=== PATIENT | male | born 1960 | race Two or more races ===

== ENCOUNTER 2020-08-10 17:47 | Outpatient (REF) | payer MEDICARE, MEDICAID, SELFPAY ==
--- NOTE | 2020-08-10 | US_ITS ---
EXAMINATION: US VENOUS ULTRASOUND WITH DOPPLER LOWER EXTREMITY, RIGHT CLINICAL INFORMATION: Right leg edema. COMPARISON: None. TECHNIQUE: Ultrasound of the deep veins is performed from the hip to the calf with compression sonography and color and pulse Doppler assessment. Spectral analysis with color-flow imaging is performed. FINDINGS: There is normal venous compression and respiratory variation and augmented flow. The visualized common femoral vein, superficial femoral vein, profunda femoral vein, popliteal vein, and the trifurcation region shows no evidence of deep venous thrombosis. There is no significant popliteal fossa cyst. There is a complex cystic area along the right thigh where a palpable lump is noted, suggestive of hematoma. It measures 5.0 x 1.9 x 8.0 cm. It is compressible. There is a small compressible varicosity seen in the calf region Incidental finding of a small lymph node left groin measuring 3.1 cm. US/US venous duplex LE RT IMPRESSION: No DVT demonstrated in the right lower extremity. Complex cystic area along the right thigh where patient has a palpable lump and known trauma. This is most suggestive of hematoma.
== END 2020-08-10 17:48 | disposition home or self-care (01) ==
LOC: HO.US 17:47
DX: R60.0 Localized edema (principal)
CPT/HCPCS: 93971

== ENCOUNTER 2020-08-10 18:31 | Emergency (ER) | payer MEDICARE, MEDICAID, SELFPAY ==
[2020-08-10 18:36] VITALS: BP 141/101; PULSE 95; RESP 16; TEMP 36.8; O2SAT 97; BMI 34.2
--- NOTE | 2020-08-10 18:56 | ECG_ITS ---
Test Reason : CHESTPAIN Blood Pressure : / mmHG Vent. Rate : 085 BPM Atrial Rate : 085 BPM P-R Int : 158 ms QRS Dur : 086 ms QT Int : 382 ms P-R-T Axes : 041 -14 049 degrees QTc Int : 454 ms Normal sinus rhythm with sinus arrhythmia Septal infarct (cited on or before 30-JUN-2020) Abnormal ECG When compared with ECG of 30-JUN-2020 23:12, Premature atrial complexes are no longer Present T wave amplitude has increased in Lateral leads Referred By: Naheed Enrique Electronically Signed By:SANTOSH BAUM MD
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
[2020-08-10 20:16] VITALS: BP 139/121; PULSE 88; RESP 12; TEMP 36.8; O2SAT 92
[2020-08-10 20:33] LABS: Hematocrit 36.1 % (42-52); Hemoglobin 11.8 g/dl (14.0-18.0); Mean Corpuscular HGB Conc 32.7 g/dl (31.0-36.0); Mean Corpuscular Hemoglobin 33.5 pg (27.0-33.0); Mean Corpuscular Volume 102.6 fL (80-98); Mean Platelet Volume 10.2 fL (9.4-12.4); Platelet Count 138 X10*3/uL (160-400); Red Blood Count 3.52 X10*6/uL (4.60-5.80); Red Cell Distribution Width 14.6 % (11.0-16.0); White Blood Count 5.9 X10*3/uL (4.8-10.8)
[2020-08-10 20:59] LABS: Anion Gap 12 (12-20); Blood Urea Nitrogen 14 mg/dL (9-16); Calcium 9.2 mg/dL (8.4-10.2); Carbon Dioxide 33 mmol/L (22-29); Chloride 97 mmol/L (96-108); Creatinine Clr Calc Pharmacy 96.8; Estimated Glomerular Filt Rate > 60; Glucose Random 105 mg/dL (60-115); Sodium 137 mmol/L (135-145)
[2020-08-10 21:01] VITALS: PULSE 101
--- NOTE | 2020-08-10 21:01 | PC.NURSE ---
Pt eating [employer], no distress, awaiting lab results
[2020-08-10 21:03] LABS: Alanine Aminotransferase 16 U/L (0-40); Alkaline Phosphatase 158 U/L (39-117); Aspartate Amino Transferase 27 U/L (5-37); Bilirubin Direct 0.3 mg/dL (0.0-0.5); Bilirubin Total 0.5 mg/dL (0.0-1.0); Lipase 18 U/L (8-78); Total Protein 8.4 g/dL (6.5-8.0)
[2020-08-10 21:05] LABS: B Type Natriuretic Peptide 50 pg/mL (<100); Troponin-I High Sensitivity 14.9 ng/L (<3.5-35.0)
[2020-08-10 21:07] LABS: Glucose Urine UA NEG (NEG); Leukocyte Esterase Urine NEG (NEG); Nitrite Urine NEG (NEG); PH 7.5 (5.0-8.0); Urine Blood NEG (NEG); Urine Ketones NEG (NEG); Urine Protein NEG (NEG-TRACE)
[2020-08-10 21:11] LABS: Appearance Urine CLEAR; Color Urine YELLOW; UACC Culture Trigger NO
[2020-08-10 21:20] LABS: D Dimer 3735 NG/ML
--- NOTE | 2020-08-10 21:26 | CT_ITS ---
EXAMINATION: CT ANGIOGRAM OF THE CHEST WITH AND WITHOUT CONTRAST (CT PULMONARY ANGIOGRAM FOR PE) CLINICAL INFORMATION: recent hospitalization, elevated D-dimer, SOB. COMPARISON: Chest CT 06/30/2020 TECHNIQUE: Prior to contrast administration, noncontrast localization images were obtained. Subsequently, multidetector volumetric imaging was performed from the thoracic inlet to below the diaphragms following the administration of 65 mL Omnipaque 350 intravenous contrast. No contrast reaction reported Sagittal, coronal, and MIP oblique sagittal reformatted images were obtained on the CT workstation, uploaded to PACS, and reviewed. This CT examination was performed using dose optimization techniques as appropriate, variously including the following: *Automated exposure control *Adjustment of mA and/or kV according to patient size (this includes techniques or standardized protocols for targeted exams where dose is matched to indication/reason for exam; i.e. extremities or head) *Use of iterative reconstruction technique Total exam dose-length product 416 mGy-cm FINDINGS: QUALITY OF STUDY/CONTRAST BOLUS: Satisfactory. PULMONARY ARTERIES: Evaluation of the segmental and subsegmental pulmonary arteries is limited by contrast underfilling. No central pulmonary embolus seen. THORACIC AORTA: No aneurysm or dissection. LUNG: There is new right middle lobe and right lower lobe consolidation, more likely atelectasis than aspiration or pneumonia. There is diffuse mosaic lung attenuation suggesting small airways disease. Patchy airspace opacities are seen in the periphery of the left upper lobe. There are new abnormalities and previously seen left upper lobe abnormalities have resolved. PLEURA: No pleural effusion or pneumothorax. MEDIASTINUM: Mild cardiomegaly. No pericardial effusion. There is unchanged fluid density adjacent the left trachea in image 20/72. No hilar or mediastinal lymphadenopathy. No evidence of septal bowing or right heart strain. CHEST WALL/AXILLA: No axillary or internal mammary lymphadenopathy. OSSEOUS STRUCTURES: No acute or suspicious osseous abnormality. UPPER ABDOMEN: There is a nodular hepatic contour consistent with cirrhosis. Likely bilateral renal cysts. There is a low density right adrenal nodule likely an adrenal adenoma No reflux of contrast into the hepatic veins to suggest elevated right heart pressures. IMPRESSION: No central pulmonary embolus. Limited evaluation of the segmental and subsegmental pulmonary arteries. New right middle lobe and right lower lobe consolidation, more likely atelectasis than aspiration or pneumonia. There is diffuse mosaic lung attenuation suggesting small airways disease. Nonspecific patchy opacities in the left upper lobe, possibly atelectasis. VTE: negative
[2020-08-10] MEDS: iohexoL 350 MG/ML 100 ML INFUS..BTL 65 ML IV (22:15)
[2020-08-10 23:53] VITALS: BP 142/99; PULSE 98; RESP 18; TEMP 37.1; O2SAT 96
[2020-08-11 00:39] LABS: Troponin-I High Sensitivity 15.7 ng/L (<3.5-35.0)
== END 2020-08-11 01:17 | disposition home or self-care (01) ==
PROVIDERS: Emergency Provider Emergency Medicine
DX: R07.89 Other chest pain (principal); I10 Essential (primary) hypertension; Z85.05 Personal history of malignant neoplasm of liver
CPT/HCPCS: 36415; 71045; 71275; 80048; 80076; 81003; 83690; 83880; 84484; 85027; 85379; 93005; 99284

== ENCOUNTER 2020-09-07 12:47 | Outpatient (REF) | payer MEDICARE, MEDICAID, SELFPAY ==
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
== END 2020-09-07 12:48 | disposition home or self-care (01) ==
LOC: HO.RESP 12:47
PROVIDERS: PCP Nurse Practitioner Primary Care; Visit Provider Nurse Practitioner Primary Care
DX: R06.02 Shortness of breath (principal)
CPT/HCPCS: 94060; 94727; 94729

== ENCOUNTER → 2020-09-21 14:57 | Outpatient (BNVA) | payer MEDICARE, MEDICAID, SELFPAY | PROVIDERS: PCP Nurse Practitioner Primary Care; Visit Provider Surgery | DX: S70.10XA Contusion of unspecified thigh, initial encounter (principal) | CPT/HCPCS: 99202 ==

== ENCOUNTER → 2020-11-23 13:58 | Outpatient (BNVA) | payer OTHER, MEDICARE, MEDICAID, SELFPAY | PROVIDERS: PCP Nurse Practitioner Primary Care; Visit Provider Internal Medicine Pulmonary Disease | DX: R06.00 Dyspnea, unspecified (principal); M54.9 Dorsalgia, unspecified; Z99.81 Dependence on supplemental oxygen; V89.2XXD Person injured in unspecified motor-vehicle accident, traffic, subsequent encounter | CPT/HCPCS: 99202 ==

== ENCOUNTER 2020-12-09 13:15 | Outpatient (REF) | payer MEDICARE, MEDICAID, SELFPAY ==
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
== END 2020-12-09 13:16 | disposition home or self-care (01) ==
LOC: HO.CT 13:15
PROVIDERS: Visit Provider Internal Medicine Pulmonary Disease
DX: R06.02 Shortness of breath (principal); R06.00 Dyspnea, unspecified
CPT/HCPCS: 71250

== ENCOUNTER 2020-12-09 13:46 | Outpatient (REF) | payer MEDICARE, MEDICAID, SELFPAY ==
--- NOTE | 2020-12-09 17:09 | PFT_ITS ---
FLOWS: FEV1 of 30% of predicted at 1.16 L. FVC 30% of predicted at 1.48 L. FEV1 to FVC ratio of 0.78. No bronchodilator response except in small to medium airways. LUNG VOLUMES: Total lung capacity 47% of predicted at 3.41 L. Residual volume 76% of predicted at 1.78 L. Slow vital capacity 33% of predicted at 1.63 L. Expiratory reserve volume 6% of predicted at 0.09 L. Diffusion capacity is severely decreased, diffusion capacity adjust to normal after correction for alveolar ventilation. In comparison to pulmonary function test performed on September 07, 2020, FEV1 has been without significant changes; FVC has decreased by 0.27 L; total lung capacity has decreased by 0.75 L; residual volume has decreased by 0.8 L; slow vital capacity and expiratory reserve volume have been without significant changes; diffusion capacity has decreased by 0.88 mL/minute per mmHg. IMPRESSION: Combined severe obstructive and restrictive ventilatory defect with no bronchodilator response except in small to medium airways. Decreased expiratory reserve volume suggests extrathoracic restriction likely secondary to abdominal obesity. MD BERRY Forrester/MODL / [id number]
== END 2020-12-09 13:47 | disposition home or self-care (01) ==
LOC: HO.RESP 13:46
PROVIDERS: PCP Nurse Practitioner Primary Care; Visit Provider Internal Medicine Pulmonary Disease
DX: R06.00 Dyspnea, unspecified (principal)
CPT/HCPCS: 94060; 94727; 94729

== ENCOUNTER → 2021-02-27 13:56 | Outpatient (REF) | payer MEDICARE, MEDICAID, SELFPAY ==
--- NOTE | 2021-02-27 13:59 | CA_ITS ---
Transthoracic Echocardiogram Patient (Last, First, Middle): Dequan Delgadillo, Gender: Male Date of : 1960 Age: 61 Procedure Date: 02/27/2021 Procedure Type: Transthoracic Echocardiogram Location: OP Height: 180.34 cm Weight: 107.05 kg BSA: 2.26 m2 Heart Rate: bpm BP: 140 / 90 mmHg Aging Room Hand: MARII Referring MD: Manny Leggett MD Symptoms: R06.00 - Dyspnea, unspecified Study Quality: Fair ECG Rhythm: Sinus Conclusions: - The left ventricular systolic function is normal. The visually estimated ejection fraction is between 60-65%. - Normal right ventricular cavity size and systolic function. - No obvious valvular pathology seen on this study. - Mild to moderate pulmonary hypertension is present. - The inferior vena cava is dilated and does not collapse with inspiration. - Interatrial shunt cannot be excluded. If clinically indicated, consider bubble study. Findings Left Ventricle Normal left ventricular cavity size. There is mildly increased left ventricular wall thickness. The left ventricular systolic function is normal. The visually estimated ejection fraction is between 60-65%. There is no evidence of regional wall motion abnormalities. Diastolic function is normal for age. Right Ventricle Normal right ventricular cavity size and systolic function. Atria The left atrium is normal in size. Interatrial shunt cannot be excluded. The right atrium is normal in size. Aortic Valve There is a normal trileaflet aortic valve. There is no aortic valve stenosis. There is no aortic valve regurgitation. Mitral Valve The mitral valve appears normal. There is no mitral valve regurgitation. There is no mitral valve stenosis. Pulmonic Valve The pulmonic valve was not well visualized. Tricuspid Valve Normal tricuspid valve structure. There is trace tricuspid valve regurgitation. The right ventricular systolic pressure is 47 mmHg. Mild to moderate pulmonary hypertension is present. Great Vessels The aortic annulus, sinuses of valsalva, and asc aorta are normal in size. Venous The inferior vena cava is dilated and does not collapse with inspiration. Pericardium/Pleural There is no evidence of pericardial effusion. Prior Study Comparison Changes noted compared to prior study dated: 08/13/2014. IVC not previously described. Pulmonary hypertension now present. Recommendations, Care & Conclusions No obvious valvular pathology seen on this study. Measurements 2D Linear Measurements IVSd: 1.12 0.6-0.9/0.6-1.0 cm LVIDd: 4.98 3.9-5.3/4.2-5.9 cm LVIDd Index: 2.20 2.4-3.2/2.2-3.1 cm/m2 LVIDs: 2.70 2.0-3.6 cm LVPWd: 1.10 0.7-1.1 cm Ao Root: 3.60 2.1-3.5 cm LA Diam: 4.30 2.7-3.8/3.0-4.0 cm LAIDs Index: 1.90 1.5-2.3 cm/m2 LV Mass: 259.73 67-162/88-224 g LV Mass Index: 114.93 43-95/49-115 g/m2 LVOT Diam: 2.30 3.0+(-)1.3 cm 2D Systolic Function EF 4C: 69.50 >55% EF 2C: 62.30 >55% EF BiP: 65.50 >55% Mitral Valve MV Pk E: 0.49 MV PK A: 0.53 MV Decel Time: 406.00 E/A: 0.90 E'Lateral: 13.30 E'Medial: 8.27 E/E' Med: 5.90 E/E' Lat: 3.70 PHT: 119.00 MVA PHT: 1.85 Decel Yates: 1.21 Aortic Valve AoV Pk Lanre: 1.57 AoV Mn Lanre: 0.96 AoV VTI: 0.30 AoV Pk Grad: 10.00 Aov Mn Grad: 4.00 NUBIA Cont.VTI: 3.32 LVOT LVOT Pk Lanre: 1.24 LVOT Mn Lanre: 0.77 LVOT VTI: 0.24 LVOT Pk Grad: 6.00 LVOT Mn Grad: 3.00 LVOT Diam: 2.30 LVOT Area: 4.15 Diastolic Function MV Pk E: 0.49 MV Pk A: 0.53 E/A: 0.90 E'Medial: 8.27 E/E' Med: 5.90 E' Laterial: 13.30 E/E' Lat: 3.70 Tricuspid Valve TR Pk Lanre: 2.85 TR Pk Grad: 32.00 RA Press: 15.00 RVSP: 47.00 Great Vessels Aorta Ao Root-2D: 3.60 2.0-3.7 cm Ao Asc: 3.30 2.1-3.4 cm Ao Arch: 2.60 Updated in Other Vendor System with Status of Final Robson Radford MD electronically signed on 02/28/2021 1:20:49 PM with status of Final
== END ==
LOC: HO.CARD 13:56
PROVIDERS: PCP Nurse Practitioner Primary Care; Visit Provider Internal Medicine Pulmonary Disease
DX: R06.00 Dyspnea, unspecified (principal)
CPT/HCPCS: 93306

== ENCOUNTER 2021-08-16 13:08 | Outpatient (REF) | payer MEDICARE, MEDICAID, SELFPAY ==
--- NOTE | ~2021-08-16 | XR_ITS ---
EXAMINATION: XR CHEST CLINICAL INFORMATION: COPD. Hypoxemia. COMPARISON: [facility] chest x-ray July [address] November 2020 TECHNIQUE: 2 views of the chest were obtained. FINDINGS: The cardiac and mediastinal contours are stable. There is elevation of the right hemidiaphragm that is unchanged. There is adjacent subsegmental atelectasis at the right lung base. The lungs are otherwise clear. There is no pleural effusion or pneumothorax. There is an old right anterior fourth rib fracture. There are degenerative changes of the spine. XR/XR chest 2V IMPRESSION: No acute disease in the chest. Elevated right hemidiaphragm and chronic segmental atelectasis at the right lung base. Findings are similar to previous exams.
[2021-08-16 13:26] LABS: MANUAL DIFF FLAG NO
[2021-08-16 14:22] LABS: Basophils Percent Auto 0.4 % (0-2); Eosinophils Absolute Auto 0.2 X10*3/uL (0.0-0.4); Eosinophils Percent Auto 3.1 % (0-4); Hematocrit 42.9 % (42-52); Hemoglobin 14.2 g/dl (14.0-18.0); Imm Gran Abs Auto 0.01 X10*3/uL (0.00-0.03); Imm Gran Pct Auto 0.2 % (0.0-0.4); Lymphocytes Absolute Auto 0.7 X10*3/uL (1.2-4.9); Lymphocytes Percent Auto 12.9 % (20-40); Mean Corpuscular HGB Conc 33.1 g/dl (31.0-36.0); Mean Corpuscular Hemoglobin 34.1 pg (27.0-33.0); Mean Corpuscular Volume 103.1 fL (80-98); Mean Platelet Volume 10.8 fL (9.4-12.4); Monocytes Absolute Auto 0.4 X10*3/uL (0.1-1.2); Monocytes Percent Auto 7.2 % (2-11); Neutrophils Absolute Auto 4.3 X10*3/uL (2.0-8.3); Neutrophils Percent Auto 76.2 % (45-73); Red Blood Count 4.16 X10*6/uL (4.60-5.80); Red Cell Distribution Width 12.8 % (11.0-16.0); White Blood Count 5.6 X10*3/uL (4.8-10.8)
[2021-08-16 14:23] LABS: Platelet Count 92 X10*3/uL (160-400)
[2021-08-16 14:50] LABS: Alanine Aminotransferase 20 U/L (0-40); Albumin Level 4.1 g/dL (3.5-5.0); Alkaline Phosphatase 114 U/L (39-117); Anion Gap 10 (12-20); Aspartate Amino Transferase 25 U/L (5-37); Bilirubin Total 0.7 mg/dL (0.0-1.0); Blood Urea Nitrogen 17 mg/dL (9-16); Calcium 8.9 mg/dL (8.4-10.2); Carbon Dioxide 34 mmol/L (22-29); Chloride 99 mmol/L (96-108); Estimated Glomerular Filt Rate > 60; Glucose Random 157 mg/dL (60-115); Potassium 4.7 mmol/L (3.3-5.1); Sodium 138 mmol/L (135-145); Total Protein 7.8 g/dL (6.5-8.0)
[2021-08-16 15:11] LABS: Syphilis Screen Nonreactive (Nonreactive); TSH reflex Free T4 1.39 uIU/mL (0.32-4.0); Vitamin D 25-OH Total 28.4 ng/mL (>30)
[2021-08-16 15:13] LABS: Microalbum/Creatinine Ratio Ur 10.9 ug/mg cr
[2021-08-17 08:58] LABS: HIV AB/AG Nonreactive (Nonreactive); HIV Num 1 0.06 S/CO (0.00-0.99)
[2021-08-17 09:47] LABS: HBS Num1 45.15 mIU/mL (0-7.99); HBc Num1 9.34 S/CO (0.00-0.79); HBsAGNum1 0.16 S/CO (0.00-0.99); Hepatitis B Surface Antigen Negative (Negative); ~Hepatitis B Surface Antibody REACTIVE (Nonreactive)
[2021-08-17 11:49] LABS: HBc Num3 9.03 S/CO; Hepatitis B Core Antibody Reactive (Nonreactive)
[2021-08-18 06:53] LABS: Hepatitis A Antibody IgG REACTIVE (Nonreactive); ~Hepatitis A Antibody IgG 9.24 S/CO (0.00-0.99)
[2021-08-18 07:38] LABS: Hepatitis A Antibody IgM 0.22 Index (0-0.79); ~Hepatitis A Antibody IgM Nonreactive (Nonreactive)
[2021-08-20 14:07] LABS: HCV Log PCR <1.18 NOT DETECTED Log IU/mL (NOT DETECTED); HepC Viral Load <15 NOT DETECTED IU/mL (NOT DETECTED)
== END 2021-08-16 13:09 | disposition home or self-care (01) ==
LOC: HO.LAB 13:08
PROVIDERS: PCP Nurse Practitioner Primary Care; Visit Provider Nurse Practitioner Primary Care
DX: Z01.84 Encounter for antibody response examination (principal); Z11.4 Encounter for screening for human immunodeficiency virus [HIV]; J44.9 Chronic obstructive pulmonary disease, unspecified; R09.02 Hypoxemia
CPT/HCPCS: 36415; 71046; 80053; 82043; 82306; 84443; 85025; 86704; 86706; 86708; 86709; 86780; 87340; 87389; 87522

== ENCOUNTER → 2021-08-24 09:58 | Outpatient (REF) | payer MEDICARE, MEDICAID, SELFPAY ==
--- NOTE | 2021-08-24 10:02 | CA_ITS ---
Acquisition Time: 2021-08-24 10:02:07 Total Exercise Time: 00:21:17 Test Indications: cp, sob Medications: see chart Protocol: DOBUTAMINE Max HR: 111 BPM 69% of Pred: 159 BPM Max BP: 122/090 mmHG Max Work Load: 1.0 METS Pharmacological stress test with Dobutamine infusion at peak of 30mcg/kg/min, achieving 69% MPHR With Stop of infusion due to drop in BP to low of 88/50 and report of lightheadeness. During infusion he was sitting and kicking his legs, moving arms, without anginal symptoms, with isolated PAC and on brief run of SVT 4 beats, with nondiagnostic EKG for ischemia due suboptimal heart rate. In recovery his BP initially improved then dropped to 70/54. He was placed in supine position and IV fluid opened wide. Recheck of BP 3 min later was 100/60. BP improved through remainder of recovery. He was transitioned into a sitting position which he tolerated without symptoms. He was then allowed to stand and march in place which he again tolerated without symptoms. EKG tracings remianed stable SR and heart rate settled back to baseline in recovery. He was given a snack of juice and crackers. His BP stablized. He was gvien a total of 350cc normal saline IV. He was recovered a total of 25 min, condition was asymptomatic and stable. He was allowed to leave cardiology dept, ambulating steady. Will notifiy Dr Morales of the above events. Test reviewed with Dr Payne. Referred By: Vitaliy Edwards Overread By: MATILDA RANDALL
== END ==
LOC: HO.CARD 09:58
PROVIDERS: PCP Nurse Practitioner Primary Care; Visit Provider Internal Medicine Cardiovascular Disease
DX: R06.02 Shortness of breath (principal)
CPT/HCPCS: 93017; J1250

== ENCOUNTER 2021-11-08 16:40 | Emergency (ER) | payer MEDICARE, MEDICAID, SELFPAY ==
[2021-11-08 18:43] VITALS: BP 127/82; PULSE 106; RESP 24; TEMP 35.9; O2SAT 71; BMI 31.9
[2021-11-08 19:06] VITALS: O2SAT 93
[2021-11-08] MEDS: Lidocaine HCl 2 % MPF 5 ML VIAL SUBCUT (19:08)
[2021-11-08] MEDS: Diphth,Pertus(ACell),Tet Adult 0.5 ML SYRINGE IM (19:23)
--- NOTE | 2021-11-08 19:54 | ED.WOUNDLAC ---
HPI - Wound/Laceration General Chief Complaint: Wound/Laceration Stated Complaint: finger lac Time Seen by Provider: 11/08/21 19:04 Source: patient Mode of arrival: ambulatory Limitations: no limitations History of Present Illness HPI narrative: 51-year-old male here with laceration to the right index finger after cutting it with a steak knife just prior to arrival. Tetanus status is unknown. The patient denies any numbness, tingling, weakness, fevers or chills. Of note the patient have underlying history of COPD. He normally is on 2 L of oxygen all this. Unfortunately he forgot his oxygen and drove here today by himself. During triage his oxygen saturation was 71% on room air. He denies any shortness of breath, cough, fevers, recent illnesses and is feeling well Related Data Home Medications Medication Instructions Recorded Confirmed albuterol sulfate 90 mcg/actuation INHALATION 09/21/20 aerosol inhaler amlodipine 5 mg tablet mg PO 09/21/20 clonidine HCl 0.1 mg tablet mg PO 09/21/20 ipratropium 20 mcg-albuterol 100 INHALATION 09/21/20 mcg/actuation mist for inhalation lisinopril 20 mg tablet mg PO 09/21/20 melatonin 10 mg tablet 10 mg PO BEDTIME PRN 09/21/20 methadone 10 mg/mL oral concentrate 10 mg PO DAILY 09/21/20 pantoprazole 40 mg tablet,delayed mg PO 09/21/20 release pregabalin 50 mg capsule mg PO 09/21/20 Previous Rx's Medication Instructions Recorded cholecalciferol (vitamin D3) 50 50 mcg PO DAILY 30 Days #30 cap 10/05/20 mcg (2,000 unit) capsule Allergies Allergy/AdvReac Type Severity Reaction Status Date / Time Penicillins [PENICILLINS] Allergy Intermediate UNKNOWN Verified 11/23/20 14:09 Gadolinium-Containing Allergy Mild VOMITING Verified 11/23/20 14:09 Contrast Medi [Gadolinium-Containing Contrast] Sulfa (Sulfonamide Allergy Unknown RASH Verified 11/08/21 18:43 Antibiotics) [SULFA (SULFONAMIDE ANTIBIOTICS)] temazepam [Restoril] Allergy Unknown Hallucinations, Verified 11/23/20 14:09 amnesia Review of Systems Review of Systems: Yes all other systems are reviewed and are negative Constitutional: Constitutional: Reports no additional constitutional complaints, Denies body ache(s), Denies chills, Denies fever(s), Denies headache(s) and Denies weakness Eyes: Eyes: Reports no additional eye complaints and Denies change in vision ENT: Reports system reviewed and no additional complaints, except as documented, Denies dizziness, Denies headache(s), Denies nasal congestion, Denies nasal discharge and Denies neck pain Cardiovascular: Cardiovascular: Reports no additional cardiovascular complaints, Denies chest pain, Denies leg edema and Denies dyspnea Respiratory: Respiratory: Reports no additional respiratory complaints, Denies cough and Denies dyspnea Gastrointestinal: Gastrointestinal: Reports no additional gastrointestinal complaints, Denies abdominal pain, Denies diarrhea, Denies nausea and Denies vomiting Genitourinary: Genitourinary: Denies urinary incontinence Musculoskeletal: Musculoskeletal: Reports no additional musculoskeletal complaints, Denies back pain, Denies arthralgias, Denies joint swelling, Denies neck pain, Denies numbness and Denies tingling Integumentary/Breasts: Skin/Breast: Reports system reviewed and no additional complaints, except as docu and Denies rash Comments: +laceration Neurologic: Reports system reviewed and no additional complaints, except as documented, Denies Abnormal speech present, Denies dizziness, Denies headache(s), Denies numbness, Denies tingling and Denies weakness PMFSH Past Medical History Attestation statement: The following information was validated with the patient. Source: old records reviewed and nursing notes reviewed Medical History Hepatitis C History of narcotic addiction Hypertension Hypertension Liver cancer Thigh hematoma Tuberculosis Surgical History H/O colonoscopy H/O hemorrhoidectomy Social History Social History Alcohol intake: never Years Smoked: 49 yrs Advance Directives: No Advance Directives Information Provided: Yes Physical Exam Vital Signs: Vital Signs: Last Vital Signs Temp 96.6 F L 11/08/21 18:43 Pulse 106 H 11/08/21 18:43 Resp 24 H 11/08/21 18:43 BP 127/82 11/08/21 18:43 Pulse Ox 93 11/08/21 19:06 BMI result Body Mass Index 31.9 Const: General: cooperative, healthy appearing, comfortable and no acute distress Orientation/consciousness: patient oriented x3 Limitations: no limitations HENMT: Head: Yes normal to inspection Ears: hearing grossly normal bilaterally General nose exam: Normal external nose present Face and sinus: Yes normal facial exam Mouth: Normal oral and palatal mucosa present Throat: Yes posterior oropharynx normal Eyes: General: appearance normal, both eyes and all related structures Pupils: Equal, round and reactive pupils present Neck: Neck: Yes normal visual inspection Chest: Chest palpation & inspection: normal inspection of the chest Resp: Effort & Inspection: normal respiratory effort Auscultation: clear to auscultation bilaterally Cardio: Rate: regular rate Rhythm: regular rhythm Peripheral pulses: Peripheral pulses 2+ throughout GI: Inspection: Yes normal to inspection Palpation (GI): Soft to palpation and nontender Auscultation: normal bowel sounds Back/Spine/Pelvis: Thoracic/Lumbar Spine: thoracic and lumbar spine normal to inspection Skin: General skin exam: no rashes or lesions noted Neuro: General: patient oriented x3, no focal motor deficits and normal sensation to monofilament Cranial nerves: Yes Equal, round and reactive pupils present Cognition (Neuro): normal cognition Speech: No Abnormal speech present Gait exam (Neuro): Normal gait present Motor exam (neuro): 5/5 motor strength present throughout Extrem: Other: To the dorsal aspect of the right index finger over the MCP there is a 2cm laceration with active bleeding. Patient able to flex and extend the difficulty with no pain. Neurovascular intact distally. Normal cap refill General: Yes normal to inspection Course Course Course Narrative: 61-year-old male here with laceration to the right index finger from a steak knife just prior to arrival. Patient has an active bleeding which is improved with direct pressure. Neurovascularly intact distally to the affected site. See procedure note for wound repair. Tetanus will be updated. Noted to have hypoxia triage. Patient has underlying history of COPD and did not bring his ambulatory oxygen tank with him although he is supposed to be on 2 L of oxygen all times. He denies any shortness of breath, chest pain, cough or recent illnesses and is feeling well. He was placed on oxygen when he was brought to a stretcher and his oxygen saturation improved to 92%. Lungs are clear. Patient has an oxygen tank in his car. On discharge he was brought to his car and he was able to use his own oxygen. Reviewed worrisome signs and symptoms with the patient when to return to the emergency department. Comfortable plan for discharge home MDM - Wound/Laceration Differential Diagnosis Differential diagnosis: Likely laceration Medical Records Attestation: I reviewed the patient's medical records. Lab Data Attestation: I reviewed the patient's lab results. Procedures Laceration Laceration 1: Site: hand (index finger) Side (If applicable): right Size (cm): 2 Description: linear Depth: simple, single layer Local Anesthetic: lidocaine 2% Amount of anesthesia used (mL): 5 Pre-repair: wound explored, irrigated extensively and deep structures intact Skin layer closed with: vicryl Size (cm): 5-0 Number of sutures: 3 Technique: simple, interrupted Discharge Plan Discharge Clinical Impression: Finger laceration Qualifiers: Encounter type: initial encounter Finger: index finger Damage to nail status: without damage Foreign body presence: without foreign body Laterality: right Qualified Code(s): S61.210A - Laceration without foreign body of right index finger without damage to nail, initial encounter Patient Disposition: Home, Self-Care Instructions: Finger Laceration (ED) Additional Instructions: Wash the area with soap and water daily Apply topical antibiotic ointment as needed Return in 7-10 days for suture removal Prescriptions: No Action cholecalciferol (vitamin D3) 50 mcg (2,000 unit) capsule 50 mcg PO DAILY 30 Days Qty: 30 RF: 3 lisinopril 20 mg tablet PO RF: 0 clonidine HCl 0.1 mg tablet PO RF: 0 pantoprazole 40 mg tablet,delayed release (DR/EC) PO RF: 0 melatonin 10 mg tablet 10 mg PO BEDTIME PRNRF: 0 albuterol sulfate 90 mcg/actuation HFA aerosol inhaler inhalation RF: 0 Combivent Respimat 20-100 mcg/actuation mist inhalation RF: 0 pregabalin 50 mg capsule PO RF: 0 amlodipine 5 mg tablet PO RF: 0 methadone 10 mg/mL concentrate 10 mg PO DAILY RF: 0 Referrals: Marci Cruz NP [Primary Care Provider] - 2 days Interventions: ED Discharge Assessment Last Done: 11/08/21 19:33 Discharge Date/Time: 11/08/21 19:33
== END 2021-11-08 19:33 | disposition home or self-care (01) ==
PROVIDERS: Emergency Provider Emergency Medicine; PCP Nurse Practitioner Primary Care
DX: S61.210A Laceration without foreign body of right index finger without damage to nail, initial encounter (principal); S60.511A Abrasion of right hand, initial encounter; W26.0XXA Contact with knife, initial encounter; Y93.9 Activity, unspecified; Y92.000 Kitchen of unspecified non-institutional (private) residence as the place of occurrence of the external cause; Y99.9 Unspecified external cause status; Z79.899 Other long term (current) drug therapy; Z99.81 Dependence on supplemental oxygen
CPT/HCPCS: 12001; 90471; 90715; 99284

== ENCOUNTER → 2022-06-20 15:15 | Outpatient (BNVA) | payer MEDICARE, MEDICAID, SELFPAY | PROVIDERS: PCP Nurse Practitioner Primary Care; Visit Provider Internal Medicine Pulmonary Disease | DX: J44.9 Chronic obstructive pulmonary disease, unspecified (principal); R09.02 Hypoxemia; R91.8 Other nonspecific abnormal finding of lung field; Z99.81 Dependence on supplemental oxygen | CPT/HCPCS: 99212 ==

== ENCOUNTER 2022-07-09 13:08 | Outpatient (REF) | payer MEDICARE, MEDICAID, SELFPAY ==
--- NOTE | ~2022-07-09 | CT_ITS ---
EXAMINATION: CT CHEST WITHOUT CONTRAST CLINICAL INFORMATION: Abnormal lung orantes finding. COMPARISON: 12/09/2020 and 08/10/2020. MRI of 06/01/2020 TECHNIQUE: Multidetector volumetric CT imaging of the chest was done. Axial MIP volume rendering provided. Sagittal and coronal reformatted images were obtained. This CT examination was performed using dose optimization techniques as appropriate, variously including the following: *Automated exposure control *Adjustment of mA and/or kV according to patient size (this includes techniques or standardized protocols for targeted exams where dose is matched to indication/reason for exam; i.e. extremities or head) *Use of iterative reconstruction technique DLP: 233 mGy-cm FINDINGS: LUNGS: Central airways are patent. There are sub-4 mm density seen bilaterally. There is bronchial wall thickening seen with mild bronchiectasis and parenchymal consolidation with some loss of volume within the right middle lobe and right lower lobe adjacent to the liver. There appears to be some improvement in the airspace disease from study of 12/09/2020. This may represent post therapy change for the hepatocellular carcinoma. There has been some improvement but not resolution in the subpleural peripheral regions of ground-glass opacity seen within the left upper lobe on study of 12/09/2020. There are a few new regions of subpleural ground-glass opacity at the anterior aspect of the right upper lobe and left upper lobe with an 8 mm ground-glass opacity within the right upper lobe on image [address] series #7. There is also an approximately 2.1 x 1.5 cm region of ground-glass opacity within the anterior right upper lobe on image 257 of 658 which extends vertically for approximately 2.1 cm. There is a 1.2 cm anterior subpleural ground-glass opacity within the left upper lobe on image 109 of 658. MEDIASTINUM: Heart normal size. Coronary artery calcifications seen. No pericardial effusion. No thoracic aortic aneurysm. No mediastinal or hilar lymphadenopathy. CORONARY ARTERY CALCIFICATION: Yes. PLEURA: No pleural effusion identified. There is pleural-parenchymal disease seen adjacent to the liver as described above. AXILLA: No lymphadenopathy. UPPER ABDOMEN: Faintly seen low-density region involving segments 6 and 7 of the liver with a small amount of contrast or calcification within it. It appears to measure approximately 11 x 6 cm in size but without IV contrast it is difficult to determine true size. No intrahepatic bile duct dilatation is appreciated. There is a mildly heterogeneous appearance to liver parenchyma with some lobulation. The liver is prominent with vertical span of approximately 20 cm. Cholelithiasis is present without evidence of acute cholecystitis. There are numerous low-density regions within the kidneys consistent with cysts. There is a 2 mm nonobstructive calculus seen within the upper pole of the left kidney. There is a 1.5 cm lipid rich right adrenal gland nodule. This is stable. OSSEOUS STRUCTURES: There are numerous old healed bilateral rib fractures. No suspicious destructive bony lesion identified. Compression fractures of T3 and T4 again noted. CT/CT chest wo IV con IMPRESSION: Some improvement of pleural-parenchymal disease seen adjacent to the liver within the right middle lobe and right lower lobe which may be related to previous hepatocellular carcinoma treatment. Some improvement of ground-glass opacities is seen of the peripheral aspect of the lungs and with a few new regions of ground-glass opacity seen about the anterior aspects of the right upper lobe and left upper lobe. Hepatic lesion difficult to tell size without IV contrast administration. Findings suggestive of hepatic cirrhosis. Stable right adrenal gland adenoma. Fleischner guidelines were followed.
== END 2022-07-09 13:09 | disposition home or self-care (01) ==
LOC: HO.CT 13:08
PROVIDERS: PCP Nurse Practitioner Primary Care; Visit Provider Internal Medicine Pulmonary Disease
DX: R91.8 Other nonspecific abnormal finding of lung field (principal)
CPT/HCPCS: 71250

== ENCOUNTER → 2022-07-11 15:17 | Outpatient (BNVA) | payer MEDICARE, MEDICAID, SELFPAY | PROVIDERS: PCP Nurse Practitioner Primary Care; Visit Provider Internal Medicine Pulmonary Disease | DX: J44.9 Chronic obstructive pulmonary disease, unspecified (principal); R91.8 Other nonspecific abnormal finding of lung field; J98.6 Disorders of diaphragm; R16.0 Hepatomegaly, not elsewhere classified | CPT/HCPCS: 99212 ==

== ENCOUNTER → 2022-08-16 15:17 | Outpatient (BNVA) | payer MEDICARE, MEDICAID, SELFPAY | PROVIDERS: PCP Nurse Practitioner Primary Care; Visit Provider Internal Medicine Pulmonary Disease | DX: J44.9 Chronic obstructive pulmonary disease, unspecified (principal); R91.8 Other nonspecific abnormal finding of lung field; J98.6 Disorders of diaphragm | CPT/HCPCS: 99212 ==

== ENCOUNTER 2022-09-12 11:41 | Outpatient (REF) | payer MEDICARE, MEDICAID, SELFPAY ==
[2022-09-12 12:13] LABS: INTERNATIONAL NORM RATIO 1.4 (0.9-1.1); Prothrombin Time 15.7 SEC (10.0-13.1)
[2022-09-12 12:15] LABS: Estimated Average Glucose 114 mg/dL; Hematocrit 41.2 % (42.0-52.0); Hemoglobin 13.7 g/dl (14.0-18.0); Hemoglobin A1c % 5.6 %; Mean Corpuscular HGB Conc 33.3 g/dl (31.0-36.0); Mean Corpuscular Hemoglobin 32.8 pg (27.0-33.0); Mean Corpuscular Volume 98.6 fL (80.0-98.0); Mean Platelet Volume 10.5 fL (9.4-12.4); Platelet Count 112 X10*3/uL (160-400); Red Blood Count 4.18 X10*6/uL (4.60-5.80); Red Cell Distribution Width 12.2 % (11.0-16.0); White Blood Count 9.2 X10*3/uL (4.8-10.8)
[2022-09-12 13:04] LABS: HBS Num1 51.93 mIU/mL (0-7.99); HBsAGNum1 0.21 S/CO (0.00-0.99); HIV AB/AG Nonreactive (Nonreactive); HIV Num 1 0.09 S/CO (0.00-0.99); Hepatitis B Surface Antigen Negative (Negative); ~Hepatitis B Surface Antibody REACTIVE (Nonreactive)
[2022-09-12 13:07] LABS: Hepatitis A Antibody IgG REACTIVE (Nonreactive); ~Hepatitis A Antibody IgG 7.64 S/CO (0.00-0.99)
[2022-09-12 13:34] LABS: Alanine Aminotransferase 72 U/L (0-40); Albumin Level 3.7 g/dL (3.5-5.0); Alkaline Phosphatase 189 U/L (39-117); Anion Gap 14 (12-20); Aspartate Amino Transferase 74 U/L (5-37); Bilirubin Total 1.1 mg/dL (0.0-1.0); Blood Urea Nitrogen 15 mg/dL (9-16); Calcium 8.7 mg/dL (8.4-10.2); Carbon Dioxide 25 mmol/L (22-29); Chloride 98 mmol/L (96-108); Cholesterol 119 mg/dL; Estimated Glomerular Filt Rate > 60; Glucose Random 146 mg/dL (60-115); HDL Cholesterol 45 mg/dL; LDL Cholesterol Calculated 64 mg/dl; Potassium 4.2 mmol/L (3.3-5.1); Sodium 133 mmol/L (135-145); TSH reflex Free T4 1.48 uIU/mL (0.32-4.0); Total Protein 7.7 g/dL (6.5-8.0); Triglycerides 51 mg/dL
[2022-09-12 15:01] LABS: HBc Num1 8.04 S/CO (0.00-0.79)
[2022-09-12 15:02] LABS: HBc Num2 8.16 S/CO; HBc Num3 7.86 S/CO; Hepatitis B Core Antibody Reactive (Nonreactive)
[2022-09-14 17:15] LABS: Hepatitis B Core Antibody IgM NON-REACTIVE (NON-REACTIVE)
== END 2022-09-12 11:42 | disposition home or self-care (01) ==
LOC: HO.LAB 11:41
PROVIDERS: PCP Nurse Practitioner Primary Care; Visit Provider Internal Medicine
DX: Z11.4 Encounter for screening for human immunodeficiency virus [HIV] (principal); R10.13 Epigastric pain; K74.60 Unspecified cirrhosis of liver; B19.20 Unspecified viral hepatitis C without hepatic coma; F19.90 Other psychoactive substance use, unspecified, uncomplicated; R06.00 Dyspnea, unspecified; R93.89 Abnormal findings on diagnostic imaging of other specified body structures; I10 Essential (primary) hypertension
CPT/HCPCS: 80053; 80061; 82105; 82306; 83036; 84443; 85027; 85610; 86704; 86705; 86706; 86708; 87340; 87389; 99212

== ENCOUNTER 2022-09-20 16:17 | Outpatient (REF) | payer MEDICARE, MEDICAID, SELFPAY ==
--- NOTE | ~2022-09-20 | MR_ITS ---
EXAMINATION: MR ABDOMEN WITHOUT AND WITH CONTRAST CLINICAL INFORMATION: Hepatomegaly. COMPARISON: Previous CT of the abdomen and pelvis June 2020 and MR of the abdomen most recent May 2020. TECHNIQUE: MR abdomen was performed without and with use of 10 mL intravenous Gadavist gadolinium contrast. Postcontrast images are performed in multiphase dynamic sequences. Imaging was performed in 3 planes. FINDINGS: LUNG BASES: Elevated right hemidiaphragm. Atelectasis at the right lung base. LIVER, GALLBLADDER, AND BILIARY TREE: The liver is cirrhotic. The previously treated lesion in the posterior segment of the right lobe of the liver measures 3.5 x 4.3 cm. High signal on T1-weighted sequences, heterogeneous but predominantly low signal on T2-weighted sequences demonstrates no evidence of enhancement consistent with previously treated lesion. There is new thrombus in the right portal vein. There is question of some enhancement of the thrombosed main portal vein or tumor thrombus. There is a new large wedge-shaped area of abnormal enhancement in the right lobe of the liver, question representing perfusion effects secondary to portal vein thrombus. There are 3 new focal areas in the posterior segment of the right lobe of the liver measuring 1 cm, irregularly-shaped 3 cm lesion and smaller adjacent 1 cm lesion that are suspicious, for example, axial image 41, 46 and 48 series 102 postcontrast. There are several small areas of early arterial phase enhancement. These are not appreciated on other sequences. Largest area measures 6 mm in the medial segment of the left lobe of the liver, axial image 59 series 100. The gallbladder is contracted. There are gallstones. The gallbladder wall may be slightly thickened. PANCREAS: Pancreas appears atrophic. SPLEEN: Slightly enlarged measuring 14 cm in length. ADRENAL GLANDS: Stable 1 cm lesion in the right adrenal gland with loss of signal on [id number] sequences suggestive of a benign lipid-rich adenoma. Normal left adrenal gland. KIDNEYS AND URETERS: Multiple bilateral renal cysts. Kidneys are otherwise unremarkable. GASTROINTESTINAL TRACT: No bowel obstruction. No ascites or fluid collection. ABDOMINAL WALL: Small ventral hernia containing fat. LYMPH NODES: Stable periportal and upper abdominal retroperitoneal lymphadenopathy. VASCULAR: Unremarkable. Thrombus in the right portal vein and question some enhancement or tumor thrombus. Main and left portal veins are patent. Hepatic veins are patent. Vascular structures are otherwise unremarkable. No appreciable varices. No ascites. OSSEOUS STRUCTURES: Marrow signal normal. Degenerative changes. MR/MR abdomen wo/w con IMPRESSION: New right portal vein thrombus and question some enhancement suggestive of tumor thrombus and 3 new areas of abnormal signal and enhancement in the posterior segment of the right lobe of the liver worrisome for malignancy. Cirrhotic-appearing liver. Stable post ablation changes in the posterior segment of the right lobe. Contracted gallbladder and gallstones. Slightly enlarged spleen. Multiple renal cysts. Stable right adrenal lesion probably representing a benign lipid-rich adenoma. Findings will be communicated by the [place] work flow frame nailer.
== END 2022-09-20 16:18 | disposition home or self-care (01) ==
LOC: HO.MRI 16:17
PROVIDERS: Visit Provider Internal Medicine
DX: R16.0 Hepatomegaly, not elsewhere classified (principal)
CPT/HCPCS: 74183; A9585

== ENCOUNTER 2022-10-04 10:52 | Outpatient (RCR) | payer MEDICARE, MEDICAID, SELFPAY ==
[2022-10-04 11:10] VITALS: BP 113/66; PULSE 61; RESP 14; TEMP 36.8; O2SAT 93; BMI 34.9
--- NOTE | 2022-10-04 11:38 | P.CNHO_ITS ---
Subjective - Subjective Chief complaint: None reported Patient: new to practice Consult date: 10/04/22 Requesting Physician: Dr. Segundo Primary Care Provider: Marci Cruz NP Medical Summary: Diagnosis: HCC, history of hepatitis C status post treatment HPI - Consult Narrative Reason for consult: history of hepatocellular carcinoma Narrative: Dequan Delgadillo is a 62 year old male with history of hepatitis C status post treatment with Sovaldi with reported SVR 2013, history of hepatocellular carci noma status post ablation in [address] [facility] who has been referred for abnormal scan. He was seen recently by Dr. Segundo, previously by Dr. Sam in April 2020. Patient presented with some epigastric discomfort and abdominal pain. He quit drinking alcohol but he says he relapsed with IV drug abuse in the recent months. He injects cocaine. Because of his abdominal complaints, he had an MRI of abdomen in September 2022 which showed new right portal vein thrombus and question enhancement suggestive of tumor thrombus and 3 new areas of abnormal signal and enhancement in the posterior segment of right lobe of liver worrisome for malignancy. Cirrhotic appearing liver. He says he no longer has abdominal pain. Denies nausea or emesis. No loss of appetite or weight loss. Review of Systems - Constitutional Denies anorexia, Denies fatigue, Denies fever(s), Denies malaise, Denies night sweats, Denies weight loss - Gastrointestinal Reports abdominal pain Oncology Screenings - ECOG Performance Status ECOG Performance Status: 0 PMFSH Medical History: Medical History (Last Reviewed 10/04/22 @ 11:12 by Christa Valente) Hepatitis C History of narcotic addiction Hypertension Hypertension Liver cancer Supplemental oxygen dependent Thigh hematoma Tuberculosis Surgical History: Surgical History (Last Reviewed 10/04/22 @ 11:12 by Christa Valente) H/O colonoscopy H/O hemorrhoidectomy Social History: Social History (Last Updated 10/04/22 @ 11:13 by Christa Valente) Living Situation History: Household Members: Family Housing: Apartment Alcohol History Details: 1. How often do you have a drink containing alcohol?: a. Never Tobacco History: Patient Tobacco Use Status: Current everyday Tobacco Years Smoked: 49 yrs Substance Use History: Use of substances other than those prescribed or required for medical reasons : Yes Domestic Abuse History: Have you been hit, kicked, punched, or otherwise hurt by someone within the past year? If so, by whom?: No Do you feel safe in your current relationship?: No Current Relationship Homicidal Assessment: Do you have thoughts of harming others: None Do you have a plan to hurt others: No Plan Do you have the means to hurt others: No Nutrition Assessment: Recently lost weight without trying: No Occupation Assessmet: service: Yes service comment: [employer] Current occupational status: disabled Home Medications and Allergies Home Medications Medication Instructions Recorded Confirmed Type albuterol sulfate 90 mcg/actuation 90 mcg inhalation DIRECTED 09/21/20 10/04/22 History aerosol inhaler clonidine HCl 0.1 mg tablet 0.1 mg PO DAILY 09/21/20 10/04/22 History ipratropium 20 mcg-albuterol 100 2 puff inhalation DIRECTED 09/21/20 10/04/22 History mcg/actuation mist for inhalation methadone 10 mg/mL oral concentrate 10 mg PO DAILY 09/21/20 10/04/22 History pantoprazole 40 mg tablet,delayed 40 mg PO DAILY 09/21/20 10/04/22 History release pregabalin 50 mg capsule 50 mg PO DAILY 09/21/20 10/04/22 History amlodipine 10 mg tablet 10 mg PO DAILY 09/12/22 10/04/22 History atorvastatin 20 mg tablet 20 mg PO DAILY 09/12/22 10/04/22 History lisinopril 30 mg tablet 30 mg PO DAILY 09/12/22 10/04/22 History cholecalciferol (vitamin D3) 50 50 mcg PO DAILY 10/04/22 10/04/22 History mcg (2,000 unit) capsule (Vitamin D3) fluticasone fur. 200 mcg-umeclid 1 inh inhalation DAILY wheezing 10/04/22 10/04/22 History 62.5 mcg-vilant 25 mcg inhalat.powder (Trelegy Ellipta) Allergies Allergy/AdvReac Type Severity Reaction Status Date / Time Penicillins [PENICILLINS] Allergy Intermediate UNKNOWN Verified 10/04/22 11:14 Gadolinium-Containing Allergy Mild VOMITING Verified 10/04/22 11:14 Contrast Medi [Gadolinium-Containing Contrast] Sulfa (Sulfonamide Allergy Unknown RASH Verified 10/04/22 11:14 Antibiotics) [SULFA (SULFONAMIDE ANTIBIOTICS)] temazepam [Restoril] Allergy Unknown Hallucinations, Verified 10/04/22 11:14 amnesia Physical Exam Vital signs: Vital Signs Temp 98.2 F 10/04/22 11:10 Pulse 61 10/04/22 11:10 Resp 14 10/04/22 11:10 BP 113/66 10/04/22 11:10 Pulse Ox 93 10/04/22 11:10 O2 Del Method 10/04/22 11:10 Intake & Output 10/03/22 10/04/22 10/04/22 18:59 06:59 18:59 Other: Weight 107.4 kg Weight in Grams [id number] Weight 107.4 kg - Constitutional Present: no acute distress - Routine HEENT Exam Head: Present: normal inspection Eye: Present: EOMI, PERRL - Routine Neck Exam Present: supple. Absent: lymphadenopathy - Routine Respiratory Exam Absent: accessory muscle use - Routine Cardiovascular Exam Cardiovascular: Present: S1, S2 - Routine Abdominal Exam Present: soft - Routine Extremities Exam Present: normal inspection - Routine Skin Exam Present: intact - Routine Neurological Exam Present: alert, oriented X3 Hem/Onc Consult Result - Labs CBC & Chem 7: 10/04/22 11:44 Assessment and Plan Patient Active problem list reviewed?: Yes (1) Hepatocellular carcinoma Problem details: Treated at [facility], transit embolic catheterization and microwave ablation Dr. Lazcano. Status: Chronic Assessment and plan: 1. This is a 62-year-old male with chronic liver cirrhosis related to hepatitis- C that has been treated, hepatocellular carcinoma for which he received liver directed therapy at [facility]. TACE and microwave ablation by Dr Lazcano as per GI records. MRI abdomen with and without contrast performed 09/2022 demonstrated cirrhotic liver with previously treated lesion measuring 3.5 x 4.3 cm. New thrombus in the right portal vein, question of enhancement or thrombosed main portal vein or tumor thrombus.Three new areas of abnormal segment and enhancement in the posterior segment of right lobe of liver worrisome for malignancy. Cirrhotic appearing liver. Stable post ablation changes in the posterior segment of right lobe. AFP level performed 09/12/2022 was 5 NG /mL. I do not have any previous records from [facility]. If he has abdominal pain this could be related to new portal vein thrombus. He will be started on anticoagulation. For further management, he would like to be referred back to [facility]. I thank you for this referral. - Time Spent With Patient Time Spent with Patient (in minutes): 30
[2022-10-04 12:26] LABS: Alanine Aminotransferase 32 U/L (0-40); Albumin Level 3.7 g/dL (3.5-5.0); Alkaline Phosphatase 216 U/L (39-117); Anion Gap 11 (12-20); Aspartate Amino Transferase 29 U/L (5-37); Blood Urea Nitrogen 26 mg/dL (9-16); Carbon Dioxide 31 mmol/L (22-29); Chloride 100 mmol/L (96-108); Creatinine Clr Calc Pharmacy 81.8; Estimated Glomerular Filt Rate > 60; Glucose Random 140 mg/dL (60-115); Potassium 5.2 mmol/L (3.3-5.1); Sodium 137 mmol/L (135-145); Total Protein 7.7 g/dL (6.5-8.0)
[2022-10-04 12:43] LABS: Bilirubin Total 0.4 mg/dL (0.0-1.0)
--- NOTE | 2022-10-04 12:53 | MHC.HEMONCMA ---
patient seen today for new consult for previous hepatocellular carcinoma, VSS, patient to be referred back to [facility] for HCC.
--- NOTE | 2022-10-08 13:39 | MHC.HEMONCMA ---
Gave Kamini message to book patient and call him with 1 month followup.
--- NOTE | 2022-11-30 15:18 | MHC.HEMONC ---
Triage call: Received call from Bere at [facility] in regards to patient's anticoagulation. No current orders that patient has been started on medication. Dr. Evans out of office today. marketing communications assistant Christa to address with Saturday.
--- NOTE | 2022-12-03 12:47 | MHC.HEMONCMA ---
Tried to reach Robert from [employer] [phone] to let her know that anticoagulation will be done here at [facility] [facility], unable to touch base or leave [facility] for her/ Will wait for call back.
== END 2023-06-17 | disposition home or self-care (01) ==
LOC: HO.ONC 10:52
PROVIDERS: PCP Nurse Practitioner Primary Care; Referring Provider Internal Medicine; Visit Provider Internal Medicine
DX: I81 Portal vein thrombosis (principal); B19.20 Unspecified viral hepatitis C without hepatic coma; K74.60 Unspecified cirrhosis of liver; Z85.05 Personal history of malignant neoplasm of liver
CPT/HCPCS: 36415; 80053; 99205

== ENCOUNTER 2022-10-09 10:02 | Outpatient (REF) | payer MEDICARE, MEDICAID, SELFPAY ==
[2022-10-10 05:56] LABS: ~HepC Num1 12.23 S/CO (0.00-0.79); ~Hepatitis C Antibody Reactive (Nonreactive)
[2022-10-12 13:28] LABS: HCV Log PCR <1.18 NOT DETECTED Log IU/mL (NOT DETECTED); HepC Viral Load <15 NOT DETECTED IU/mL (NOT DETECTED)
== END 2022-10-09 10:03 | disposition home or self-care (01) ==
LOC: HO.LAB 10:02
PROVIDERS: PCP Nurse Practitioner Primary Care; Referring Provider Nurse Practitioner Primary Care; Visit Provider Internal Medicine
DX: K74.60 Unspecified cirrhosis of liver (principal); C22.0 Liver cell carcinoma; R93.5 Abnormal findings on diagnostic imaging of other abdominal regions, including retroperitoneum; I81 Portal vein thrombosis; K76.82 Hepatic encephalopathy; B19.20 Unspecified viral hepatitis C without hepatic coma; F19.90 Other psychoactive substance use, unspecified, uncomplicated; R06.00 Dyspnea, unspecified
CPT/HCPCS: 36415; 86803; 87522; 99212

== ENCOUNTER 2022-10-10 07:51 | Outpatient (REF) | payer MEDICARE, MEDICAID, SELFPAY | END 2022-10-10 07:52 | disposition home or self-care (01) | LOC: HO.LAB 07:51 | PROVIDERS: Visit Provider Internal Medicine | DX: Z13.89 Encounter for screening for other disorder (principal) ==

== ENCOUNTER → 2022-10-16 07:08 | Outpatient (REF) | payer MEDICARE, MEDICAID, SELFPAY ==
--- NOTE | 2022-10-16 07:14 | CA_ITS ---
Transthoracic Echocardiogram Patient (Last, First, Middle): Dequan Delgadillo, Gender: Male Date of : 1960 Age: 62 Procedure Date: 10/16/2022 Procedure Type: Transthoracic Echocardiogram Location: OP Height: 175.26 cm Weight: 108.86 kg BSA: 2.23 m2 Heart Rate: bpm BP: 122 / 70 mmHg Mail Technician: Referring MD: Alisia Segundo MD Senior Engineering Team Leader: Rene Payne MD Symptoms: R06.00 - Dyspnea, unspecified, bubble used to emily Pul HTN Study Quality: Good ECG Rhythm: Sinus Conclusions: - 1. Intracardiac shunting at the atrial level, most suggestive of PFO 2. Normal LV systolic function with mild LVH with grade 1 diastolic dysfunction 3. Mildly dilated right-sided chambers with normal RV systolic function 4. Upper limits of normal RV systolic pressure 5. Mildly dilated ascending aorta 3.9 cm 6. No pericardial effusion Findings Left Ventricle Normal left ventricular size and systolic function. There is mildly increased left ventricular wall thickness. The visually estimated ejection fraction is between 60-65%. Spectral Doppler is indicative of an impaired relaxation filling pattern. E/E prime ratio is <8, consistent with normal filling pressures. Evidence suggests grade I (mild) diastolic dysfunction. Right Ventricle Mildly increased right ventricular cavity size. There is normal right ventricular systolic function. Atria The left atrium is normal in size. Contrast study for right to left shunting is moderately positive. Patent foramen ovale detected using by contrast. There is shunt reversal with the release phase of the Valsalva maneuver. The right atrium is likely dilated. Aortic Valve The aortic valve structure and function is likely normal. There is no aortic valve stenosis. There is no aortic valve regurgitation. Mitral Valve Normal mitral valve structure and function. There is trace mitral valve regurgitation. There is no mitral valve stenosis. Pulmonic Valve The pulmonic valve was not well visualized. Tricuspid Valve Likely normal tricuspid valve structure and function. There is trace tricuspid valve regurgitation. Normal right atrial pressure. There is no evidence of pulmonary hypertension. Great Vessels The pulmonary artery was not well visualized. There is mild dilatation of the ascending aorta measuring 3.90 cm. Venous The inferior vena cava is normal in size and collapses greater than 50% with inspiration. Pericardium/Pleural There is no evidence of pericardial effusion. Recommendations, Care & Conclusions Consider a MERVAT if clinically appropriate. Measurements 2D Linear Measurements IVSd: 1.24 0.6-0.9/0.6-1.0 cm LVIDd: 4.88 3.9-5.3/4.2-5.9 cm LVIDd Index: 2.19 2.4-3.2/2.2-3.1 cm/m2 LVIDs: 3.09 2.0-3.6 cm LVPWd: 1.26 0.7-1.1 cm Ao Root: 3.40 2.1-3.5 cm LA Diam: 5.20 2.7-3.8/3.0-4.0 cm LAIDs Index: 2.33 1.5-2.3 cm/m2 LV Mass: 297.16 67-162/88-224 g LV Mass Index: 133.26 43-95/49-115 g/m2 LVOT Diam: 2.30 3.0+(-)1.3 cm Mitral Valve MV Pk E: 0.56 MV PK A: 0.86 MV Decel Time: 297.00 E/A: 0.60 E'Lateral: 11.20 E'Medial: 10.40 E/E' Med: 5.40 E/E' Lat: 5.00 PHT: 87.00 MVA PHT: 2.53 Decel [place]: 1.88 Aortic Valve AoV Pk Lanre: 1.52 AoV Mn Lanre: 0.86 AoV VTI: 0.30 AoV Pk Grad: 9.00 Aov Mn Grad: 4.00 NUBIA Cont.VTI: 3.50 LVOT LVOT Pk Lanre: 1.27 LVOT Mn Lanre: 0.80 LVOT VTI: 0.25 LVOT Pk Grad: 6.00 LVOT Mn Grad: 3.00 LVOT Diam: 2.30 LVOT Area: 4.15 Diastolic Function MV Pk E: 0.56 MV Pk A: 0.86 E/A: 0.60 E'Medial: 10.40 E/E' Med: 5.40 E' Laterial: 11.20 E/E' Lat: 5.00 Right Ventricle TAPSE (mm): 28.00 Tricuspid Valve TR Pk Lanre: 2.91 TR Pk Grad: 34.00 RA Press: 3.00 RVSP: 37.00 Great Vessels Aorta Ao Root-2D: 3.40 2.0-3.7 cm Ao Asc: 3.90 2.1-3.4 cm Pulmonary Valve PV Pk Lanre: 0.99 Peak PV Grad: 4.00 Updated in Other Vendor System with Status of Final Rene Payne MD electronically signed on 10/17/2022 4:30:41 PM with status of Final
== END ==
LOC: HO.CARD 07:08
PROVIDERS: Visit Provider Internal Medicine
DX: R06.00 Dyspnea, unspecified (principal)
CPT/HCPCS: 93306

== ENCOUNTER 2022-11-08 06:54 | Day surgery (SDC) | payer MEDICARE, MEDICAID, SELFPAY ==
[2022-11-05 14:49] VITALS: BMI 33.7
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
[2022-11-08 08:37] LABS: Amphetamine Screen Urine Not Detected (Not Detect); Barbiturates, Urine Not Detected (Not Detect); Benzodiazepines Screen Urine Not Detected (Not Detect); Cannabinoid Screen Urine POSITIVE (Not Detect); Cocaine Screen Urine Not Detected (Not Detect); Fentanyl, urine POSITIVE (Not Detect); Opiate Screen Urine Not Detected (Not Detect); Phencyclidine Screen Urine Not Detected (Not Detect)
[2022-11-08 08:40] VITALS: BP 135/84; PULSE 74; RESP 18; TEMP 36.7; O2SAT 93
[2022-11-08] MEDS: Lactated Ringers 1,000 ML 100 ML IVCONT (09:01)
--- NOTE | 2022-11-08 09:14 | MHC.SHP ---
Pre-Procedural Eval Section A Date of Service: 11/08/22 The History & Physical has been completed within 30 days and I have reviewed it.: Yes Section B Chief Complaint: Cirrhosis, HCC, anemia Allergies: Allergies Allergy/AdvReac Type Severity Reaction Status Date / Time Gadolinium-Containing Allergy Mild VOMITING Verified 10/09/22 10:07 Contrast Medi [Gadolinium-Containing Contrast] Sulfa (Sulfonamide Allergy Unknown RASH Verified 10/09/22 10:07 Antibiotics) [SULFA (SULFONAMIDE ANTIBIOTICS)] temazepam [Restoril] Allergy Unknown Hallucinations, Verified 10/09/22 10:07 amnesia Plan Diagnosis/Plan: Unchanged I have reviewed the history and physical and performed a pertinent physical examination on my patient. No changes have occurred unless specified. UTOx noted, okay to proceed as per anesthesia provider. Time Spent With Patient Time: Total time managing care of this patient today ____ minutes.
--- NOTE | 2022-11-08 10:13 | P.OP_ITS ---
Operative Note Operative Note Date of Service: 11/08/22 Narrative: Procedure:?Esophagogastroduodenoscopy and Colonoscopy Indication:?Cirrhosis, HCC, anemia Endoscopist:?Alisia Segundo MD Anesthesia Provider:?Dr Hank Rivas Anesthesia type:?MAC Instrument:?Olympus GIF-H190 and PCF-H190L EGD Procedure:?? The procedure, indications, preparation and potential complications were reviewed with the patient who indicated understanding and gave written informed consent to proceed. A physical exam was performed. The endoscope was introduced through the mouth, and advanced to the second part of duodenum. The mucosa was carefully examined on slow withdrawal of the endoscope. The patient tolerated the procedure well. There were no immediate complications.? ? EGD Findings:? * Esophagus:? Small esophageal varix which flattened out on insufflation. No high risk stigmata noted. The Z line was at 40cm. * Stomach:? Esophageal varix continued down to cardia (consistent with GOV-1 varix). Diffuse congestion and erythema in mosaic pattern consistent with portal hypertensive gastropathy was noted in the whole stomach. * Duodenum:? Normal mucosa was noted in the whole of the examined duodenum. ? Colonoscopy Procedure:? The patient was then turned for the colonoscopy. A digital rectal exam was performed which was normal. The colonoscope was then inserted through the anus and advanced through the colon to the cecum at 75 cm. The appendiceal orifice and ileocecal valve was identified.? Mucosa was carefully examined under high definition white light as the instrument was slowly withdrawn in a retrograde panoramic fashion. Retroflexion was performed in rectum. The procedure was not difficult. There were no immediate obvious complications. The quality of the prep was BBPS: 2+2+2 = adequate Withdrawal time 12 minutes. Limitations: No limitations Colonoscopy findings: Mucosa: Erythema and ulcerations were noted around splenic flexure at 50-55 cm and 60-65 cm. Cold forceps biopsies were taken to rule out ischemia. Protruding lesions: * Rectal varices. The rectum could not be completely insufflated to assess the grade of varices due to poor anal tone and failure to retain air in rectum. No high risk stigmata was noted. * Large internal hemorrhoids Impression:? * Gastroesophageal varices * Portal hypertensive gastropathy * Normal duodenum * Ulceration around splenic flexure (biopsy) * Rectal varices * Internal hemorrhoids Recommendations:?? * Small varices without high risk stigmata, however as pt has decompensated cirrhosis will start NSBB. Nadolol 20mg po once daily started to be uptitrated as tolerated by HR and BP. * Follow path results * Avoid NSAIDs, cocaine Above has been reviewed with the patient.
[2022-11-08 10:16] VITALS: BP 107/75; PULSE 60; RESP 12; TEMP 36.2; O2SAT 92
[2022-11-08 10:31] VITALS: BP 112/78; PULSE 61; RESP 16; O2SAT 96
[2022-11-08 10:41] VITALS: BP 101/69; PULSE 61; RESP 16; TEMP 36.2; O2SAT 95
== END 2022-11-08 11:00 | disposition home or self-care (01) ==
PROVIDERS: Nurse Practitioner; PCP Nurse Practitioner Primary Care; Visit Provider Internal Medicine
PROC: (CPT 45380; principal; 2022-11-08 09:10)
DX: D64.9 Anemia, unspecified (principal); C22.0 Liver cell carcinoma; K63.5 Polyp of colon; K64.8 Other hemorrhoids; I86.8 Varicose veins of other specified sites; K63.3 Ulcer of intestine; C22.9 Malignant neoplasm of liver, not specified as primary or secondary; K74.60 Unspecified cirrhosis of liver; B19.20 Unspecified viral hepatitis C without hepatic coma; K76.6 Portal hypertension; K31.89 Other diseases of stomach and duodenum; I81 Portal vein thrombosis; I86.4 Gastric varices; J44.9 Chronic obstructive pulmonary disease, unspecified; R06.00 Dyspnea, unspecified; I10 Essential (primary) hypertension; A15.9 Respiratory tuberculosis unspecified; Z99.81 Dependence on supplemental oxygen; F14.99 Cocaine use, unspecified with unspecified cocaine-induced disorder; F10.90 Alcohol use, unspecified, uncomplicated; F11.90 Opioid use, unspecified, uncomplicated; Z79.51 Long term (current) use of inhaled steroids; Z79.899 Other long term (current) drug therapy; Z88.2 Allergy status to sulfonamides; Z88.8 Allergy status to other drugs, medicaments and biological substances; F17.210 Nicotine dependence, cigarettes, uncomplicated
CPT/HCPCS: 45380; 43235; 80307; 88305; J3010

== ENCOUNTER 2023-01-08 11:53 | Outpatient (REF) | payer MEDICARE, MEDICAID, SELFPAY ==
[2023-01-08 14:01] LABS: Hematocrit 37.5 % (42.0-52.0); Mean Corpuscular Hemoglobin 32.6 pg (27.0-33.0); Mean Corpuscular Volume 101.9 fL (80.0-98.0); Mean Platelet Volume 11.2 fL (9.4-12.4); Red Blood Count 3.68 X10*6/uL (4.60-5.80); Red Cell Distribution Width 13.2 % (11.0-16.0); White Blood Count 7.4 X10*3/uL (4.8-10.8)
[2023-01-08 14:02] LABS: Platelet Count 98 X10*3/uL (160-400)
[2023-01-08 14:06] LABS: INTERNATIONAL NORM RATIO 1.5 (0.9-1.1); Prothrombin Time 17.2 SEC (10.0-13.1)
[2023-01-08 14:32] LABS: Alanine Aminotransferase 47 U/L (0-40); Albumin Level 3.1 g/dL (3.5-5.0); Alkaline Phosphatase 271 U/L (39-117); Anion Gap 12 (12-20); Aspartate Amino Transferase 35 U/L (5-37); Bilirubin Total 1.3 mg/dL (0.0-1.0); Blood Urea Nitrogen 24 mg/dL (9-16); Calcium 8.6 mg/dL (8.4-10.2); Carbon Dioxide 30 mmol/L (22-29); Chloride 100 mmol/L (96-108); Estimated Glomerular Filt Rate > 60; Glucose Random 102 mg/dL (60-115); Potassium 5.1 mmol/L (3.3-5.1); Sodium 137 mmol/L (135-145); Total Protein 7.1 g/dL (6.5-8.0)
[2023-01-09 13:53] LABS: HCV RNA PCR Qn <1.18 NOT DETECTED Log IU/mL (NOT DETECTED); HCV RNA PCR Qn <15 NOT DETECTED IU/mL (NOT DETECTED)
== END 2023-01-08 11:54 | disposition home or self-care (01) ==
LOC: HO.LAB 11:53
PROVIDERS: PCP Nurse Practitioner Primary Care; Referring Provider Nurse Practitioner Primary Care; Visit Provider Internal Medicine
DX: K74.60 Unspecified cirrhosis of liver (principal); C22.0 Liver cell carcinoma; R93.5 Abnormal findings on diagnostic imaging of other abdominal regions, including retroperitoneum; I81 Portal vein thrombosis; K76.82 Hepatic encephalopathy; B19.20 Unspecified viral hepatitis C without hepatic coma; F14.90 Cocaine use, unspecified, uncomplicated; R06.00 Dyspnea, unspecified; Z79.899 Other long term (current) drug therapy
CPT/HCPCS: 36415; 80053; 85027; 85610; 87522; 87902; 99212

== ENCOUNTER → 2023-01-17 12:52 | Outpatient (BNVA) | payer MEDICARE, MEDICAID, SELFPAY | PROVIDERS: Visit Provider Surgery Vascular Surgery | DX: I83.12 Varicose veins of left lower extremity with inflammation (principal) | CPT/HCPCS: 99202 ==

== ENCOUNTER 2023-01-31 16:11 | Outpatient (REF) | payer MEDICARE, MEDICAID, SELFPAY ==
--- NOTE | ~2023-01-31 | CT_ITS ---
EXAMINATION: CT CHEST WITHOUT CONTRAST CLINICAL INFORMATION: Other nonspecific abnormal finding of lung field COMPARISON: Previous chest CT most recent June 2022 TECHNIQUE: Multidetector volumetric CT imaging of the chest was done. Axial MIP volume rendering provided. Sagittal and coronal reformatted images were obtained. This CT examination was performed using dose optimization techniques as appropriate, variously including the following: *Automated exposure control *Adjustment of mA and/or kV according to patient size (this includes techniques or standardized protocols for targeted exams where dose is matched to indication/reason for exam; i.e. extremities or head) *Use of iterative reconstruction technique DLP: 254 mGy-cm FINDINGS: LUNGS: There is subsegmental atelectasis or small at the right lung base in the right middle and lower lobe and elevated right hemidiaphragm. This is decreased compared to previous exam. There is new subsegmental atelectasis in the inferior segment of the lingula. The lungs are otherwise clear. There is evidence of mild paraseptal emphysema. There are several small calcified left upper lobe nodules probably representing calcified granulomas that are stable. Minimal increased peribronchial attenuation in the left upper lobe for example axial image 171 series 7 suggestive of mild airways disease. Square-shaped 6 mm groundglass opacity posterior segment of the right upper lobe adjacent to the major fissure axial image 190 series 5 that is new. MEDIASTINUM: Upper normal heart size. No pericardial effusion. Upper normal-size thoracic aorta. No enlarged hilar or mediastinal lymph nodes. CORONARY ARTERY CALCIFICATION: Mild PLEURA: There is no pleural effusion. No pleural mass or thickening. AXILLA: No lymphadenopathy. UPPER ABDOMEN: Cirrhotic-appearing liver. Low-attenuation lesion in the posterior right lobe of the liver with a focus of calcification. Prominent gallbladder. Right renal cysts. Stable low-attenuation 1 cm right adrenal nodule. OSSEOUS STRUCTURES: Increased thoracic kyphosis and old T3 and T4 vertebral body compression fractures similar to previous exam. Bilateral rib fractures. CT/CT chest wo IV con IMPRESSION: 1. Interval decrease in subsegmental atelectasis or small infiltrates in the right middle and lower lobes adjacent to the elevated right hemidiaphragm. New subsegmental atelectasis in the inferior segment of the lingula. New 6 mm groundglass opacity in the posterior segment of the right upper lobe adjacent to the major fissure. Mild paraseptal emphysema. Mild coronary artery calcification. Stable abdominal findings. Fleischner guidelines were followed.
== END 2023-01-31 16:12 | disposition home or self-care (01) ==
LOC: HO.CT 16:11
PROVIDERS: Visit Provider Internal Medicine Pulmonary Disease
DX: R91.8 Other nonspecific abnormal finding of lung field (principal)
CPT/HCPCS: 71250

== ENCOUNTER → 2023-02-28 13:09 | Outpatient (BNVA) | payer MEDICARE, MEDICAID, SELFPAY | PROVIDERS: PCP Nurse Practitioner Primary Care; Visit Provider Internal Medicine Pulmonary Disease | DX: J44.9 Chronic obstructive pulmonary disease, unspecified (principal); R91.8 Other nonspecific abnormal finding of lung field; R09.02 Hypoxemia; F17.210 Nicotine dependence, cigarettes, uncomplicated; Z86.19 Personal history of other infectious and parasitic diseases; Z79.899 Other long term (current) drug therapy | CPT/HCPCS: 99212 ==

== ENCOUNTER → 2023-03-21 14:02 | Outpatient (BNVA) | payer MEDICARE, MEDICAID, SELFPAY | PROVIDERS: PCP Nurse Practitioner Primary Care; Visit Provider Internal Medicine | DX: Q21.12 Patent foramen ovale (principal); I51.7 Cardiomegaly; I27.20 Pulmonary hypertension, unspecified | CPT/HCPCS: 93005; 99202 ==

== ENCOUNTER 2023-06-11 18:06 | Inpatient (IN) | payer MEDICARE, MEDICAID, SELFPAY ==
[2023-06-11] VITALS (8 sets, daily range): BP systolic 105–150; BP diastolic 61–90; PULSE 72–102; RESP 14–30; TEMP 36.4–36.7; O2SAT 91–97; BMI 35.5
--- NOTE | ~2023-06-11 | CT_ITS ---
EXAMINATION: CT CHEST, ABDOMEN AND PELVIS WITHOUT CONTRAST CLINICAL INFORMATION: Progressive dyspnea, cholecystostomy tube increasing pain COMPARISON: CT chest from 06/12/2023, CT abdomen from 06/11/2023 TECHNIQUE: Multidetector volumetric CT imaging of the chest, abdomen, and pelvis was performed after the administration of 100 mL of Omnipaque 300 intravenous contrast without immediate adverse reactions. Axial MIP volume rendering provided. Sagittal and coronal reformatted images were obtained. This CT examination was performed using dose optimization techniques as appropriate, variously including the following: *Automated exposure control *Adjustment of mA and/or kV according to patient size (this includes techniques or standardized protocols for targeted exams where dose is matched to indication/reason for exam; i.e. extremities or head) *Use of iterative reconstruction technique DLP: 2097 mGy-cm. FINDINGS: CHEST: LUNGS/PLEURA: Interval development of multifocal patchy and consolidative radiopacities throughout the bilateral lung orantes concerning for infectious/inflammatory etiology. Emphysematous changes. Small right-sided pleural effusion with subjacent atelectasis. Interval development of a few pleural-based nodular foci in the lateral aspect of the lingula the largest measuring up to 5 mm (series 7, image 224). Nodular focus versus atelectasis in the anterior medial aspect of the left upper lobe (series 7, image 162) measuring 5 mm. Stable 3 mm nodular focus in the anterior aspect of the left lower lobe (series 7, image 240). Remaining previously identified nodules are relatively stable. There is are patent. No pneumothorax. MEDIASTINUM: Heart is enlarged. Trace pericardial effusion. Coronary artery calcifications are noted. Borderline aneurysmal dilatation of the ascending aorta measuring 4.0 cm. Atherosclerotic calcifications of the aortic arch. Main pulmonary artery is not enlarged. A few mildly prominent though nonenlarged peritracheal, precarinal, and periaortic lymph nodes are noted. Visualized portions of the thyroid are unremarkable. AXILLA: No lymphadenopathy. ABDOMEN AND PELVIS: LIVER, GALLBLADDER, AND BILIARY TREE: Liver demonstrates a nodular contour with heterogeneous parenchyma suggesting cirrhotic morphology. Redemonstration of a mass involving the posterior medial aspect of the right hepatic lobe, incompletely evaluated without contrast. Punctate calcifications noted throughout the hepatic parenchyma. No biliary ductal dilatation is present. Interval placement of a percutaneous transhepatic drainage catheter appropriately pigtailed within the intraluminal gallbladder. PANCREAS: Atrophy with fatty infiltration SPLEEN: Is enlarged measuring 18.0 cm. ADRENAL GLANDS: Unremarkable. KIDNEYS AND URETERS: Bilateral renal cystic foci, simple appearing, not requiring follow-up. Nonobstructive calculus in the left renal upper pole measuring 1 mm without hydronephrosis. No right-sided nephrolithiasis or hydronephrosis. BLADDER: Intraluminal urinary bladder Bojorquez catheter with dependent foci of air. GASTROINTESTINAL TRACT: Small to moderate hiatal hernia. The small and large bowel are unremarkable. The appendix is not definitively visualized. ABDOMINAL WALL: Anasarca. Small fat filled umbilical hernia. MESENTERY: Interval development of small to moderate amount of ascites throughout the abdomen and tracking into the pelvis. LYMPH NODES: A few mildly prominent mesenteric lymph nodes are noted, subcentimeter in size, not enlarged per size criteria and possibly reactive. VASCULAR: Unremarkable. PELVIC VISCERA: Unremarkable. OSSEOUS STRUCTURES: Osteopenia. Multilevel degenerative changes of the thoracolumbar lumbosacral spine. Chronic appearing bilateral rib fractures. CT/CT abdomen pelvis wo IV con IMPRESSION: 1. Interval development of multifocal patchy and consolidative radiopacities throughout the bilateral lung orantes concerning for infectious/inflammatory etiology. 2. Small right-sided pleural effusion with subjacent atelectasis. 3. Interval development of a few pleural-based nodular foci in the lateral aspect of the lingula the largest measuring up to 5 mm. Nodular focus versus atelectasis in the anterior medial aspect of the left upper lobe measuring 5 mm. Remaining previously identified nodules are relatively stable. Follow up as per Fleischner criteria. 4. Borderline aneurysmal dilatation of the ascending aorta measuring 4.0 cm. 5. Liver demonstrates a nodular contour with heterogeneous parenchyma suggesting cirrhotic morphology. Redemonstration of a mass involving the posterior medial aspect of the right hepatic lobe, incompletely evaluated without contrast. 6. Interval placement of a percutaneous transhepatic drainage catheter appropriately pigtailed within the intraluminal gallbladder. 7. Splenomegaly measuring 18.0 cm. 8. Anasarca 9. Interval development of small to moderate amount of ascites throughout the abdomen and tracking into the pelvis. 10. A few mildly prominent mesenteric lymph nodes are noted, subcentimeter in size, not enlarged per size criteria and possibly reactive. 11. Osteopenia. Various management parameters for solitary pulmonary nodules are in the literature. According to the Fleischner Society, recommendations for pulmonary nodules are as follows: According to the UPDATED 2017 Fleischner Society recommendations, the advised follow-up imaging for solid nodules < 6 mm is: LOW RISK PATIENT: No routine follow-up. HIGH RISK PATIENT: Optional CT at 12 months.
--- NOTE | ~2023-06-11 | US_ITS ---
EXAMINATION: US ABDOMEN LIMITED CLINICAL INFORMATION: Abdominal pain. History of hepatocellular carcinoma. COMPARISON: CT abdomen earlier today. TECHNIQUE: Real-time imaging of the right upper quadrant abdominal viscera. FINDINGS: PANCREAS: Could not be assessed secondary to overlying bowel gas LIVER: Liver contour is lobular . Parenchymal echogenicity is heterogeneous and coarse. There is a 2.6 x 2.9 x 3.1 cm mass in the right lobe of the liver. 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 There is no intrahepatic biliary duct dilatation seen. GALLBLADDER: The gallbladder is distended with a thickened wall measuring 0.7 cm. Thick sludge is present within the gallbladder. Multiple calcified gallstones that were seen at the gallbladder fundus are not visualized on this ultrasound exam. The patient experienced pain over the gallbladder but as well, more diffusely. COMMON BILE DUCT: Normal in size measuring 0.5 cm in diameter. RIGHT KIDNEY: No hydronephrosis. No renal calculi or focal parenchymal lesions. The kidney measures 10.6 cm in maximum dimension. Multiple benign Bosniak class I renal cysts are noted which require no additional imaging or follow-up. No solid renal masses are seen. FREE FLUID: None. US/US abdomen limited IMPRESSION: 1. Abnormal liver with a known mass in the right lobe of the liver with no thrombosed portal vein. 2. The gallbladder is distended with a thickened wall and sludge. Known fundal small stones seen on the CT scan earlier today are not visualized on US.
--- NOTE | ~2023-06-11 | XR_ITS ---
EXAMINATION: XR chest 1V CLINICAL INFORMATION: Reason for Exam ETT/OGT placement COMPARISON: Prior study 06/12/2023 TECHNIQUE: XR chest 1V Tubes and lines: Endotracheal tube tip is at the tracheal bifurcation heading toward the right main bronchus, needs to be pulled back by approximately 3 cm for optimal positioning. There is right IJ central line catheter tip projecting over the right atrium. Gastric tube passing below the diaphragm into the stomach. Lungs and pleura: Diminished lung volume, there is pulmonary vascular congestion, opacification at right lung base possibly infiltrate atelectasis and/or subpulmonic pleural effusion. Heart and mediastinum: Cardiac silhouette is enlarged, this is exaggerated by AP technique unchanged.. Bones/soft tissue: Skeletal structures included are normal for patient's age. XR/XR chest 1V IMPRESSION: - Endotracheal tube tip is at the tracheal bifurcation heading toward the right main bronchus, NEEDS TO BE PULLED BACK BY APPROXIMATELY 3 CM for optimal positioning. - Gastric tube passing below the diaphragm into the stomach. - Right IJ central line catheter tip projecting over the right atrium. - Diminished lung volume. - Pulmonary vascular congestion. - Opacity at right lung base possibly subpulmonic pleural effusion and/or infiltrate. (Referring physician staff is being called, by physician staff assistance, to be alerted of the above critical findings and recommendations.) Tomás Garcia 06/15/2023 2:29 PM
--- NOTE | ~2023-06-11 | CT_ITS ---
EXAMINATION: CT ABDOMEN AND PELVIS WITHOUT CONTRAST CLINICAL INFORMATION: Abdominal pain. History of hepatocellular cancer. COMPARISON: MRI performed 09/20/2022 TECHNIQUE: Multidetector volumetric imaging was performed from the superior aspect of the liver through the pubic symphysis. Sagittal and coronal reformatted images were obtained on the technologist's workstation. This CT examination was performed using dose optimization techniques as appropriate, variously including the following: *Automated exposure control. *Adjustment of mA and/or kV according to patient size (this includes techniques or standardized protocols for targeted exams where dose is matched to indication/reason for exam; i.e. extremities or head). *Use of iterative reconstruction technique. DLP: 1392 mGy-cm FINDINGS: LUNG BASES: There is consolidation at the right lung base associated with elevation of the right hemidiaphragm. There is minimal atelectasis at the left lung base. There are a few lingular nodules measuring up to 8 mm. LIVER, GALLBLADDER, AND BILIARY TREE: The liver is heterogeneous and irregular/nodular in contour and the right lobe of the liver is small. There is a poorly defined 4.7 cm apparent mass medial right lobe the liver as seen on prior MRI. The gallbladder is mildly distended and mildly thickened. Multiple gallstones and likely sludge are noted within the gallbladder. PANCREAS: Unremarkable. SPLEEN: Unremarkable. ADRENAL GLANDS: Unremarkable. KIDNEYS AND URETERS: Numerous bilateral renal cysts are noted measuring up to 4.3 cm in the lower pole of the right kidney. There is a 1 mm nonobstructing calculus upper pole left kidney. There is no hydronephrosis. BLADDER: Unremarkable. GASTROINTESTINAL TRACT: The small and large bowel are unremarkable. The appendix is unremarkable. ABDOMINAL WALL: No significant hernia is appreciated. There is mild soft tissue anasarca. LYMPH NODES: Normal. VASCULAR: Unremarkable. FLUID: There is mild ascites within the abdomen and pelvis. PELVIC VISCERA: Unremarkable. OSSEOUS STRUCTURES: There is thoracolumbar disc degenerative change. CT/CT abdomen pelvis wo IV con IMPRESSION: 1. Cirrhotic liver with mild ascites and soft tissue anasarca. 2. There appears to be a 4.7 cm mass medial right lobe the liver as seen on prior MRI. 3. Distended mildly thickened gallbladder containing gallstones and apparent sludge. Correlation for significance is needed. Consider ultrasound assessment. 4. Elevation of the right hemidiaphragm with consolidation at the right lung base suggesting atelectasis and/or infiltrate. 5. 1 mm nonobstructing left renal calculus. 6. Lingular nodules measuring up to 8 mm. Fleischner guidelines were followed.
--- NOTE | ~2023-06-11 | CT_ITS ---
PROCEDURE: CT GUIDED ABSCESS DRAINAGE CLINICAL INFORMATION: Acute cholecystitis. COMPARISON: 06/11/2023. TECHNIQUE: CT fluoroscopic-guided cholecystostomy tube placement. This CT examination was performed using dose optimization techniques as appropriate, variously including the following: *Automated exposure control. *Adjustment of mA and/or kV according to patient size (this includes techniques or standardized protocols for targeted exams where dose is matched to indication/reason for exam; i.e. extremities or head). *Use of iterative reconstruction technique. DLP: 623 mGy-cm. FINDINGS: Informed consent was obtained from the patient prior to the procedure. During this process, the procedure and potential alternatives were explained, along with the intended outcome and benefits. The risks of the procedure, as well as the risk of not doing the procedure, were discussed. The patient was given the opportunity to ask questions regarding the procedure and appeared competent to make medical decisions. A signed consent form which documents this discussion was placed in the medical record. Using sterile technique and CT fluoroscopic guidance from an anterolateral approach, a 5-Chinese Yueh needle was directed into the gallbladder. A sample of bile was obtained for culture. There is noted to be debris within the bile. Guidewire was coiled within the gallbladder and following fascial dilatation, an 8.5-Chinese drainage catheter was placed with cope loop formed. The catheter was then sutured in place and StatLock applied. A total of 100 mL of bile was removed and catheter was placed to Caleb-Major bulb drainage. CT/CT guided drainage IMPRESSION: Placement of 8.5-Chinese cholecystostomy tube.
--- NOTE | ~2023-06-11 | XR_ITS ---
EXAMINATION: XR CHEST CLINICAL INFORMATION: CHF COMPARISON: Chest radiograph 08/16/2020 TECHNIQUE: Frontal view of the chest was obtained. FINDINGS: Lungs are hypoventilated. There is bibasilar atelectasis present. Small right pleural effusion cannot be excluded. Heart size borderline. Given the degree of hypoventilation, CHF does not appear to be present. There is bibasilar atelectasis, right greater than left. XR/XR chest 1V IMPRESSION: Hypoinflated lungs with bibasilar atelectasis and possible small right pleural effusion. No convincing evidence of CHF or pulmonary edema.
--- NOTE | ~2023-06-11 | CT_ITS ---
EXAMINATION: CT CHEST WITHOUT CONTRAST CLINICAL INFORMATION: Dyspnea. COMPARISON: 01/31/2023 TECHNIQUE: Multidetector volumetric CT imaging of the chest was done. Axial MIP volume rendering provided. Sagittal and coronal reformatted images were obtained. This CT examination was performed using dose optimization techniques as appropriate, variously including the following: *Automated exposure control *Adjustment of mA and/or kV according to patient size (this includes techniques or standardized protocols for targeted exams where dose is matched to indication/reason for exam; i.e. extremities or head) *Use of iterative reconstruction technique DLP: 346.10 mGy-cm FINDINGS: VOYAGE MANAGEMENT SYSTEM OPERATOR: The lung volumes are low. There is an apparent right lung base opacity. LUNGS: There is right lower lobe consolidation with some air bronchogram formation associated with elevation of the right hemidiaphragm. There is a 4.5 mm lingular nodule. There is a 3 mm left lower lobe nodule. MEDIASTINUM: The mediastinum is normal. CORONARY ARTERY CALCIFICATION: None visualized on this study. PLEURA: There is no pleural effusion. No pleural mass or thickening. AXILLA: No lymphadenopathy. UPPER ABDOMEN: The liver is heterogeneous and irregular in contour. A cholecystostomy tube is noted in place. There is a small amount of upper abdominal ascites. There is a 2.6 cm cyst mid to upper pole right kidney and a 1.6 cm cyst upper pole right kidney. OSSEOUS STRUCTURES: There are multiple old bilateral rib fractures. CT/CT chest wo IV con IMPRESSION: Consolidation at the right lung base with some air bronchogram formation possibly atelectasis/infiltrate. There is associated elevation of the right hemidiaphragm. 4.5 mm lingular nodule and 3 mm left lung base nodule. Per the 2017 revised Fleischner Society guidelines, in low-risk patients no routine follow up is necessarily required. In patients at high-risk for pulmonary neoplasm, recommend consideration of followup CT at 12 months to demonstrate nodule stability. Cirrhotic liver with mild upper abdominal ascites. Cholecystostomy tube extends into the gallbladder. Fleischner guidelines were followed.
--- NOTE | 2023-06-11 18:29 | PC.NURSE ---
A & Ox3, BIBA for c/o SOB and RUQ pain of 10/10 that radiates to the right shoulder. Hx of COPD and cirrhosis. On 2L NC at baseline,Pt placed on 3L in ED d/t O2 sat of 88%, pt currently sating 90-94%. Abdomen is distended. Skin appearance is jaundiced. +3 non pitting edema BLE.
--- NOTE | 2023-06-11 18:45 | ECG_ITS ---
Test Reason : dyspnea Blood Pressure : / mmHG Vent. Rate : 077 BPM Atrial Rate : 077 BPM P-R Int : 132 ms QRS Dur : 090 ms QT Int : 390 ms P-R-T Axes : 038 -23 047 degrees QTc Int : 441 ms Sinus rhythm with Premature atrial complexes Minimal voltage criteria for LVH, may be normal variant ( R in aVL ) Borderline ECG When compared with ECG of 10-AUG-2020 18:56, Premature atrial complexes are now Present Criteria for Septal infarct are no longer Present Referred By: Roxanna Kong Electronically Signed By:CARMELO JEAN
[2023-06-11] MEDS: 0.9 % Sodium Chloride 1,000 ML 999 ML IVCONT ×3 (19:09→21:42)
[2023-06-11 19:23] LABS: Basophils Absolute Auto 0.1 X10*3/uL (0.0-0.2); Basophils Percent Auto 0.3 % (0-2); Eosinophils Percent Auto 0.1 % (0-4); Hematocrit 35.3 % (42.0-52.0); Hemoglobin 12.4 g/dl (14.0-18.0); Imm Gran Abs Auto 0.22 X10*3/uL (0.00-0.03); Imm Gran Pct Auto 1.5 % (0.0-0.4); Lymphocytes Absolute Auto 0.4 X10*3/uL (1.2-4.9); MANUAL DIFF FLAG SCAN; Mean Corpuscular HGB Conc 35.1 g/dl (31.0-36.0); Mean Corpuscular Hemoglobin 34.2 pg (27.0-33.0); Mean Corpuscular Volume 97.2 fL (80.0-98.0); Mean Platelet Volume 12.4 fL (9.4-12.4); Monocytes Absolute Auto 0.7 X10*3/uL (0.1-1.2); Neutrophils Absolute Auto 12.9 x10*3/uL (2.0-8.3); Neutrophils Percent Auto 90.1 % (45-73); Platelet Count 127 X10*3/uL (160-400); Red Blood Count 3.63 X10*6/uL (4.60-5.80); Red Cell Distribution Width 17.7 % (11.0-16.0); SCAN SMEAR FLAG 1; White Blood Count 14.4 X10*3/uL (4.8-10.8)
[2023-06-11 19:26] LABS: INTERNATIONAL NORM RATIO 1.3 (0.9-1.1); Prothrombin Time 15.4 SEC (11.1-13.3)
[2023-06-11 19:31] LABS: Ammonia 37 umol/L (13-55)
[2023-06-11 19:34] LABS: Lactic Acid 1.7 mmol/L (0.5-2.0)
[2023-06-11 19:42] LABS: Alanine Aminotransferase 54 U/L (0-40); Albumin Level 2.4 g/dL (3.5-5.0); Alkaline Phosphatase 387 U/L (39-117); Anion Gap 14 (12-20); Aspartate Amino Transferase 177 U/L (5-37); Bilirubin Direct 4.5 mg/dL (0.0-0.5); Bilirubin Total 5.9 mg/dL (0.0-1.0); Blood Urea Nitrogen 52 mg/dL (9-16); Calcium 9.1 mg/dL (8.4-10.2); Carbon Dioxide 26 mmol/L (22-29); Chloride 96 mmol/L (96-108); Creatinine Clr Calc Pharmacy 41.8; Estimated Glomerular Filt Rate 34; Glucose Random 85 mg/dL (60-115); Lipase 29 U/L (8-78); Magnesium 2.4 mg/dL (1.6-2.6); Potassium 4.7 mmol/L (3.3-5.1); Sodium 131 mmol/L (135-145)
[2023-06-11 19:49] LABS: SLIDE REVIEW VERIFIED
[2023-06-11 19:54] LABS: Ethanol 11 mg/dL
[2023-06-11 20:00] LABS: TSH reflex Free T4 2.51 uIU/mL (0.32-4.0)
--- NOTE | 2023-06-11 20:33 | PC.NURSE ---
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 Family members at bedside reports increased weakness, unable to stand with numbness in bilateral legs, cant keep any food down reports N/V, and D a few days ago. IV line established in Right wrist, labs collected and sent to lab, fluids infused per MAR. Pt reports 2L via nasal cannula at baseline, pt appeared to have work of breathing but denies SOB, lung sounds clear, SpO2 96% on 2L. Pt reports last BM 2 days ago, abd distended and firm to touch, positive bowel sounds x4. Pt appears jaundice, yellow sclera, discoloration noted to bilateral legs, with pitting edema. Pt awaiting CT scan results. VSS
--- NOTE | 2023-06-11 21:21 | ED.GENADULT ---
HPI - General Adult General Chief complaint: Dyspnea Stated complaint: URQ PAIN HX LIVER CA Time Seen by Provider: 06/11/23 18:15 Source: patient and EMS Mode of arrival: EMS Limitations: no limitations History of Present Illness HPI narrative: Patient comes to the emergency room complaining of vomiting for 5 days. Patient states that he feels very weak. Also, patient complaining of chronic right upper quadrant pain but the pain is worse than usual. Patient is known to have hepatocellular carcinoma. Patient denies diarrhea, no fever or chills. According to the patient's daughters were at bedside, patient gets infusion treatments for cancer once a month, they do not know exactly when he had his last treatment, it was sometime this month. Related Data Home Medications Medication Instructions Recorded Confirmed albuterol sulfate 90 mcg/actuation 90 mcg inhalation DIRECTED 09/21/20 03/21/23 aerosol inhaler clonidine HCl 0.1 mg tablet 0.1 mg PO DAILY 09/21/20 03/21/23 ipratropium 20 mcg-albuterol 100 2 puff inhalation DIRECTED 09/21/20 03/21/23 mcg/actuation mist for inhalation pregabalin 50 mg capsule 50 mg PO DAILY 09/21/20 03/21/23 amlodipine 10 mg tablet 10 mg PO DAILY 09/12/22 03/21/23 atorvastatin 20 mg tablet 20 mg PO DAILY 09/12/22 03/21/23 lisinopril 30 mg tablet 30 mg PO DAILY 09/12/22 03/21/23 cholecalciferol (vitamin D3) 50 50 mcg PO DAILY 10/04/22 03/21/23 mcg (2,000 unit) capsule (Vitamin D3) methadone 10 mg/mL oral concentrate 150 mg PO DAILY 10/09/22 03/21/23 apixaban 5 mg tablet (Eliquis) 5 mg PO 03/21/23 03/21/23 Previous Rx's Medication Instructions Recorded theophylline 400 mg 400 mg PO QPM #30 tabs 12/20/22 tablet,extended release 24 hr Trelegy Ellipta 200 mcg-62.5 1 ea inhalation DAILY #60 ea 01/14/23 mcg-25 mcg powder for inhalation ([id number]-bkozwzka) nadolol 20 mg tablet 20 mg PO QPM #90 tabs 03/19/23 pantoprazole 40 mg tablet,delayed 40 mg PO QAM #30 tabs 04/19/23 release Allergies Allergy/AdvReac Type Severity Reaction Status Date / Time Gadolinium-Containing Allergy Mild VOMITING Verified 06/11/23 18:37 Contrast Medi [Gadolinium-Containing Contrast] Sulfa (Sulfonamide Allergy Unknown RASH Verified 06/11/23 18:37 Antibiotics) [SULFA (SULFONAMIDE ANTIBIOTICS)] temazepam [Restoril] Allergy Unknown Hallucinations, Verified 06/11/23 18:37 amnesia Review of Systems Review of Systems: Constitutional : No Weight loss, No Fever, No Chills, No Night Sweats, complaining of fatigue, generalized malaise ENT/Mouth : No Hearing loss, No Ear Pain, No Nasal Congestion, No Sinus Pain, No Hoarseness, No sore throat, No Rhinorrhea, No Swallowing Difficulty Eyes: No Eye Pain, No Swelling, No Redness, No Foreign Body, No Discharge, No Vision Changes Cardiovascular : No Chest Pain, No SOB, No Dyspnea on Exertion, No Orthopnea, No Edema, No Palpitations Respiratory : No Cough, No Sputum, No Wheezing, No Smoke Exposure, No Dyspnea Gastrointestinal : Complaining of nausea and vomiting for 5 days, complaining of no p.o. tolerance. No Diarrhea, No Constipation, complaining of acute on chronic right upper quadrant pain, no melena, no red blood per rectum Genitourinary : no irregular bleeding, No Dysuria, No Urinary Frequency, No Hematuria, No Urinary Incontinence, No Urgency, No Flank Pain, No Urinary Flow Changes, No Hesitancy Musculoskeletal : No joint pain, No Myalgias, No Joint Swelling Skin : No Skin Lesions, No rash Neuro : No Weakness, No Numbness, No Paresthesias, No Loss of Consciousness, No Dizziness, No Headache Psych : No Anxiety/Panic, No Depression, No SI/HI/AH/VH, No Social Issues, Heme/Lymph: No Bruising, No Bleeding,No Lymphadenopathy Endocrine : No Polyuria, No Polydipsia, No Temperature Intolerance [facility] Past Medical History Medical History Hepatitis C History of narcotic addiction Hypertension Hypertension Liver cancer Supplemental oxygen dependent Thigh hematoma Tuberculosis Surgical History H/O colonoscopy H/O hemorrhoidectomy History of esophagogastroduodenoscopy (EGD) Social History Social History (Updated 03/21/23 @ 14:19 by Iliana Wilson) Household Members: Family Housing: Apartment Are you a primary menagerie caretaker to a significant other at home: No Do you presently have visiting nurse or other home services: No Alcohol intake: never Patient Tobacco Use Status: Current everyday Tobacco user Tobacco use type: Cigarette Cigarette Packs Per Day: 1 Cigarettes Per Day: 10.0 Years Smoked: 48 Smoked in Last 30 Days: Yes Use of substances other than those prescribed or required for medical reasons: No Substance Use Type: Marijuana Advance Directives: No Advance Directives Information Provided: No service: Yes ([employer]) Current occupational status: disabled Physical Exam ED Vital Signs: Vital Signs - 24 hr 06/11/23 18:15 06/11/23 19:17 06/11/23 20:50 Temperature 97.9 F 97.8 F 97.5 F Pulse Rate 77 73 81 Respiratory Rate 20 20 14 Blood Pressure 119/75 105/72 107/79 Pulse Oximetry 94 96 94 Oxygen Delivery Method Nasal Cannula Nasal Cannula Nasal Cannula Oxygen Flow Rate 2 2 06/11/23 22:08 Temperature 97.6 F Pulse Rate 94 Respiratory Rate 18 Blood Pressure 150/90 H Pulse Oximetry 91 L Oxygen Delivery Method Nasal Cannula Oxygen Flow Rate 3 BMI result Body Mass Index 35.5 Const Other: Appearance: Alert. Oriented X3. Ill-appearing, weak Eyes: Pupils equal, round and reactive to light. ENT: Pharynx normal. Dry oral mucosa Neck: Normal inspection. Neck supple. No lymph nodes noted. No crepitus CVS: Normal heart rate and rhythm. Pulses normal. Normal S1 and S2 Respiratory: No respiratory distress. Breath sounds normal. No Wheezing. No rales Abdomen: Soft , mildly distended, tenderness to palpation diffusely but worse in the right upper quadrant Skin: Skin warm and dry. Jaundiced. Normal skin turgor. Extremities: No lower extremity edema. No Lacerations. No Rash Neuro: Oriented X 3. No motor deficit. No sensory deficit. Moving all extremities. No slurred speech. CN 2 through 12 grossly intact Psych: calm, cooperative Course Course Course Narrative: -of patient's labs and imaging pending Medications Administered Discontinued Medications Generic Name Dose Route Start Last Admin Trade Name Freq PRN Reason Stop Dose Admin Sodium Chloride 1,000 mls @ 999 mls/hr 06/11/23 18:45 06/11/23 20:10 Ns IVCONT 06/11/23 19:45 Infused .Q1H1M ONE Infusion Ceftriaxone Sodium 1 gm/ 50 mls @ 100 mls/hr 06/11/23 21:18 06/11/23 21:37 Sodium Chloride IV 06/11/23 21:47 100 mls/hr ONCE ONE Administration Sodium Chloride 1,000 mls @ 999 mls/hr 06/11/23 21:18 06/11/23 21:37 Ns IVCONT 06/11/23 22:18 999 mls/hr .Q1H1M ONE Administration Sodium Chloride 1,000 mls @ 999 mls/hr 06/11/23 21:29 06/11/23 21:42 Ns IVCONT 06/11/23 22:29 999 mls/hr .Q1H1M ONE Administration Medical Decision Making Medical Decision Making [facility] Narrative: -my interpretation of labs: Patient's sodium on the lower side, 131, baseline is 137. Creatinine elevated at 2.0, baseline 1.1. LFTs elevated, baseline total bilirubin 1.3, today 5.9, direct bilirubin 4.5. AST, ALT and alk-phos chronically elevated, lipase within normal limits. Patient has been unable to provide a urine sample, patient is dehydrated, patient has received couple of L of fluid, patient may need more. -at this time, 21:30, sepsis is not suspected, patient does not have a fever, normal blood pressure, normal lactic acid. -empirically, patient received ceftriaxone at 21:20 for elevated white blood cell count and right upper quadrant pain. Imaging results pending. Urinalysis pending, Patient receiving IV fluids based on ideal weight of 60 kg, patient is obese. -my interpretation of CT scan: Possible acute cholecystitis, patient will additionally be getting IV metronidazole and IV morphine -radiology report of CT scan: There is a 4.7 cm mass in the medial right lobe for liver was in prior on MRI. The gallbladder is mildly distended, containing gallstones and sludge. Patient is symptomatic, having significant right upper quadrant pain, ultrasound pending. -after ultrasound results, patient will need a surgical consult. The patient's medical history, unclear the patient is even a surgical candidate. To be discussed with surgery. Patient is adamant that he is a full code. Patient wants full treatment -records from [facility] pending. Patient's oncologist is Dr. Florence Grossman -patient has a UTI, already treated with ceftriaxone -patient's urine toxicology positive for fentanyl and marijuana -patient states that he is due for a breathing treatment, patient requesting a DuoNeb -22:40: Blood pressure 150/90, pulse 94, respirations 18. Sign-out given to Dr. Peguero, please follow-up with ultrasound and surgery consult Differential Diagnosis Differential Diagnoses: The differential diagnosis associated with the presentation includes (Portal vein thrombosis, acute cholecystitis, ascending cholangitis, worsening the hepatocellular carcinoma burden) Admission/Observation Consideration of admission/observation: Escalation of care including admission/observation considered Lab Data MDM Lab Attestation statement: I reviewed the patient's lab results. 06/11/23 19:03 06/11/23 19:03 Labs: Lab Results 06/11/23 06/11/23 06/11/23 Range/Units 19:03 19:03 19:03 WBC 14.4 H (4.8-10.8) X10*3/uL RBC 3.63 L (4.60-5.80) X10*6/uL Hgb 12.4 L (14.0-18.0) g/dl Hct 35.3 L (42.0-52.0) % MCV 97.2 (80.0-98.0) fL MCH 34.2 H (27.0-33.0) pg MCHC 35.1 (31.0-36.0) g/dl RDW 17.7 H (11.0-16.0) % Plt Count 127 L D (160-400) X10*3/uL MPV 12.4 (9.4-12.4) fL Immature Gran % (Auto) 1.5 H (0.0-0.4) % Neut % (Auto) 90.1 H (45-73) % Lymph % (Auto) 3.0 L (20-40) % [place] % (Auto) 5.0 (2-11) % Eos % (Auto) 0.1 (0-4) % Baso % (Auto) 0.3 (0-2) % Lymph # (Auto) 0.4 L (1.2-4.9) X10*3/uL [place] # (Auto) 0.7 (0.1-1.2) X10*3/uL Eos # (Auto) 0.0 (0.0-0.4) X10*3/uL Baso # (Auto) 0.1 (0.0-0.2) X10*3/uL Abs Immat Gran (auto) 0.22 H (0.00-0.03) X10*3/uL Absolute Neuts (auto) 12.9 H (2.0-8.3) x10*3/uL Absolute Nucleated RBC 0.000 (0.0-0.012) X10*3/uL Nucleated RBC % (auto) 0.0 (0.0-0.2) /100WBC Smear Tech's Comments VERIFIED PT 15.4 H (11.1-13.3) SEC INR 1.3 H (0.9-1.1) Sodium 131 L (135-145) mmol/L Potassium 4.7 (3.3-5.1) mmol/L Chloride 96 (96-108) mmol/L Carbon Dioxide 26 (22-29) mmol/L Anion Gap 14 (12-20) BUN 52 H (9-16) mg/dL Creatinine 2.00 H (0.5-1.4) mg/dL Estim Creat Clear Calc 41.8 Estimated GFR 34 Random Glucose 85 (60-115) mg/dL Lactic Acid (0.5-2.0) mmol/L Calcium 9.1 (8.4-10.2) mg/dL Magnesium 2.4 (1.6-2.6) mg/dL Total Bilirubin 5.9 H (0.0-1.0) mg/dL Direct Bilirubin 4.5 H (0.0-0.5) mg/dL AST 177 H (5-37) U/L ALT 54 H (0-40) U/L Alkaline Phosphatase 387 H (39-117) U/L Ammonia (13-55) umol/L Total Creatine Kinase 122 (38-174) U/L Total Protein 8.0 (6.5-8.0) g/dL Albumin 2.4 L (3.5-5.0) g/dL Lipase 29 (8-78) U/L TSH (0.32-4.0) uIU/mL Urine Color Urine Appearance Urine pH (5.0-9.0) Ur Specific [place] (1.005-1.025) Urine Protein (Neg-Trace) mg/dL Urine Glucose (UA) (Negative) mg/dL Urine Ketones (Negative) mg/dL Urine Blood (Negative) Urine Nitrite (Negative) Ur Leukocyte Esterase (Negative) Urine Opiates Screen (Not Detect) Urine Fentanyl Screen (Not Detect) Ur Barbiturates Screen (Not Detect) Ur Phencyclidine Scrn (Not Detect) Ur Amphetamines Screen (Not Detect) U Benzodiazepines Scrn (Not Detect) Urine Cocaine Screen (Not Detect) U Marijuana (THC) Screen (Not Detect) Ethyl Alcohol mg/dL 06/11/23 06/11/23 06/11/23 Range/Units 19:03 19:03 19:03 WBC (4.8-10.8) X10*3/uL RBC (4.60-5.80) X10*6/uL Hgb (14.0-18.0) g/dl Hct (42.0-52.0) % MCV (80.0-98.0) fL MCH (27.0-33.0) pg MCHC (31.0-36.0) g/dl RDW (11.0-16.0) % Plt Count (160-400) X10*3/uL MPV (9.4-12.4) fL Immature Gran % (Auto) (0.0-0.4) % Neut % (Auto) (45-73) % Lymph % (Auto) (20-40) % [place] % (Auto) (2-11) % Eos % (Auto) (0-4) % Baso % (Auto) (0-2) % Lymph # (Auto) (1.2-4.9) X10*3/uL [place] # (Auto) (0.1-1.2) X10*3/uL Eos # (Auto) (0.0-0.4) X10*3/uL Baso # (Auto) (0.0-0.2) X10*3/uL Abs Immat Gran (auto) (0.00-0.03) X10*3/uL Absolute Neuts (auto) (2.0-8.3) x10*3/uL Absolute Nucleated RBC (0.0-0.012) X10*3/uL Nucleated RBC % (auto) (0.0-0.2) /100WBC Smear Tech's Comments PT (11.1-13.3) SEC INR (0.9-1.1) Sodium (135-145) mmol/L Potassium (3.3-5.1) mmol/L Chloride (96-108) mmol/L Carbon Dioxide (22-29) mmol/L Anion Gap (12-20) BUN (9-16) mg/dL Creatinine (0.5-1.4) mg/dL Estim Creat Clear Calc Estimated GFR Random Glucose (60-115) mg/dL Lactic Acid 1.7 (0.5-2.0) mmol/L Calcium (8.4-10.2) mg/dL Magnesium (1.6-2.6) mg/dL Total Bilirubin (0.0-1.0) mg/dL Direct Bilirubin (0.0-0.5) mg/dL AST (5-37) U/L ALT (0-40) U/L Alkaline Phosphatase (39-117) U/L Ammonia 37 (13-55) umol/L Total Creatine Kinase (38-174) U/L Total Protein (6.5-8.0) g/dL Albumin (3.5-5.0) g/dL Lipase (8-78) U/L TSH 2.51 (0.32-4.0) uIU/mL Urine Color Urine Appearance Urine pH (5.0-9.0) Ur Specific [place] (1.005-1.025) Urine Protein (Neg-Trace) mg/dL Urine Glucose (UA) (Negative) mg/dL Urine Ketones (Negative) mg/dL Urine Blood (Negative) Urine Nitrite (Negative) Ur Leukocyte Esterase (Negative) Urine Opiates Screen (Not Detect) Urine Fentanyl Screen (Not Detect) Ur Barbiturates Screen (Not Detect) Ur Phencyclidine Scrn (Not Detect) Ur Amphetamines Screen (Not Detect) U Benzodiazepines Scrn (Not Detect) Urine Cocaine Screen (Not Detect) U Marijuana (THC) Screen (Not Detect) Ethyl Alcohol 11 mg/dL 06/11/23 06/11/23 Range/Units 22:01 22:01 WBC (4.8-10.8) X10*3/uL RBC (4.60-5.80) X10*6/uL Hgb (14.0-18.0) g/dl Hct (42.0-52.0) % MCV (80.0-98.0) fL MCH (27.0-33.0) pg MCHC (31.0-36.0) g/dl RDW (11.0-16.0) % Plt Count (160-400) X10*3/uL MPV (9.4-12.4) fL Immature Gran % (Auto) (0.0-0.4) % Neut % (Auto) (45-73) % Lymph % (Auto) (20-40) % [place] % (Auto) (2-11) % Eos % (Auto) (0-4) % Baso % (Auto) (0-2) % Lymph # (Auto) (1.2-4.9) X10*3/uL [place] # (Auto) (0.1-1.2) X10*3/uL Eos # (Auto) (0.0-0.4) X10*3/uL Baso # (Auto) (0.0-0.2) X10*3/uL Abs Immat Gran (auto) (0.00-0.03) X10*3/uL Absolute Neuts (auto) (2.0-8.3) x10*3/uL Absolute Nucleated RBC (0.0-0.012) X10*3/uL Nucleated RBC % (auto) (0.0-0.2) /100WBC Smear Tech's Comments PT (11.1-13.3) SEC INR (0.9-1.1) Sodium (135-145) mmol/L Potassium (3.3-5.1) mmol/L Chloride (96-108) mmol/L Carbon Dioxide (22-29) mmol/L Anion Gap (12-20) BUN (9-16) mg/dL Creatinine (0.5-1.4) mg/dL Estim Creat Clear Calc Estimated GFR Random Glucose (60-115) mg/dL Lactic Acid (0.5-2.0) mmol/L Calcium (8.4-10.2) mg/dL Magnesium (1.6-2.6) mg/dL Total Bilirubin (0.0-1.0) mg/dL Direct Bilirubin (0.0-0.5) mg/dL AST (5-37) U/L ALT (0-40) U/L Alkaline Phosphatase (39-117) U/L Ammonia (13-55) umol/L Total Creatine Kinase (38-174) U/L Total Protein (6.5-8.0) g/dL Albumin (3.5-5.0) g/dL Lipase (8-78) U/L TSH (0.32-4.0) uIU/mL Urine Color Dark Yellow Urine Appearance Cloudy Urine pH 5.5 (5.0-9.0) Ur Specific [place] 1.020 (1.005-1.025) Urine Protein 30 (1+) H (Neg-Trace) mg/dL Urine Glucose (UA) Negative (Negative) mg/dL Urine Ketones Negative (Negative) mg/dL Urine Blood Negative (Negative) Urine Nitrite Positive H (Negative) Ur Leukocyte Esterase Small (1+) H (Negative) Urine Opiates Screen Not Detected (Not Detect) Urine Fentanyl Screen POSITIVE H (Not Detect) Ur Barbiturates Screen Not Detected (Not Detect) Ur Phencyclidine Scrn Not Detected (Not Detect) Ur Amphetamines Screen Not Detected (Not Detect) U Benzodiazepines Scrn Not Detected (Not Detect) Urine Cocaine Screen Not Detected (Not Detect) U Marijuana (THC) Screen POSITIVE H (Not Detect) Ethyl Alcohol mg/dL Radiology Impression Discussion of test interpretation with radiology: I have reviewed the radiologist's reading. Radiologist Impression: FINDINGS: LUNG BASES: There is consolidation at the right lung base associated with elevation of the right hemidiaphragm. There is minimal atelectasis at the left lung base. There are a few lingular nodules measuring up to 8 mm. LIVER, GALLBLADDER, AND BILIARY TREE: The liver is heterogeneous and irregular/nodular in contour and the right lobe of the liver is small. There is a poorly defined 4.7 cm apparent mass medial right lobe the liver as seen on prior MRI. The gallbladder is mildly distended and mildly thickened. Multiple gallstones and likely sludge are noted within the gallbladder.? PANCREAS: Unremarkable.? SPLEEN: Unremarkable.? ADRENAL GLANDS: Unremarkable.? KIDNEYS AND URETERS: Numerous bilateral renal cysts are noted measuring up to 4.3 cm in? the lower pole of the right kidney. There is a 1 mm nonobstructing calculus upper pole left kidney. There is no hydronephrosis.? BLADDER: Unremarkable.? GASTROINTESTINAL TRACT: The small and large bowel are unremarkable. The appendix is unremarkable.? ABDOMINAL WALL: No significant hernia is appreciated. There is mild soft tissue anasarca. LYMPH NODES: Normal. VASCULAR: Unremarkable. FLUID: There is mild ascites within the abdomen and pelvis. PELVIC VISCERA: Unremarkable.? OSSEOUS STRUCTURES: There is thoracolumbar disc degenerative change. CT/CT abdomen pelvis wo IV con IMPRESSION: 1. Cirrhotic liver with mild ascites and soft tissue anasarca. ? 2. There appears to be a 4.7 cm mass medial right lobe the liver as seen on prior MRI. ? 3. Distended mildly thickened gallbladder containing gallstones and apparent sludge. Correlation for significance is needed. Consider ultrasound assessment. ? 4. Elevation of the right hemidiaphragm with consolidation at the right lung base suggesting atelectasis and/or infiltrate. ? 5. 1 mm nonobstructing left renal calculus. ? 6. Lingular nodules measuring up to 8 mm. ? Fleischner guidelines were followed. Independent Historian Clinical information obtained from an independent historian. History obtained from or confirmed by: Other (Daughters) External Record Review External record reviewed: Prior outpatient labs Patient's LFTs were not elevated on his prior check in December of 2019 Discharge Plan Discharge Clinical Impression: Acute hyponatremia, Acute kidney injury, Acute UTI, Elevated LFTs Patient Disposition: Still a Patient Prescriptions: No Action theophylline 400 mg tablet extended release 24 hr 400 mg PO QPM Qty: 30 6RF Trelegy Ellipta 200-62.5-25 mcg blister with device 1 ea inhalation DAILY Qty: 60 6RF nadolol 20 mg tablet 20 mg PO QPM Qty: 90 0RF pantoprazole 40 mg tablet,delayed release (DR/EC) 40 mg PO QAM Qty: 30 2RF cholecalciferol (vitamin D3) [Vitamin D3] 50 mcg (2,000 unit) capsule 50 mcg PO DAILY clonidine HCl 0.1 mg tablet 0.1 mg PO DAILY albuterol sulfate 90 mcg/actuation HFA aerosol inhaler 90 mcg inhalation DIRECTED Combivent Respimat 20-100 mcg/actuation mist 2 puff inhalation DIRECTED pregabalin 50 mg capsule 50 mg PO DAILY methadone 10 mg/mL concentrate 150 mg PO DAILY lisinopril 30 mg tablet 30 mg PO DAILY amlodipine 10 mg tablet 10 mg PO DAILY atorvastatin 20 mg tablet 20 mg PO DAILY Eliquis 5 mg tablet 5 mg PO
[2023-06-11] MEDS: cefTRIAXone sodium 1 GM in 0.9 % Sodium Chloride 50 ML IV (21:37)
[2023-06-11 22:21] LABS: Appearance Urine Cloudy; Color Urine Dark Yellow; Glucose Urine UA Negative (Negative); Leukocyte Esterase Urine Small (1+) (Negative); Nitrite Urine Positive (Negative); PH 5.5 (5.0-9.0); UMIC TRIGGER UACC YES; Urine Blood Negative (Negative); Urine Ketones Negative (Negative); Urine Protein 30 (1+) mg/dL (Neg-Trace)
[2023-06-11 22:31] LABS: Amphetamine Screen Urine Not Detected (Not Detect); Barbiturates, Urine Not Detected (Not Detect); Benzodiazepines Screen Urine Not Detected (Not Detect); Cannabinoid Screen Urine POSITIVE (Not Detect); Cocaine Screen Urine Not Detected (Not Detect); Fentanyl, urine POSITIVE (Not Detect); Opiate Screen Urine Not Detected (Not Detect); Phencyclidine Screen Urine Not Detected (Not Detect)
[2023-06-11] MEDS: Albuterol Sulfate 2.5 MG, Albuterol/Iprat 2.5/0.5MG 3 ML 3 ML INHALE (22:45)
--- NOTE | 2023-06-11 22:46 | PC.NURSE ---
Pt used urinal with assistance by daughter, pt appears to be struggling to breathe after repositioning in bed, tachypnic RR: 26, respiratory therapist at bedside, pt receiving breathing treatment at this time.
[2023-06-11] MEDS: Morphine Sulfate 4 MG/ML CARTRIDGE IVPUSH (22:57)
[2023-06-11] MEDS: metroNIDAZOLE/NS 500 MG/100 ML PIGGYBACK 100 MG IV (22:59)
--- NOTE | 2023-06-11 23:10 | PC.NURSE ---
Pt reports effectivenes to breathing treatment. Stating i just needed the air. Pt repositioned to sitting position, appears more comfortable at this time.
[2023-06-11 23:25] LABS: Bacteria Urine None Seen (None Seen); Granular Casts Urine Present; UACC Culture Trigger YES
[2023-06-12] VITALS (45 sets, daily range): BP systolic 82–125; BP diastolic 52–82; PULSE 60–88; RESP 12–27; TEMP 36–36.6; O2SAT 21–98; BMI 37.3
[2023-06-12 00:29] LABS: ABG Base Excess 1.3 mmol/L; ABG HCO3 27 mmol/L (22-26); ABG pCO2 50 mmHg (32-45); ABG pH 7.34 (7.35-7.45); ABG pO2 68 mmHg (83-108)
[2023-06-12 00:39] LABS: Anion Gap 14 (12-20); Blood Urea Nitrogen 51 mg/dL (9-16); Calcium 8.4 mg/dL (8.4-10.2); Carbon Dioxide 23 mmol/L (22-29); Chloride 101 mmol/L (96-108); Estimated Glomerular Filt Rate 42; Glucose Random 71 mg/dL (60-115); Potassium 4.4 mmol/L (3.3-5.1); Sodium 134 mmol/L (135-145)
[2023-06-12 00:43] LABS: Troponin-I High Sensitivity 13.7 ng/L (<3.5-35.0)
--- NOTE | 2023-06-12 00:53 | PC.NURSE ---
Pt continues to be tachypnic not speaking in full sentence, leaning against the side rail, on 3L NC, SpO2: 88%, provider Dr. Peguero notified. New orders given, respiratory therapist at bedside, pt placed on Bipap. Responding well to Bipap.
[2023-06-12 00:59] LABS: B Type Natriuretic Peptide 133 pg/mL (<100)
--- NOTE | 2023-06-12 01:36 | PC.NURSE ---
Pt desatting to 88% on Bipap, respiratory was called and had this rn increase Bipap's Fio2 to 50%. No improvement respiratory called again.
--- NOTE | 2023-06-12 02:02 | PC.NURSE ---
BP noted to be 82/55, Dr. Peguero notified, new order for fluids.
[2023-06-12] MEDS: 0.9 % Sodium Chloride 1,000 ML 999 ML IV (02:04)
[2023-06-12 02:23] LABS: Troponin-I High Sensitivity 19.6 ng/L (<3.5-35.0)
[2023-06-12] MEDS: Norepinephrine Bitartrate/D5W 8 MG/250 ML PLAST..BAG 9.36 MG IV (03:35)
--- NOTE | 2023-06-12 03:52 | PM.CCHP ---
History of Present Illness Date of Service: 06/12/23 Attending physician on admission: Prema Lyons Chief Complaint: Hypoxia ?Mr. Delgadillo is a 63-year-old male with past medical history of? hypertension, supplemental oxygen dependent, hepatitis-C, hepatocellular carcinoma, tuberculosis, narcotic addiction, and? sleep apnea without a CPAP use? who presented to the emergency room this evening with complaint of vomiting x5 days, weakness, and chronic right upper quadrant pain worse than usual. According to the patient's daughters, he gets infusion treatments for cancer once a month; they do not know exactly when he had his last treatment, it was sometime this month. On arrival to the ER, he had a temp of 97.9?, HR 77,? BP 119/75, ? RR 20, O2 sat 94% on 2L NC.? Laboratory data significant for? WBC 14.4, platelet count? 127, absolute neutrophil count 90.1, ? PT 15.4, INR 1.3,? sodium 131, BUN 52, creat? 2.0, Tbili? 5.9, Dbili? 4.5, AST 177, ALT 54,? alk-phos 387, BNP 133, albumin 2.4, lactic 1.7. Urinalysis? showed 1+ protein, positive Nitrite, 1+ leuk,? 6-10 rbc?s, 6-10 wbc?s,? 6-10 hyaline casts, granular casts present. ? The tox screen positive for fentanyl and marijuana. Imaging: CT/CT abdomen pelvis wo IV con IMPRESSION: 1. Cirrhotic liver with mild ascites and soft tissue anasarca. 2. There appears to be a 4.7 cm mass medial right lobe the liver as seen on prior MRI. 3. Distended mildly thickened gallbladder containing gallstones and apparent sludge. Correlation for significance is needed. Consider ultrasound assessment. 4. Elevation of the right hemidiaphragm with consolidation at the right lung base suggesting atelectasis and/or infiltrate. 5. 1 mm nonobstructing left renal calculus. 6. Lingular nodules measuring up to 8 mm. US/US abdomen limited IMPRESSION: 1.? Abnormal liver with a known mass in the right lobe of the liver with no thrombosed portal vein. 2.? The gallbladder is distended with a thickened wall and sludge. Known fundal small stones seen on the CT scan earlier today are not visualized on US. XR/XR chest 1V IMPRESSION: Hypoinflated lungs with bibasilar atelectasis and possible small right pleural effusion. No convincing evidence of CHF or pulmonary edema. ? ED course: During his stay in the ER, the patient became hypotensive and hypoxic. ? He was placed on BiPap, given a total of 4 L normal saline, ceftriaxone 1 g, metronidazole 500 mg,? and DuoNeb.? Review of Systems Cardiovascular: Cardiovascular: Reports dyspnea and Reports dyspnea on exertion Respiratory: Respiratory: Reports dyspnea and Reports dyspnea on exertion Gastrointestinal: Gastrointestinal: Reports abdominal pain Musculoskeletal: Musculoskeletal: Reports muscle weakness Hematologic/Lymphatic: Hematologic/Lymphatic: Reports as per HPI [facility] Past Medical History Medical History Hepatitis C History of narcotic addiction Hypertension Hypertension Liver cancer Supplemental oxygen dependent Thigh hematoma Tuberculosis Surgical History Surgical History H/O colonoscopy H/O hemorrhoidectomy History of esophagogastroduodenoscopy (EGD) Social History Social History (Updated 03/21/23 @ 14:19 by Iliana Wilson) Household Members: Family Housing: Apartment Are you a primary acute care physician to a significant other at home: No Do you presently have visiting nurse or other home services: No Alcohol intake: never Patient Tobacco Use Status: Current everyday Tobacco user Tobacco use type: Cigarette Cigarette Packs Per Day: 1 Cigarettes Per Day: 10.0 Years Smoked: 48 Smoked in Last 30 Days: Yes Use of substances other than those prescribed or required for medical reasons: No Substance Use Type: Marijuana Advance Directives: No Advance Directives Information Provided: No 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 Meds Allergies Allergy/AdvReac Type Severity Reaction Status Date / Time Gadolinium-Containing Allergy Mild VOMITING Verified 06/11/23 18:37 Contrast Medi [Gadolinium-Containing Contrast] Sulfa (Sulfonamide Allergy Unknown RASH Verified 06/11/23 18:37 Antibiotics) [SULFA (SULFONAMIDE ANTIBIOTICS)] temazepam [Restoril] Allergy Unknown Hallucinations, Verified 06/11/23 18:37 amnesia Active Medications: Current Medications Norepinephrine Bitartrate (Levophed) 8 mg in 250 mls @ 0 mls/hr IV .Q0M [facility]; Protocol Last Admin: 06/12/23 03:35 Dose: 0.05 mcg/kg/min, 9.36 mls/hr Home Medications Medication Instructions Recorded Confirmed Last Taken Type albuterol sulfate 90 mcg/actuation 90 mcg inhalation DIRECTED 09/21/20 03/21/23 Unknown History aerosol inhaler clonidine HCl 0.1 mg tablet 0.1 mg PO DAILY 09/21/20 03/21/23 11/08/22 History ipratropium 20 mcg-albuterol 100 2 puff inhalation DIRECTED 09/21/20 03/21/23 Unknown History mcg/actuation mist for inhalation pregabalin 50 mg capsule 50 mg PO DAILY 09/21/20 03/21/23 11/08/22 History amlodipine 10 mg tablet 10 mg PO DAILY 09/12/22 03/21/23 11/08/22 History atorvastatin 20 mg tablet 20 mg PO DAILY 09/12/22 03/21/23 Unknown History lisinopril 30 mg tablet 30 mg PO DAILY 09/12/22 03/21/23 Unknown History cholecalciferol (vitamin D3) 50 50 mcg PO DAILY 10/04/22 03/21/23 Unknown History mcg (2,000 unit) capsule (Vitamin D3) methadone 10 mg/mL oral concentrate 150 mg PO DAILY 10/09/22 03/21/23 11/08/22 History apixaban 5 mg tablet (Eliquis) 5 mg PO 03/21/23 03/21/23 Unknown History Physical Exam Vital Signs: Vital Signs: Last Vital Signs Temp 97.9 F 06/11/23 23:21 Pulse 70 06/12/23 03:35 Resp 14 06/12/23 03:30 BP 83/56 L 06/12/23 03:35 Pulse Ox 97 06/12/23 03:30 O2 Del Method BiPAP 06/12/23 03:30 O2 Flow Rate 3 06/11/23 23:07 FiO2 50 06/12/23 02:00 Oxygen Flow Rate 2 06/11/23 18:15 BMI result Body Mass Index 35.5 Const: General: alert and ill appearing Nutritional Appearance: obese Orientation/consciousness: patient oriented x3 (answering appropriately.) HEENT: Head: Yes normocephalic and Yes atraumatic General nose exam: Normal external nose present (Nares patent, septum midline, sinuses nontender bilaterally.) Mouth: Normal oral and palatal mucosa present (No thrush, tongue in midline, mucosa moist.) Throat: Yes other (No erythema, no exudate.) Eyes: Sclerae: scleral abnormal (icteric) bilateral Pupils: Equal, round and reactive pupils present Neck: Neck: Yes supple (no thyromegaly, trachea midline.) Carotids: normal carotid upstroke Resp: Auscultation: crackles on the right at the base Cardio: Jugular venous distension: no JVD Rate: regular rate Rhythm: regular rhythm Heart sounds: no gallops, no murmurs and no rubs Peripheral pulses: Peripheral pulses 2+ throughout GI: Inspection: Yes distended (firm) Palpation (GI): Tenderness to palpation present (GI) Auscultation: Hypoactive bowel sounds present Skin: General skin exam: jaundice Neuro: General: patient oriented x3 (answering appropriately.) Cranial nerves: Yes Equal, round and reactive pupils present Extrem: General: Yes full ROM and Yes capillary refill normal Right lower extremity: edema (increased pigmentation) Details: pitting and 1+ Left lower extremity: edema (increased pigmentation) Details: pitting and 1+ Psych: Affect: normal affect Attitude: cooperative Results Labs 06/11/23 19:03 06/12/23 00:16 Labs: Laboratory Results - last 24 hr 06/11/23 06/11/23 06/11/23 19:03 19:03 19:03 MCV 97.2 MCH 34.2 H MCHC 35.1 RDW 17.7 H Plt Count 127 L D MPV 12.4 Immature Gran % (Auto) 1.5 H Neut % (Auto) 90.1 H Lymph % (Auto) 3.0 L [place] % (Auto) 5.0 Eos % (Auto) 0.1 Baso % (Auto) 0.3 Lymph # (Auto) 0.4 L [place] # (Auto) 0.7 Eos # (Auto) 0.0 Baso # (Auto) 0.1 Abs Immat Gran (auto) 0.22 H Absolute Neuts (auto) 12.9 H Absolute Nucleated RBC 0.000 Nucleated RBC % (auto) 0.0 Smear Tech's Comments VERIFIED PT 15.4 H INR 1.3 H O2 Saturation ABG pH at Pt Temp ABG pCO2 at Pt Temp ABG pO2 at Pt Temp ABG HCO3 ABG Base Excess (Actual) Anion Gap 14 Estim Creat Clear Calc 41.8 Estimated GFR 34 Random Glucose 85 Lactic Acid Calcium 9.1 Magnesium 2.4 Total Bilirubin 5.9 H Direct Bilirubin 4.5 H AST 177 H ALT 54 H Alkaline Phosphatase 387 H Ammonia Total Creatine Kinase 122 B-Natriuretic Peptide Total Protein 8.0 Albumin 2.4 L Lipase 29 TSH Urine Color Urine Appearance Urine pH Ur Specific [place] Urine Protein Urine Glucose (UA) Urine Ketones Urine Blood Urine Nitrite Ur Leukocyte Esterase Urine RBC Urine WBC Ur Squamous Epith Cells Urine Bacteria Hyaline Casts Granular Casts Urine Opiates Screen Urine Fentanyl Screen Ur Barbiturates Screen Ur Phencyclidine Scrn Ur Amphetamines Screen U Benzodiazepines Scrn Urine Cocaine Screen U Marijuana (THC) Screen Ethyl Alcohol 06/11/23 06/11/23 06/11/23 19:03 19:03 19:03 MCV MCH MCHC RDW Plt Count MPV Immature Gran % (Auto) Neut % (Auto) Lymph % (Auto) [place] % (Auto) Eos % (Auto) Baso % (Auto) Lymph # (Auto) [place] # (Auto) Eos # (Auto) Baso # (Auto) Abs Immat Gran (auto) Absolute Neuts (auto) Absolute Nucleated RBC Nucleated RBC % (auto) Smear Tech's Comments PT INR O2 Saturation ABG pH at Pt Temp ABG pCO2 at Pt Temp ABG pO2 at Pt Temp ABG HCO3 ABG Base Excess (Actual) Anion Gap Estim Creat Clear Calc Estimated GFR Random Glucose Lactic Acid 1.7 Calcium Magnesium Total Bilirubin Direct Bilirubin AST ALT Alkaline Phosphatase Ammonia 37 Total Creatine Kinase B-Natriuretic Peptide Total Protein Albumin Lipase TSH 2.51 Urine Color Urine Appearance Urine pH Ur Specific [place] Urine Protein Urine Glucose (UA) Urine Ketones Urine Blood Urine Nitrite Ur Leukocyte Esterase Urine RBC Urine WBC Ur Squamous Epith Cells Urine Bacteria Hyaline Casts Granular Casts Urine Opiates Screen Urine Fentanyl Screen Ur Barbiturates Screen Ur Phencyclidine Scrn Ur Amphetamines Screen U Benzodiazepines Scrn Urine Cocaine Screen U Marijuana (THC) Screen Ethyl Alcohol 11 06/11/23 06/11/23 06/12/23 22:01 22:01 00:16 MCV MCH MCHC RDW Plt Count MPV Immature Gran % (Auto) Neut % (Auto) Lymph % (Auto) [place] % (Auto) Eos % (Auto) Baso % (Auto) Lymph # (Auto) [place] # (Auto) Eos # (Auto) Baso # (Auto) Abs Immat Gran (auto) Absolute Neuts (auto) Absolute Nucleated RBC Nucleated RBC % (auto) Smear Tech's Comments PT INR O2 Saturation ABG pH at Pt Temp ABG pCO2 at Pt Temp ABG pO2 at Pt Temp ABG HCO3 ABG Base Excess (Actual) Anion Gap 14 Estim Creat Clear Calc 50.0 Estimated GFR 42 Random Glucose 71 Lactic Acid Calcium 8.4 D Magnesium Total Bilirubin Direct Bilirubin AST ALT Alkaline Phosphatase Ammonia Total Creatine Kinase B-Natriuretic Peptide Total Protein Albumin Lipase TSH Urine Color Dark Yellow Urine Appearance Cloudy Urine pH 5.5 Ur Specific [place] 1.020 Urine Protein 30 (1+) H Urine Glucose (UA) Negative Urine Ketones Negative Urine Blood Negative Urine Nitrite Positive H Ur Leukocyte Esterase Small (1+) H Urine RBC 6-10 H Urine WBC 6-10 Ur Squamous Epith Cells 6-10 Urine Bacteria None Seen Hyaline Casts 6-10 Granular Casts Present Urine Opiates Screen Not Detected Urine Fentanyl Screen POSITIVE H Ur Barbiturates Screen Not Detected Ur Phencyclidine Scrn Not Detected Ur Amphetamines Screen Not Detected U Benzodiazepines Scrn Not Detected Urine Cocaine Screen Not Detected U Marijuana (THC) Screen POSITIVE H Ethyl Alcohol 06/12/23 06/12/23 00:16 00:24 MCV MCH MCHC RDW Plt Count MPV Immature Gran % (Auto) Neut % (Auto) Lymph % (Auto) [place] % (Auto) Eos % (Auto) Baso % (Auto) Lymph # (Auto) [place] # (Auto) Eos # (Auto) Baso # (Auto) Abs Immat Gran (auto) Absolute Neuts (auto) Absolute Nucleated RBC Nucleated RBC % (auto) Smear Tech's Comments PT INR O2 Saturation 88.0 ABG pH at Pt Temp 7.34 L ABG pCO2 at Pt Temp 50 H ABG pO2 at Pt Temp 68 L ABG HCO3 27 H ABG Base Excess (Actual) 1.3 Anion Gap Estim Creat Clear Calc Estimated GFR Random Glucose Lactic Acid Calcium Magnesium Total Bilirubin Direct Bilirubin AST ALT Alkaline Phosphatase Ammonia Total Creatine Kinase B-Natriuretic Peptide 133 H Total Protein Albumin Lipase TSH Urine Color Urine Appearance Urine pH Ur Specific [place] Urine Protein Urine Glucose (UA) Urine Ketones Urine Blood Urine Nitrite Ur Leukocyte Esterase Urine RBC Urine WBC Ur Squamous Epith Cells Urine Bacteria Hyaline Casts Granular Casts Urine Opiates Screen Urine Fentanyl Screen Ur Barbiturates Screen Ur Phencyclidine Scrn Ur Amphetamines Screen U Benzodiazepines Scrn Urine Cocaine Screen U Marijuana (THC) Screen Ethyl Alcohol Imaging Radiologist's Impressions: Impressions Abdomen/Pelvis CT 06/11/23 20:25 IMPRESSION: 1. Cirrhotic liver with mild ascites and soft tissue anasarca. 2. There appears to be a 4.7 cm mass medial right lobe the liver as seen on prior MRI. 3. Distended mildly thickened gallbladder containing gallstones and apparent sludge. Correlation for significance is needed. Consider ultrasound assessment. 4. Elevation of the right hemidiaphragm with consolidation at the right lung base suggesting atelectasis and/or infiltrate. 5. 1 mm nonobstructing left renal calculus. 6. Lingular nodules measuring up to 8 mm. Fleischner guidelines were followed. Abdomen Ultrasound 06/11/23 22:32 IMPRESSION: 1. Abnormal liver with a known mass in the right lobe of the liver with no thrombosed portal vein. 2. The gallbladder is distended with a thickened wall and sludge. Known fundal small stones seen on the CT scan earlier today are not visualized on US. Chest X-Ray 06/12/23 00:45 IMPRESSION: Hypoinflated lungs with bibasilar atelectasis and possible small right pleural effusion. No convincing evidence of CHF or pulmonary edema. Assessment and Plan (1) Hypoxemia: Status: Acute (2) Hypotension: Status: Acute (3) Dyspnea on exertion: Status: Acute (4) Acute UTI: Status: Acute (5) Acute kidney injury: Status: Acute (6) Elevated LFTs: Status: Acute (7) Epigastric pain: Status: Acute (8) Cirrhosis of liver: Status: Acute (9) COPD (chronic obstructive pulmonary disease): Status: Acute (10) Hepatocellular carcinoma: Status: Chronic (11) History of narcotic addiction: Status: Acute Plan Assessment 63-year-old male with past medical history of? hypertension, supplemental oxygen dependent, hepatitis-C, hepatocellular carcinoma, tuberculosis, narcotic addiction, and? sleep apnea admitted to ICU with UTI, hypoxia, NA, and acute cholecystitis. Plan Neuro: ? ? No acute issues Cardiac: ?EKG? with no ischemic changes.? Sepsis: elevated white count, NA, hypotension, worsening transaminitis. UTI or acute cholecystitis likely the source. Fluid resuscitated with approx 4L in ED. Will add pressor if needed.? Pulmonary: Hypoinflated lungs with bibasilar atelectasis and possible small right pleural effusion noted on x-ray. Continue NIVVP. Renal:? NA. Continue to check renal induces and urine output.?? Endo: ?no acute issues GI: Transaminitis, hepatocellular carcinoma, acute cholecystitis. Surgical consult placed. Continue to trend LFTs. ID: Severe sepsis likely due to UTI, acute cholecystitis. Volume resuscitated in the ER. Received ceftriaxone, metronidazole.? Blood cultures pending.? Continue antibiotics. Heme/Onc: ?Hepatocellular carcinoma.? Patient is treated at [facility]. Oncologist is Dr. Florence Grossman. Last treatment sometime this month per family. Pending records request. Psych: Substance abuse on methadone. Confirm dose with pharmacy in AM. Time Spent With Patient Time: Total time managing care of this patient today ____ minutes.
--- NOTE | 2023-06-12 03:53 | PC.NURSE ---
Levophed started per MAR, RN to RN report given to Alexandra, Pt will be transported to [facility], pt aware of plan.
[2023-06-12 04:51] LABS: ABG Refer to POC result
[2023-06-12 05:02] LABS: VBG Base Excess 0.5 mmol/L; VBG HCO3 25 mmol/L (22-26); VBG pCO2 39 mmHg; VBG pO2 67 mmHg
[2023-06-12] MEDS: Pantoprazole Sodium 40 MG/10 ML VIAL IVPUSH (05:31)
[2023-06-12 05:39] LABS: MANUAL DIFF FLAG NO
[2023-06-12 05:46] LABS: Basophils Absolute Auto 0.1 X10*3/uL (0.0-0.2); Basophils Percent Auto 0.4 % (0-2); Eosinophils Percent Auto 0.1 % (0-4); Hematocrit 33.7 % (42.0-52.0); Hemoglobin 11.9 g/dl (14.0-18.0); Imm Gran Abs Auto 0.24 X10*3/uL (0.00-0.03); Imm Gran Pct Auto 1.5 % (0.0-0.4); Lymphocytes Absolute Auto 0.5 X10*3/uL (1.2-4.9); Lymphocytes Percent Auto 2.8 % (20-40); Mean Corpuscular HGB Conc 35.3 g/dl (31.0-36.0); Mean Corpuscular Hemoglobin 34.8 pg (27.0-33.0); Mean Corpuscular Volume 98.5 fL (80.0-98.0); Mean Platelet Volume 11.7 fL (9.4-12.4); Monocytes Percent Auto 6.2 % (2-11); Neutrophils Absolute Auto 14.4 x10*3/uL (2.0-8.3); Platelet Count 125 X10*3/uL (160-400); Red Blood Count 3.42 X10*6/uL (4.60-5.80); Red Cell Distribution Width 18.1 % (11.0-16.0); White Blood Count 16.2 X10*3/uL (4.8-10.8)
--- NOTE | 2023-06-12 05:54 | PC.NURSE ---
PT TO ICU AT 0350. NO ACUTE RESP DISTRESS ON BIPAP FACEMASK 12/6 AND 24%. HOB UP 45 DEGREES. HE IS VERY LETHARGIC BUT IS AROUSABLE WHEN NAME IS CALLED. HE WEAKLY FOLLOW COMMANDS AND WILL ANSWER QUESTIONS IN 1-2 WORD RESPONSES BUT FALLS ASLEEP QUICKLY. O2 SAT 93-94%. RESP RATE 16-18/MIN. BP 116/76 ON ARRIVAL. LEVOPHED INFUSING AT 0.05 MCG/KG/MIN. SKIN IS JAUNDICED, WARM AND DRY. 2-3+ PEDAL AND LOWER LEG EDEMA NOTED. #16FR LYLE CATH INSERTED WITH COMPLICATION. PT TOLERATED PROCEDURE WELL. EXTERNAL CATH HAD DRAINED 225ML AND THEN ANOTHER 100ML AFTER INSERTION OF LYLE CATH. ABD IS DISTENDED AND SEMI FIRM WITH POSITIVE BOWEL SOUNDS.
[2023-06-12 06:03] LABS: Albumin Level 2.2 g/dL (3.5-5.0); Anion Gap 12 (12-20); Blood Urea Nitrogen 50 mg/dL (9-16); Calcium 8.5 mg/dL (8.4-10.2); Carbon Dioxide 21 mmol/L (22-29); Chloride 103 mmol/L (96-108); Creatinine Clr Calc Pharmacy 51.3; Estimated Glomerular Filt Rate 42; Glucose Random 65 mg/dL (60-115); Magnesium 2.1 mg/dL (1.6-2.6); Phosphorus 4.8 mg/dL (2.7-4.5); Potassium 4.4 mmol/L (3.3-5.1); Sodium 132 mmol/L (135-145)
[2023-06-12] MEDS: levoFLOXacin/D5W 750 MG/150 ML PIGGYBACK 100 MG IV (06:31)
[2023-06-12 07:32] LABS: Venous Blood Gas Refer to POC result
--- NOTE | 2023-06-12 08:24 | PHA.MEDREC ---
Pharmacy Consult ? Medication Reconciliation Pharmacy has completed the medication reconciliation. Spoke to patient's pharmacy ([facility]) and patient's daughter to confirm meds. Patient gets methadone mailed to them by [facility].
[2023-06-12] MEDS: Albuterol/Iprat 2.5/0.5MG 3 ML AMPUL.NEB INHALE ×3 (08:52→19:32)
[2023-06-12] MEDS: Nicotine 21 MG PATCH.TD24 TRANSDERMA (09:13)
[2023-06-12] MEDS: Enoxaparin Sodium 40 MG/0.4 ML SYRINGE SUBCUT (09:14)
[2023-06-12] MEDS: metroNIDAZOLE/NS 500 MG/100 ML PIGGYBACK 100 MG IV (09:15)
--- NOTE | 2023-06-12 09:26 | P.CONGS_ITS ---
History of Present Illness Consult details Consult date: 06/12/23 Narrative: 63-year-old male with history of cirrhosis, hepatocellular carcinoma, hepatitis- C, supplemental O2 dependent, admitted last night because of shortness of breath as well as abdominal pain. He describes this pain as mostly in the right side of his abdomen. He says he usually has some pain on this area for years now but he states that this seems to have been worse the past week He describes some vomiting as well. He has hepatocellular carcinoma and had previously undergone RFA treatment in [place]. He is currently undergoing some infusion for his hepatocellular carcinoma but the details of this is unknown The patient is currently on a BiPAP machine. He answers some questions but with difficulty. Review of Systems Constitutional: Constitutional: Denies chills, Denies fever(s) and Reports snoring Cardiovascular: Cardiovascular: Denies chest pain, Reports dyspnea and Reports dyspnea on exertion Respiratory: Respiratory: Reports dyspnea, Reports dyspnea on exertion and Reports snoring Genitourinary: Genitourinary: Denies difficulty urinating Neurologic: Denies focal weakness PMFSH Past Medical History Medical History (Updated 06/17/23 @ 15:28 by Manny Leggett MD) Hepatitis C History of narcotic addiction Hypertension Hypertension Liver cancer Right sided abdominal pain Supplemental oxygen dependent Thigh hematoma Tuberculosis Surgical History Surgical History H/O colonoscopy H/O hemorrhoidectomy History of esophagogastroduodenoscopy (EGD) Social History Social History Household Members: None Household Members Other:: NONE BUT PT HAS FAMILY THAT CHECKS ON HIM INCLUDING DAUGHTER HARI Housing: Apartment Are you a primary pet caregiver to a significant other at home: No Unable to assess alcohol history related to: Unknown Alcohol intake: never Patient Tobacco Use Status: Tobacco use Unknown Tobacco use type: Cigarette Cigarette Packs Per Day: 1 Cigarettes Per Day: 10.0 Years Smoked: 48 Substance Use Type: Marijuana service: No Current occupational status: disabled Meds Allergies Allergy/AdvReac Type Severity Reaction Status Date / Time Gadolinium-Containing Allergy Mild VOMITING Verified 06/11/23 18:37 Contrast Medi [Gadolinium-Containing Contrast] Sulfa (Sulfonamide Allergy Unknown RASH Verified 06/11/23 18:37 Antibiotics) [SULFA (SULFONAMIDE ANTIBIOTICS)] temazepam [Restoril] Allergy Unknown Hallucinations, Verified 06/11/23 18:37 amnesia Active Medications: Current Medications Albuterol/Ipratropium (Albuterol/Iprat 2.5/0.5mg 3 Ml Ampul.Neb) 3 ml INHALE RQ4H WHILE AWAKE [facility] Last Admin: 06/12/23 08:52 Dose: 3 ml Enoxaparin Sodium (Enoxaparin Sodium 40 Mg/0.4 Ml Syringe) 40 mg SUBCUT Q24H [facility] Last Admin: 06/12/23 09:14 Dose: 40 mg Norepinephrine Bitartrate (Levophed) 8 mg in 250 mls @ 0 mls/hr IV .Q0M [facility]; Protocol Last Admin: 06/12/23 03:35 Dose: 0.05 mcg/kg/min, 9.36 mls/hr Metronidazole (Flagyl) 500 mg in 100 mls @ 100 mls/hr IV Q8H [facility] Last Admin: 06/12/23 09:15 Dose: 100 mls/hr Morphine Sulfate (Morphine Sulfate 4 Mg/Ml Cartridge) 4 mg IVPUSH Q4H PRN; Protocol PRN Reason: Pain, Severe (Pain Scale 7-10) Nicotine (Nicotine 21 Mg Patch.Td24) 21 mg TRANSDERMA DAILY [facility] Last Admin: 06/12/23 09:13 Dose: 21 mg Pantoprazole Sodium (Pantoprazole Sodium 40 Mg/10 Ml Vial) 40 mg IVPUSH DAILY@0630 [facility] Last Admin: 06/12/23 05:31 Dose: 40 mg Home Medications Medication Instructions Recorded Confirmed Last Taken Type albuterol sulfate 90 mcg/actuation 2 puff inhalation Q6H PRN 09/21/20 06/12/23 Unknown History aerosol inhaler Shortness Of Breath Or Wheezing clonidine HCl 0.1 mg tablet 0.1 mg PO TID 09/21/20 06/12/23 06/11/23 History ipratropium 20 mcg-albuterol 100 2 puff inhalation Q6H PRN 09/21/20 06/12/23 Unknown History mcg/actuation mist for inhalation Shortness Of Breath Or Wheezing pregabalin 50 mg capsule 50 mg PO TID 09/21/20 06/12/23 06/11/23 History amlodipine 10 mg tablet 10 mg PO DAILY 09/12/22 06/12/23 06/11/23 History atorvastatin 20 mg tablet 20 mg PO BEDTIME 09/12/22 06/12/23 06/11/23 History lisinopril 30 mg tablet 30 mg PO DAILY 09/12/22 06/12/23 06/11/23 History methadone 10 mg/mL oral concentrate 150 mg PO DAILY 10/09/22 03/21/23 11/08/22 History ascorbic acid (vitamin C) 250 mg 250 mg PO Q OTHER DAY 06/12/23 06/12/23 06/11/23 History tablet aspirin 81 mg tablet,delayed 81 mg PO DAILY 06/12/23 06/12/23 06/11/23 History release cholecalciferol (vitamin D3) 1,250 1,250 mcg PO TU@0900 06/12/23 06/12/23 06/11/23 History mcg (50,000 unit) capsule ferrous sulfate 325 mg (65 mg 325 mg PO Q OTHER DAY 06/12/23 06/12/23 06/11/23 History iron) tablet (FeroSul) hydrocortisone 1 % topical cream 1 appl topical BID PRN Pain 06/12/23 06/12/23 Unknown History sennosides 8.6 mg tablet (senna) 8.6 mg PO DAILY 06/12/23 06/12/23 06/11/23 History Physical Exam Vital Signs: Vital Signs: Last Vital Signs Temp 97.0 F 06/12/23 09:00 Pulse 79 06/12/23 09:00 Resp 27 H 06/12/23 09:14 BP 108/60 06/12/23 09:00 Pulse Ox 92 06/12/23 09:00 O2 Del Method BiPAP 06/12/23 09:00 O2 Flow Rate 3 06/11/23 23:07 FiO2 24 06/12/23 09:00 Oxygen Flow Rate 2 06/11/23 18:15 BMI result Body Mass Index 37.3 Const: Other: Short of breath, with BiPAP Resp: Other: Short of breath, with BiPAP Cardio: Rate: tachycardic GI: Other: Tender on the right side the abdomen, no guarding or rebound Palpation (GI): Soft to palpation Results Labs 06/12/23 04:56 06/12/23 04:56 Labs: Abnormal lab results 06/11/23 06/11/23 06/11/23 Range/Units 19:03 19:03 19:03 WBC 14.4 H (4.8-10.8) X10*3/uL RBC 3.63 L (4.60-5.80) X10*6/uL Hgb 12.4 L (14.0-18.0) g/dl Hct 35.3 L (42.0-52.0) % MCV (80.0-98.0) fL MCH 34.2 H (27.0-33.0) pg RDW 17.7 H (11.0-16.0) % Plt Count 127 L D (160-400) X10*3/uL Immature Gran % (Auto) 1.5 H (0.0-0.4) % Neut % (Auto) 90.1 H (45-73) % Lymph % (Auto) 3.0 L (20-40) % Lymph # (Auto) 0.4 L (1.2-4.9) X10*3/uL Abs Immat Gran (auto) 0.22 H (0.00-0.03) X10*3/uL Absolute Neuts (auto) 12.9 H (2.0-8.3) x10*3/uL PT 15.4 H (11.1-13.3) SEC INR 1.3 H (0.9-1.1) ABG pH at Pt Temp (7.35-7.45) ABG pCO2 at Pt Temp (32-45) mmHg ABG pO2 at Pt Temp (83-108) mmHg ABG HCO3 (22-26) mmol/L Sodium 131 L (135-145) mmol/L Carbon Dioxide (22-29) mmol/L BUN 52 H (9-16) mg/dL Creatinine 2.00 H (0.5-1.4) mg/dL Phosphorus (2.7-4.5) mg/dL Total Bilirubin 5.9 H (0.0-1.0) mg/dL Direct Bilirubin 4.5 H (0.0-0.5) mg/dL AST 177 H (5-37) U/L ALT 54 H (0-40) U/L Alkaline Phosphatase 387 H (39-117) U/L B-Natriuretic Peptide (<100) pg/mL Albumin 2.4 L (3.5-5.0) g/dL Urine Protein (Neg-Trace) mg/dL Urine Nitrite (Negative) Ur Leukocyte Esterase (Negative) Urine RBC (0-2) /HPF Urine Fentanyl Screen (Not Detect) U Marijuana (THC) Screen (Not Detect) 06/11/23 06/11/23 06/12/23 Range/Units 22:01 22:01 00:16 WBC (4.8-10.8) X10*3/uL RBC (4.60-5.80) X10*6/uL Hgb (14.0-18.0) g/dl Hct (42.0-52.0) % MCV (80.0-98.0) fL MCH (27.0-33.0) pg RDW (11.0-16.0) % Plt Count (160-400) X10*3/uL Immature Gran % (Auto) (0.0-0.4) % Neut % (Auto) (45-73) % Lymph % (Auto) (20-40) % Lymph # (Auto) (1.2-4.9) X10*3/uL Abs Immat Gran (auto) (0.00-0.03) X10*3/uL Absolute Neuts (auto) (2.0-8.3) x10*3/uL PT (11.1-13.3) SEC INR (0.9-1.1) ABG pH at Pt Temp (7.35-7.45) ABG pCO2 at Pt Temp (32-45) mmHg ABG pO2 at Pt Temp (83-108) mmHg ABG HCO3 (22-26) mmol/L Sodium 134 L (135-145) mmol/L Carbon Dioxide (22-29) mmol/L BUN 51 H (9-16) mg/dL Creatinine 1.67 H (0.5-1.4) mg/dL Phosphorus (2.7-4.5) mg/dL Total Bilirubin (0.0-1.0) mg/dL Direct Bilirubin (0.0-0.5) mg/dL AST (5-37) U/L ALT (0-40) U/L Alkaline Phosphatase (39-117) U/L B-Natriuretic Peptide (<100) pg/mL Albumin (3.5-5.0) g/dL Urine Protein 30 (1+) H (Neg-Trace) mg/dL Urine Nitrite Positive H (Negative) Ur Leukocyte Esterase Small (1+) H (Negative) Urine RBC 6-10 H (0-2) /HPF Urine Fentanyl Screen POSITIVE H (Not Detect) U Marijuana (THC) Screen POSITIVE H (Not Detect) 06/12/23 06/12/23 06/12/23 Range/Units 00:16 00:24 04:56 WBC 16.2 H (4.8-10.8) X10*3/uL RBC 3.42 L (4.60-5.80) X10*6/uL Hgb 11.9 L (14.0-18.0) g/dl Hct 33.7 L (42.0-52.0) % MCV 98.5 H (80.0-98.0) fL MCH 34.8 H (27.0-33.0) pg RDW 18.1 H (11.0-16.0) % Plt Count 125 L (160-400) X10*3/uL Immature Gran % (Auto) 1.5 H (0.0-0.4) % Neut % (Auto) 89.0 H (45-73) % Lymph % (Auto) 2.8 L (20-40) % Lymph # (Auto) 0.5 L (1.2-4.9) X10*3/uL Abs Immat Gran (auto) 0.24 H (0.00-0.03) X10*3/uL Absolute Neuts (auto) 14.4 H (2.0-8.3) x10*3/uL PT (11.1-13.3) SEC INR (0.9-1.1) ABG pH at Pt Temp 7.34 L (7.35-7.45) ABG pCO2 at Pt Temp 50 H (32-45) mmHg ABG pO2 at Pt Temp 68 L (83-108) mmHg ABG HCO3 27 H (22-26) mmol/L Sodium (135-145) mmol/L Carbon Dioxide (22-29) mmol/L BUN (9-16) mg/dL Creatinine (0.5-1.4) mg/dL Phosphorus (2.7-4.5) mg/dL Total Bilirubin (0.0-1.0) mg/dL Direct Bilirubin (0.0-0.5) mg/dL AST (5-37) U/L ALT (0-40) U/L Alkaline Phosphatase (39-117) U/L B-Natriuretic Peptide 133 H (<100) pg/mL Albumin (3.5-5.0) g/dL Urine Protein (Neg-Trace) mg/dL Urine Nitrite (Negative) Ur Leukocyte Esterase (Negative) Urine RBC (0-2) /HPF Urine Fentanyl Screen (Not Detect) U Marijuana (THC) Screen (Not Detect) 06/12/23 Range/Units 04:56 WBC (4.8-10.8) X10*3/uL RBC (4.60-5.80) X10*6/uL Hgb (14.0-18.0) g/dl Hct (42.0-52.0) % MCV (80.0-98.0) fL MCH (27.0-33.0) pg RDW (11.0-16.0) % Plt Count (160-400) X10*3/uL Immature Gran % (Auto) (0.0-0.4) % Neut % (Auto) (45-73) % Lymph % (Auto) (20-40) % Lymph # (Auto) (1.2-4.9) X10*3/uL Abs Immat Gran (auto) (0.00-0.03) X10*3/uL Absolute Neuts (auto) (2.0-8.3) x10*3/uL PT (11.1-13.3) SEC INR (0.9-1.1) ABG pH at Pt Temp (7.35-7.45) ABG pCO2 at Pt Temp (32-45) mmHg ABG pO2 at Pt Temp (83-108) mmHg ABG HCO3 (22-26) mmol/L Sodium 132 L (135-145) mmol/L Carbon Dioxide 21 L (22-29) mmol/L BUN 50 H (9-16) mg/dL Creatinine 1.67 H (0.5-1.4) mg/dL Phosphorus 4.8 H (2.7-4.5) mg/dL Total Bilirubin (0.0-1.0) mg/dL Direct Bilirubin (0.0-0.5) mg/dL AST (5-37) U/L ALT (0-40) U/L Alkaline Phosphatase (39-117) U/L B-Natriuretic Peptide (<100) pg/mL Albumin 2.2 L (3.5-5.0) g/dL Urine Protein (Neg-Trace) mg/dL Urine Nitrite (Negative) Ur Leukocyte Esterase (Negative) Urine RBC (0-2) /HPF Urine Fentanyl Screen (Not Detect) U Marijuana (THC) Screen (Not Detect) Short CBC 06/11/23 06/12/23 Range/Units 19:03 04:56 WBC 14.4 H 16.2 H (4.8-10.8) X10*3/uL Hgb 12.4 L 11.9 L (14.0-18.0) g/dl Hct 35.3 L 33.7 L (42.0-52.0) % Plt Count 127 L D 125 L (160-400) X10*3/uL BMP 06/11/23 06/12/23 06/12/23 19:03 00:16 04:56 Sodium 131 L 134 L 132 L Potassium 4.7 4.4 4.4 Chloride 96 101 103 Carbon Dioxide 26 23 21 L BUN 52 H 51 H 50 H Creatinine 2.00 H 1.67 H 1.67 H Calcium 9.1 8.4 D 8.5 Cardiac Enzymes 06/11/23 Range/Units 19:03 Total Creatine Kinase 122 (38-174) U/L Liver Function 06/11/23 06/12/23 Range/Units 19:03 04:56 Total Bilirubin 5.9 H (0.0-1.0) mg/dL Direct Bilirubin 4.5 H (0.0-0.5) mg/dL AST 177 H (5-37) U/L ALT 54 H (0-40) U/L Alkaline Phosphatase 387 H (39-117) U/L Albumin 2.4 L 2.2 L (3.5-5.0) g/dL Urine 06/11/23 Range/Units 22:01 Urine Color Dark Yellow Urine Appearance Cloudy Urine pH 5.5 (5.0-9.0) Ur Specific [place] 1.020 (1.005-1.025) Urine Protein 30 (1+) H (Neg-Trace) mg/dL Urine Glucose (UA) Negative (Negative) mg/dL All other labs normal. Laboratory Results WBC 16.2 X10*3/uL (4.8-10.8) H 06/12/23 04:56 RBC 3.42 X10*6/uL (4.60-5.80) L 06/12/23 04:56 Hgb 11.9 g/dl (14.0-18.0) L 06/12/23 04:56 Hct 33.7 % (42.0-52.0) L 06/12/23 04:56 MCV 98.5 fL (80.0-98.0) H 06/12/23 04:56 MCH 34.8 pg (27.0-33.0) H 06/12/23 04:56 MCHC 35.3 g/dl (31.0-36.0) 06/12/23 04:56 RDW 18.1 % (11.0-16.0) H 06/12/23 04:56 Plt Count 125 X10*3/uL (160-400) L 06/12/23 04:56 MPV 11.7 fL (9.4-12.4) 06/12/23 04:56 Immature Gran % (Auto) 1.5 % (0.0-0.4) H 06/12/23 04:56 Neut % (Auto) 89.0 % (45-73) H 06/12/23 04:56 Lymph % (Auto) 2.8 % (20-40) L 06/12/23 04:56 Edmunds % (Auto) 6.2 % (2-11) 06/12/23 04:56 Eos % (Auto) 0.1 % (0-4) 06/12/23 04:56 Baso % (Auto) 0.4 % (0-2) 06/12/23 04:56 Lymph # (Auto) 0.5 X10*3/uL (1.2-4.9) L 06/12/23 04:56 Edmunds # (Auto) 1.0 X10*3/uL (0.1-1.2) 06/12/23 04:56 Eos # (Auto) 0.0 X10*3/uL (0.0-0.4) 06/12/23 04:56 Baso # (Auto) 0.1 X10*3/uL (0.0-0.2) 06/12/23 04:56 Abs Immat Gran (auto) 0.24 X10*3/uL (0.00-0.03) H 06/12/23 04:56 Absolute Neuts (auto) 14.4 x10*3/uL (2.0-8.3) H 06/12/23 04:56 Absolute Nucleated RBC 0.000 X10*3/uL (0.0-0.012) 06/12/23 04:56 Nucleated RBC % (auto) 0.0 /100WBC (0.0-0.2) 06/12/23 04:56 Smear Tech's Comments VERIFIED 06/11/23 19:03 PT 15.4 SEC (11.1-13.3) H 06/11/23 19:03 INR 1.3 (0.9-1.1) H 06/11/23 19:03 O2 Saturation 88.0 % 06/12/23 00:24 ABG pH at Pt Temp 7.34 (7.35-7.45) L 06/12/23 00:24 ABG pCO2 at Pt Temp 50 mmHg (32-45) H 06/12/23 00:24 ABG pO2 at Pt Temp 68 mmHg (83-108) L 06/12/23 00:24 ABG HCO3 27 mmol/L (22-26) H 06/12/23 00:24 ABG Base Excess (Actual) 1.3 mmol/L 06/12/23 00:24 VBG pH 7.40 (7.32-7.43) 06/12/23 04:58 VBG pCO2 39 mmHg 06/12/23 04:58 VBG pO2 67 mmHg 06/12/23 04:58 VBG HCO3 25 mmol/L (22-26) 06/12/23 04:58 VBG O2 Saturation 91.0 % 06/12/23 04:58 VBG Base Excess 0.5 mmol/L 06/12/23 04:58 Sodium 132 mmol/L (135-145) L 06/12/23 04:56 Potassium 4.4 mmol/L (3.3-5.1) 06/12/23 04:56 Chloride 103 mmol/L (96-108) 06/12/23 04:56 Carbon Dioxide 21 mmol/L (22-29) L 06/12/23 04:56 Anion Gap 12 (12-20) 06/12/23 04:56 BUN 50 mg/dL (9-16) H 06/12/23 04:56 Creatinine 1.67 mg/dL (0.5-1.4) H 06/12/23 04:56 Estim Creat Clear Calc 51.3 06/12/23 04:56 Estimated GFR 42 06/12/23 04:56 Random Glucose 65 mg/dL (60-115) 06/12/23 04:56 Lactic Acid 1.7 mmol/L (0.5-2.0) 06/11/23 19:03 Calcium 8.5 mg/dL (8.4-10.2) 06/12/23 04:56 Phosphorus 4.8 mg/dL (2.7-4.5) H 06/12/23 04:56 Magnesium 2.1 mg/dL (1.6-2.6) 06/12/23 04:56 Total Bilirubin 5.9 mg/dL (0.0-1.0) H 06/11/23 19:03 Direct Bilirubin 4.5 mg/dL (0.0-0.5) H 06/11/23 19:03 AST 177 U/L (5-37) H 06/11/23 19:03 ALT 54 U/L (0-40) H 06/11/23 19:03 Alkaline Phosphatase 387 U/L (39-117) H 06/11/23 19:03 Ammonia 37 umol/L (13-55) 06/11/23 19:03 Total Creatine Kinase 122 U/L (38-174) 06/11/23 19:03 Troponin I High Sens 13.7 ng/L (<3.5-35.0) 06/12/23 00:16 B-Natriuretic Peptide 133 pg/mL (<100) H 06/12/23 00:16 Total Protein 8.0 g/dL (6.5-8.0) 06/11/23 19:03 Albumin 2.2 g/dL (3.5-5.0) L 06/12/23 04:56 Lipase 29 U/L (8-78) 06/11/23 19:03 TSH 2.51 uIU/mL (0.32-4.0) 06/11/23 19:03 Urine Color Dark Yellow 06/11/23 22: Urine Appearance Cloudy 06/11/23 22: Urine pH 5.5 (5.0-9.0) 06/11/23 22:01 Ur Specific [place] 1.020 (1.005-1.025) 06/11/23 22: Urine Protein 30 (1+) mg/dL (Neg-Trace) H 06/11/23 22: Urine Glucose (UA) Negative mg/dL (Negative) 06/11/23 22: Urine Ketones Negative mg/dL (Negative) 06/11/23 22: Urine Blood Negative (Negative) 06/11/23 22: Urine Nitrite Positive (Negative) H 06/11/23 22:01 Ur Leukocyte Esterase Small (1+) (Negative) H 06/11/23 22:01 Urine RBC 6-10 /HPF (0-2) H 06/11/23 22: Urine WBC 6-10 /HPF (0-5) 06/11/23 22:01 Ur Squamous Epith Cells 6-10 /HPF (0-2) 06/11/23 22:01 Urine Bacteria None Seen (None Seen) 06/11/23 22: Hyaline Casts 6-10 /LPF (0-2) 06/11/23 22:01 Granular Casts Present 06/11/23 22:01 Urine Opiates Screen Not Detected (Not Detect) 06/11/23 22:01 Urine Fentanyl Screen POSITIVE (Not Detect) H 06/11/23 22:01 Ur Barbiturates Screen Not Detected (Not Detect) 06/11/23 22:01 Ur Phencyclidine Scrn Not Detected (Not Detect) 06/11/23 22:01 Ur Amphetamines Screen Not Detected (Not Detect) 06/11/23 22: U Benzodiazepines Scrn Not Detected (Not Detect) 06/11/23 22:01 Urine Cocaine Screen Not Detected (Not Detect) 06/11/23 22:01 U Marijuana (THC) Screen POSITIVE (Not Detect) H 06/11/23 22:01 Ethyl Alcohol 11 mg/dL 06/11/23 19:03 Impressions Abdomen/Pelvis CT 06/11/23 20:25 IMPRESSION: 1. Cirrhotic liver with mild ascites and soft tissue anasarca. 2. There appears to be a 4.7 cm mass medial right lobe the liver as seen on prior MRI. 3. Distended mildly thickened gallbladder containing gallstones and apparent sludge. Correlation for significance is needed. Consider ultrasound assessment. 4. Elevation of the right hemidiaphragm with consolidation at the right lung base suggesting atelectasis and/or infiltrate. 5. 1 mm nonobstructing left renal calculus. 6. Lingular nodules measuring up to 8 mm. Fleischner guidelines were followed. Abdomen Ultrasound 06/11/23 22:32 IMPRESSION: 1. Abnormal liver with a known mass in the right lobe of the liver with no thrombosed portal vein. 2. The gallbladder is distended with a thickened wall and sludge. Known fundal small stones seen on the CT scan earlier today are not visualized on US. Chest X-Ray 06/12/23 00:45 IMPRESSION: Hypoinflated lungs with bibasilar atelectasis and possible small right pleural effusion. No convincing evidence of CHF or pulmonary edema. Assessment and Plan (1) Right sided abdominal pain: Status: Acute He has multiple medical problems including hepatocellular cancer, cirrhosis, and is O2 dependent. He does have pain and tenderness on the right upper quadrant. He has known hepatocellular cancer and this may be causing his pain as well. His CT scan and imaging studies show of the gallbladder wall and sludge along with gallbladder distension. These changes may be seen with ascites as well and liver disease. However, if there is no other focus of infection that is identified, it may be best to proceed with IR tube cholecystostomy. His coags are acceptable at this time. He has elevated bilirubin secondary to his cirrhosis as well as his hepatocellular cancer. He is a not candidate for surgical intervention. Time Spent With Patient Time: Total time managing care of this patient today ____ minutes. Procedures Date of Service Date of Service: 06/18/23
--- NOTE | 2023-06-12 09:49 | MHC.CM.PN ---
Addendum entered by Kecia Camara 06/12/23 13:57: MET WITH PT EX-SPOUSE AT BEDSIDE, PT ABLE TO STATE IT WAS OK TO SPEAK WITH HER (DAHIANA RIVERA [phone]) DAHIANA STATES HE WILL NEED MORE ASSIST AT HOME, BROTHER STAYS WITH HIM BUT DOES NOT PARTICIPATE IN ASSISTING PT. REFERRAL SENT TO [facility] RN TO MEET WITH PT/FAMILY WHILE I/P. PT IS ALSO ON METHADONE AND RECEIVES IT AT [facility]. Original Note: IMM DELIVERED. EXPLAINED TO DAUGHTER ISH, WHITE COPY TO BE MAILED. PT LIVES ALONE. PT ATTENDS CHEMO TREATMENT MONTHLY AT [facility]. PT HAS TRANSPORTATION TO THE TREATMENT THROUGH [facility]. PT ON 02 AT BASELINE, DAUGHTER IS UNSURE OF COMPANY. PT HAS [facility] FOR HM 2 HOURS PER WEEK. +COVID [facility] DAUGHTER ISH BELIEVES THERE IS A HCP BUT DOES NOT HAVE A COPY. CM WILL ATTEMPT TO LOCATE OR DO NEW ONE WHEN PT IS ABLE. PCP DR. JOHNSON AT [facility]. DP: PT DAUGHTER IS AGREEABLE TO [facility]/MORE HOURS FROM [facility]. FAMILY WILL TRANSPORT AT [place]. CM WILL CONTINUE TO FOLLOW FOR ANY CHANGE IN DC PLAN/NEEDS.
[2023-06-12] MEDS: Morphine Sulfate 4 MG/ML CARTRIDGE IVPUSH ×2 (10:13→22:40)
--- NOTE | 2023-06-12 11:55 | PC.NURSE ---
Addendum entered by Yusuf Peña RN 06/12/23 19:12: SpO2 at 18:30 staying about 86-7% on Bipap 12/6 30% up to 75% gradually, SpO2 unchanging, patient sleeping but arousable to voice. RT called to bedside and titrated settings to 15/8 rate 10 and 40% and SpO2 staying 90%. Patient POC checked due to NPO status, and is 62, EMBOSSING PRESS OPERATOR APPRENTICE notified and IV dextrose ordered. Patient also with low BP at shift change and oncoming nurse restarting Levophed. Report to night time nurse. Addendum entered by Yusuf Peña RN 06/12/23 18:23: SpO2 dropping to 87%, FiO2 uptitrated to 35% via bipap Addendum entered by Yusuf Peña RN 06/12/23 18:11: Patient went to CT for CT chest and placement of percutaneous cholecystostomy; reportedly had trouble laying flat and was placed back on bipap by RT. Continues on 09/25 and 30%, well tolerted, SpO2 88-92. Patient reports feeling more comfortable on return. drained 65 ccs brown drainage from JONA drain at RLQ. Original Note: Assumed care at 07:00. Patient alert, oriented to person and place, vague and disoriented to time. Otherwise answers questions appropriately in Armenian and Cambodian. Communicated with mostly in Cambodian with patient occasionally using Armenian words. Interpretter contacted to facilitate. Patient Moves all extremities, is somewhat restless, reports difficulty tolerating Bipap mask due to being hungry and thirsty. Strict aspiration precautions observed after patient failed 3 L nasal cannula this morning. Patient now trialing 3 LPM again and tolerating at 11:50, SpO2 91%, LS dim at bases. Shallow inspirations, denied SOB. Levophed off [id number]. Contacted Josy at [facility] to verify last dose of methadone. Morphine prn for RLQ pain with effect.
[2023-06-12] MEDS: methADONE HCl 20 MG/2 ML ORAL.CONC 132 MG PO (14:06)
[2023-06-12 19:15] LABS: Glucose, Whole Blood 62 mg/dL (60-115)
[2023-06-12] MEDS: Dextrose 50 % 25 GM/50 ML SYRINGE IVPUSH (19:18)
--- NOTE | 2023-06-12 19:23 | PC.NURSE ---
Per [facility] nurseJosy, patient will need MAR and discharge summary for continuity of care regarding [facility] and [facility]
[2023-06-12 19:40] LABS: Glucose, Whole Blood 140 mg/dL (60-115)
[2023-06-12 19:50] LABS: VBG Base Excess 0.7 mmol/L; VBG HCO3 26 mmol/L (22-26); VBG pCO2 47 mmHg; VBG pH 7.35 (7.32-7.43); VBG pO2 45 mmHg
[2023-06-12] MEDS: Vasopressin 20 UNIT/100 ML INFUS..BTL 3 UNIT IV (20:41)
[2023-06-12] MEDS: Albumin Human 25 % 100 ML IV ×2 (20:57→21:38)
[2023-06-12 22:50] LABS: Venous Blood Gas Refer to POC result
--- NOTE | 2023-06-12 23:35 | PC.NURSE ---
ASSUMED CARE OF PT AT 1900. S/P TRACHEOSTOMY EARLIER TODAY. #7 SHILEY TRACH MIDLINE. DISPOSABLE INNER CANNULA CHANGED. ONLY SUCTIONING SCANT TO SMALL AMOUNTS OF THICH CREAM/WHITE SPUTUM FROM TRACH. LARGE AMOUTS OF CLEAR ORAL SECRETIONS NOTED. TRACH DSG CHANGED FOR SMALL AMT OF BLOODY STAINING. STOMA SITE CLEAN AND Q-TIP USED TO CLEAN UNDERNEATH. NO RESP DISTRESS. PT SEDATED ON VERSED AND FENTANYL ORDERED WITH GOOD EFFECT. OPENS EYES WITH NSG INTERVENTIONS BUT NO TRACKING OR FOLLOWING. POSITIVE COUGH, NO GAG REFLEX. DOES NOT FOLLOW COMMANDS. RUELAS NON PURPOSEFULLY. MONITOR SHOWS SR, 70'S-80'S, NO ECTOPY. URINE OUTPUT GOOD. WILL RESTART TUBE FEEDS IN AM PER SURGEON. PEG TUBE IN PLACE WITH DSG, NO STAINING ON DSG.
[2023-06-12 23:59] LABS: Glucose, Whole Blood 91 mg/dL (60-115)
[2023-06-13] VITALS (42 sets, daily range): BP systolic 87–145; BP diastolic 59–94; PULSE 62–102; RESP 10–32; TEMP 35.8–36.5; O2SAT 74–96; BMI 36.9
[2023-06-13] MEDS: Norepinephrine Bitartrate/D5W 8 MG/250 ML PLAST..BAG 13.1 MG IV (00:28)
[2023-06-13] MEDS: Morphine Sulfate 4 MG/ML CARTRIDGE IVPUSH ×7 (02:40→22:28)
[2023-06-13 04:53] LABS: Glucose, Whole Blood 91 mg/dL (60-115)
[2023-06-13 04:56] LABS: VBG Base Excess 0.2 mmol/L; VBG HCO3 24 mmol/L (22-26); VBG pCO2 40 mmHg; VBG pO2 61 mmHg
[2023-06-13] MEDS: Pantoprazole Sodium 40 MG/10 ML VIAL IVPUSH (05:57)
[2023-06-13 05:59] LABS: Alanine Aminotransferase 41 U/L (0-40); Albumin Level 2.7 g/dL (3.5-5.0); Alkaline Phosphatase 320 U/L (39-117); Anion Gap 13 (12-20); Aspartate Amino Transferase 129 U/L (5-37); Bilirubin Total 5.8 mg/dL (0.0-1.0); Blood Urea Nitrogen 51 mg/dL (9-16); Calcium 8.7 mg/dL (8.4-10.2); Carbon Dioxide 23 mmol/L (22-29); Chloride 103 mmol/L (96-108); Creatinine Clr Calc Pharmacy 56.3; Estimated Glomerular Filt Rate 47; Glucose Random 92 mg/dL (60-115); Magnesium 2.3 mg/dL (1.6-2.6); Phosphorus 3.6 mg/dL (2.7-4.5); Potassium 4.3 mmol/L (3.3-5.1); Sodium 135 mmol/L (135-145); Total Protein 7.4 g/dL (6.5-8.0)
[2023-06-13 06:05] LABS: Basophils Absolute Auto 0.1 X10*3/uL (0.0-0.2); Basophils Percent Auto 0.3 % (0-2); Eosinophils Percent Auto 0.1 % (0-4); PLT CLUMP 1; Red Blood Count 3.59 X10*6/uL (4.60-5.80); SCAN SMEAR FLAG 1
[2023-06-13 06:07] LABS: Hematocrit 35.1 % (42.0-52.0); Hemoglobin 12.3 g/dl (14.0-18.0); Imm Gran Abs Auto 0.38 X10*3/uL (0.00-0.03); Imm Gran Pct Auto 2.5 % (0.0-0.4); Lymphocytes Absolute Auto 0.5 X10*3/uL (1.2-4.9); Lymphocytes Percent Auto 3.2 % (20-40); MANUAL DIFF FLAG SCAN; Mean Corpuscular Hemoglobin 34.3 pg (27.0-33.0); Mean Corpuscular Volume 97.8 fL (80.0-98.0); Monocytes Absolute Auto 1.1 X10*3/uL (0.1-1.2); Neutrophils Absolute Auto 13.3 x10*3/uL (2.0-8.3); Neutrophils Percent Auto 86.9 % (45-73); White Blood Count 15.3 X10*3/uL (4.8-10.8)
[2023-06-13 06:14] LABS: Venous Blood Gas Refer to POC result
[2023-06-13 06:35] LABS: SLIDE REVIEW VERIFIED
[2023-06-13] MEDS: Albuterol/Iprat 2.5/0.5MG 3 ML AMPUL.NEB INHALE ×4 (07:15→19:23)
[2023-06-13] MEDS: Ketorolac Tromethamine 30 MG/ML VIAL IVPUSH (07:18)
[2023-06-13] MEDS: Enoxaparin Sodium 40 MG/0.4 ML SYRINGE SUBCUT (07:19)
--- NOTE | 2023-06-13 07:53 | P.PNGS_ITS ---
Subjective Subjective Date of Service: 06/14/23 Interval history: on BIPAP cholecystostomy tube placed yesterday - bilious drainage, not purulent says he still has pain Physical Exam Vital Signs: Vital Signs: Last Vital Signs Temp 97.2 F 06/13/23 07:00 Pulse 102 H 06/13/23 07:16 Resp 32 H 06/13/23 07:25 BP 135/94 H 06/13/23 07:11 Pulse Ox 91 L 06/13/23 07:00 O2 Del Method BiPAP 06/13/23 07:00 O2 Flow Rate 3 06/12/23 15:00 FiO2 40 06/13/23 07:31 Oxygen Flow Rate 2 06/11/23 18:15 BMI result Body Mass Index 36.9 Const: Other: short of breath Resp: Other: on BIPAP Cardio: Other: tachycardic GI: Other: soft, tender on right; cholecystostomy tube in place - bilious output Objective Data Active Medications Albuterol/Ipratropium (Albuterol/Iprat 2.5/0.5mg 3 Ml Ampul.Neb) 3 ml INHALE RQ4H WHILE AWAKE [facility] Last Admin: 06/13/23 07:15 Dose: 3 ml Documented By: GIA Enoxaparin Sodium (Enoxaparin Sodium 40 Mg/0.4 Ml Syringe) 40 mg SUBCUT Q24H S Last Admin: 06/13/23 07:19 Dose: 40 mg Documented By: SHI Meropenem 1 gm/ Sodium (Chloride) 100 mls @ 200 mls/hr IV Q8H [facility] Last Infusion: 06/13/23 05:58 Dose: 200 mls/hr Documented By: KULWANT Vasopressin (Vasostrict) 20 unit in 100 mls @ 3 mls/hr IV .Q24H [facility] Last Admin: 06/12/23 20:41 Dose: 0.01 unit/min, 3 mls/hr Documented By: KULWANT Dextrose (D10) 250 mls @ 500 mls/hr IV Q4H PRN PRN Reason: per Hypoglycemia Standing Ord. Ketorolac Tromethamine (Ketorolac Tromethamine 15 Mg/Ml Vial) 15 mg IVPUSH Q6H [facility] Stop: 06/14/23 12:00 Last Admin: 06/13/23 07:25 Dose: Not Given Documented By: SHI Non-Admin Reason: Physician Held Med Methadone HCl (Methadone Hcl 20 Mg/2 Ml Oral.Conc) 132 mg PO DAILY [facility] Last Admin: 06/12/23 14:06 Dose: 132 mg Documented By: ALLEN Morphine Sulfate (Morphine Sulfate 4 Mg/Ml Cartridge) 4 mg IVPUSH Q4H [facility]; Protocol Last Admin: 06/13/23 07:19 Dose: 4 mg Documented By: SHI Nicotine (Nicotine 21 Mg Patch.Td24) 21 mg TRANSDERMA DAILY [facility] Last Admin: 06/12/23 09:13 Dose: 21 mg Documented By: ALLEN Pantoprazole Sodium (Pantoprazole Sodium 40 Mg/10 Ml Vial) 40 mg IVPUSH DAILY@0630 [facility] Last Admin: 06/13/23 05:57 Dose: 40 mg Documented By: KULWANT Labs 06/13/23 04:50 06/13/23 04:50 Labs: Laboratory Results - last 24 hr 06/12/23 06/12/23 06/12/23 19:12 19:36 19:46 MCV MCH MCHC RDW Immature Gran % (Auto) Neut % (Auto) Lymph % (Auto) [place] % (Auto) Eos % (Auto) Baso % (Auto) Lymph # (Auto) [place] # (Auto) Eos # (Auto) Baso # (Auto) Abs Immat Gran (auto) Absolute Neuts (auto) Absolute Nucleated RBC Nucleated RBC % (auto) Smear Tech's Comments VBG pH 7.35 VBG pCO2 47 VBG pO2 45 VBG HCO3 26 VBG O2 Saturation 67.0 VBG Base Excess 0.7 Anion Gap Estim Creat Clear Calc Estimated GFR POC Glucose 62 140 H Random Glucose Calcium Phosphorus Magnesium Total Bilirubin AST ALT Alkaline Phosphatase Total Protein Albumin 06/12/23 06/13/23 06/13/23 23:55 03:02 04:50 MCV 97.8 MCH 34.3 H MCHC 35.0 RDW 18.0 H Immature Gran % (Auto) 2.5 H Neut % (Auto) 86.9 H Lymph % (Auto) 3.2 L [place] % (Auto) 7.0 Eos % (Auto) 0.1 Baso % (Auto) 0.3 Lymph # (Auto) 0.5 L [place] # (Auto) 1.1 Eos # (Auto) 0.0 Baso # (Auto) 0.1 Abs Immat Gran (auto) 0.38 H Absolute Neuts (auto) 13.3 H Absolute Nucleated RBC 0.000 Nucleated RBC % (auto) 0.0 Smear Tech's Comments VERIFIED VBG pH VBG pCO2 VBG pO2 VBG HCO3 VBG O2 Saturation VBG Base Excess Anion Gap Estim Creat Clear Calc Estimated GFR POC Glucose 91 91 Random Glucose Calcium Phosphorus Magnesium Total Bilirubin AST ALT Alkaline Phosphatase Total Protein Albumin 06/13/23 06/13/23 04:50 04:52 MCV MCH MCHC RDW Immature Gran % (Auto) Neut % (Auto) Lymph % (Auto) [place] % (Auto) Eos % (Auto) Baso % (Auto) Lymph # (Auto) [place] # (Auto) Eos # (Auto) Baso # (Auto) Abs Immat Gran (auto) Absolute Neuts (auto) Absolute Nucleated RBC Nucleated RBC % (auto) Smear Tech's Comments VBG pH 7.40 VBG pCO2 40 VBG pO2 61 VBG HCO3 24 VBG O2 Saturation 88.0 VBG Base Excess 0.2 Anion Gap 13 Estim Creat Clear Calc 56.3 Estimated GFR 47 POC Glucose Random Glucose 92 Calcium 8.7 Phosphorus 3.6 Magnesium 2.3 Total Bilirubin 5.8 H AST 129 H ALT 41 H Alkaline Phosphatase 320 H Total Protein 7.4 Albumin 2.7 L Microbiology Microbiology Results: Microbiology 06/11/23 19:03 Blood Culture - Preliminary Blood - Venous No growth after 24 hours. 06/11/23 19:03 Blood Culture - Preliminary Blood - Venous Prelim: GNR Gram Stain only Procedures Date of Service Date of Service: 06/14/23 Progress Note: A&P Assessment and plan (1) Hepatocellular carcinoma: Status: Chronic Assessment and Plan: also with cirrhosis, likely endstage liver disease has had previous treatment with RFA large tumor seen on imaging (2) Right sided abdominal pain: Status: Acute Assessment and Plan: S/P IR cholecysttostomy tube for presumed acute cholecystitis drain bilious, nonpurulent IV abx on pressors low dose calculated MELD score - 24 Time Spent With Patient Time: Total time managing care of this patient today ____ minutes. Quality Stroke Does the patient have a stroke diagnosis?: No VTE Prior VTE?: No VTE Risk Level:: Medical - moderate - high VTE Device Contraindication: N/A - Device Ordered VTE Drug Contraindication: Treatment Not Indicated
[2023-06-13] MEDS: methADONE HCl 20 MG/2 ML ORAL.CONC 132 MG PO (09:34)
[2023-06-13] MEDS: Nicotine 21 MG PATCH.TD24 TRANSDERMA (09:35)
--- NOTE | 2023-06-13 09:35 | MHC.CLN ---
NUTRITION PATIENT CONTINUES NPO WITH BIPAP. CHOLECYSTECTOMY TUBE PLACED 06/12. FOLLOW WITH TEAM FOR DIET ADVANCEMENT. SEE CLINICAL NUTRITION ASSESSMENT 06/12/23.
[2023-06-13] MEDS: Norepinephrine Bitartrate/D5W 8 MG/250 ML PLAST..BAG 9.72 MG IV (10:59)
--- NOTE | 2023-06-13 11:02 | P.PNCC_ITS ---
Subjective Subjective Date of Service: 06/12/23 Interval History: 63-year-old male cirrhotic in part and alcohol related in part he had hepatitis- C which was treated last viral load was undetectable but he also has a recurrent mass which I which historically was a hepatocellular carcinoma presents with abdominal pain anorexia nausea vomiting but no diarrhea and abdomen of course was tight quite distended and diffusely tender with no bowel sounds and my review of the CT scan did not show that much of an ileus he did not really have air-fluid levels are terribly distended small or large bowel but he did have a distended thick-walled gallbladder possible trace of fluid bend very very small trace of a [place] fluid in the abdomen no pancreatic inflammation and there was no evidence of significant mesenteric stranding and the other problem was that he he also had acute hypoxic respiratory failure and apparently it always improves with the use of BiPAP when he is able to enhance his inspiratory tidal volume and that might be because of the unfavorable diaphragmatic position due t o the markedly distended abdomen that he has but the gallbladder in the right upper quadrant clearly has a thickened wall and a lot of sludge make it is very suspicious for an acalculous cholecystitis needle possibly as the etiology of his abdominal problems rather than spontaneous bacterial peritonitis which also is not impossible but his urine output is marginally preserved Eventually did a CT scan of the chest and he has some bibasilar areas of atelectasis/infiltrate can not rule out the possibility that it could be some infectious contribution I had him seen by surgery who did agree with proceeding with a cholecystostomy tube and I sent him over to Interventional Radiology for CT-guided placement of a drain which work successfully and a large volume and of presumably infected bile has been removed g stains and cultures pending and he is growing Gram- negative rods from his blood at least in 1/2 bottles I think the I think acalculous cholecystitis is the cause he is being well covered with meropenem and has and then adjunct of dose or synergistic dose of Levaquin was given Critical Care Time (minutes): 60 Physical Exam Vital Signs: Vital Signs: Last Vital Signs Temp 97.5 F 06/13/23 10:00 Pulse 77 06/13/23 10:00 Resp 14 06/13/23 10:00 BP 94/67 06/13/23 10:00 Pulse Ox 91 L 06/13/23 10:00 O2 Del Method BiPAP 06/13/23 10:00 O2 Flow Rate 3 06/12/23 15:00 FiO2 40 06/13/23 10:00 Oxygen Flow Rate 2 06/11/23 18:15 BMI result Body Mass Index 36.9 And he is awake still requires continuous BiPAP to keep her saturations in the 90s in sinus rhythm at in the 70s blood pressure is marginal 90s over mid 70s means are running in the low 70s Abdomen tightly distended diffusely tender with guarding is almost diffuse and bowel sounds are absent Lungs with minimal bibasilar rales Bedside cardiac exam with normal RV and LV size and function no primary valve or pericardial disease Objective Data Labs 06/13/23 04:50 06/13/23 04:50 Labs: Laboratory Results - last 24 hr 06/12/23 06/12/23 06/12/23 19:12 19:36 19:46 WBC RBC Hgb Hct MCV MCH MCHC RDW Immature Gran % (Auto) Neut % (Auto) Lymph % (Auto) [place] % (Auto) Eos % (Auto) Baso % (Auto) Lymph # (Auto) [place] # (Auto) Eos # (Auto) Baso # (Auto) Abs Immat Gran (auto) Absolute Neuts (auto) Absolute Nucleated RBC Nucleated RBC % (auto) Smear Tech's Comments VBG pH 7.35 VBG pCO2 47 VBG pO2 45 VBG HCO3 26 VBG O2 Saturation 67.0 VBG Base Excess 0.7 Sodium Potassium Chloride Carbon Dioxide Anion Gap BUN Creatinine Estim Creat Clear Calc Estimated GFR POC Glucose 62 140 H Random Glucose Calcium Phosphorus Magnesium Total Bilirubin AST ALT Alkaline Phosphatase Total Protein Albumin 06/12/23 06/13/23 06/13/23 23:55 03:02 04:50 WBC 15.3 H RBC 3.59 L Hgb 12.3 L Hct 35.1 L MCV 97.8 MCH 34.3 H MCHC 35.0 RDW 18.0 H Immature Gran % (Auto) 2.5 H Neut % (Auto) 86.9 H Lymph % (Auto) 3.2 L [place] % (Auto) 7.0 Eos % (Auto) 0.1 Baso % (Auto) 0.3 Lymph # (Auto) 0.5 L [place] # (Auto) 1.1 Eos # (Auto) 0.0 Baso # (Auto) 0.1 Abs Immat Gran (auto) 0.38 H Absolute Neuts (auto) 13.3 H Absolute Nucleated RBC 0.000 Nucleated RBC % (auto) 0.0 Smear Tech's Comments VERIFIED VBG pH VBG pCO2 VBG pO2 VBG HCO3 VBG O2 Saturation VBG Base Excess Sodium Potassium Chloride Carbon Dioxide Anion Gap BUN Creatinine Estim Creat Clear Calc Estimated GFR POC Glucose 91 91 Random Glucose Calcium Phosphorus Magnesium Total Bilirubin AST ALT Alkaline Phosphatase Total Protein Albumin 06/13/23 06/13/23 04:50 04:52 WBC RBC Hgb Hct MCV MCH MCHC RDW Immature Gran % (Auto) Neut % (Auto) Lymph % (Auto) [place] % (Auto) Eos % (Auto) Baso % (Auto) Lymph # (Auto) [place] # (Auto) Eos # (Auto) Baso # (Auto) Abs Immat Gran (auto) Absolute Neuts (auto) Absolute Nucleated RBC Nucleated RBC % (auto) Smear Tech's Comments VBG pH 7.40 VBG pCO2 40 VBG pO2 61 VBG HCO3 24 VBG O2 Saturation 88.0 VBG Base Excess 0.2 Sodium 135 Potassium 4.3 Chloride 103 Carbon Dioxide 23 Anion Gap 13 BUN 51 H Creatinine 1.52 H Estim Creat Clear Calc 56.3 Estimated GFR 47 POC Glucose Random Glucose 92 Calcium 8.7 Phosphorus 3.6 Magnesium 2.3 Total Bilirubin 5.8 H AST 129 H ALT 41 H Alkaline Phosphatase 320 H Total Protein 7.4 Albumin 2.7 L Microbiology Microbiology Results: Microbiology 06/11/23 19:03 Blood - Venous Blood Culture - Preliminary No growth after 24 hours. 06/11/23 19:03 Blood - Venous Blood Culture - Preliminary Prelim: GNR Gram Stain only Progress Note: A&P Assessment and plan (1) Right sided abdominal pain: Status: Acute (2) Hypotension: Status: Acute (3) Hypoxemia: Status: Acute (4) Acute hyponatremia: Status: Acute (5) Acute kidney injury: Status: Acute (6) Acute UTI: Status: Acute (7) Elevated LFTs: Status: Acute (8) Pulmonary hypertension: Status: Acute (9) Right ventricular enlargement: Status: Acute (10) PFO (patent foramen ovale): Status: Acute (11) Hepatic encephalopathy: Status: Acute (12) Portal vein thrombosis: Status: Acute (13) Abnormal CT scan, chest: Status: Acute (14) Cirrhosis of liver: Status: Acute (15) IVDU (intravenous drug user): Status: Acute (16) Acute acalculous cholecystitis: Status: Acute (17) Gram-negative sepsis: Status: Acute Plan And he was fluid bolused and started on combination of low-dose vasopressin as well as Levophed with a comfortably maintain pressure in BiPAP support for his breathing covered with meropenem and currently has a cholecystostomy drain which hopefully will give a source control Quality Stroke Does the patient have a stroke diagnosis?: No VTE Prior VTE?: No VTE Risk Level:: Medical - moderate - high VTE Device Contraindication: N/A - Device Ordered VTE Drug Contraindication: Treatment Not Indicated
[2023-06-13] MEDS: KCl 20 mEq in 5% Dex/0.45% Sod 20 MEQ/1,000 ML IV.SOLN 80 MEQ IVCONT ×2 (11:18→23:28)
[2023-06-13] MEDS: Albumin Human 25 % 100 ML IV ×4 (11:21→21:49)
[2023-06-13 12:00] LABS: Glucose, Whole Blood 84 mg/dL (60-115)
[2023-06-13] MEDS: Ketorolac Tromethamine 15 MG/ML VIAL IVPUSH ×2 (12:23→18:22)
[2023-06-13] MEDS: Vasopressin 20 UNIT/100 ML INFUS..BTL 12 UNIT IV ×2 (12:53→20:08)
[2023-06-13 13:38] LABS: Appearance Urine Turbid; Color Urine Dark Yellow; Glucose Urine UA Negative (Negative); Leukocyte Esterase Urine Negative (Negative); Nitrite Urine Negative (Negative); Specific Gravity - Urine 1.025 (1.005-1.025); UMIC TRIGGER UA YES; Urine Blood Moderate (2+) (Negative); Urine Ketones Negative (Negative); Urine Protein 30 (1+) mg/dL (Neg-Trace)
[2023-06-13 13:39] LABS: Lactate Dehydrogenase 263 U/L (118-273)
[2023-06-13 13:43] LABS: Bacteria Urine None Seen (None Seen); Hyaline Casts Urine 0-2 /LPF (0-2); RBC Urine >20 /HPF (0-2); Squamous Epithelial Cell Urine 0-2 /HPF (0-2); WBC Urine 0-5 /HPF (0-5)
[2023-06-13] MEDS: Albumin Human 25 % 100 ML 133.33 ML IV ×2 (13:55→14:51)
[2023-06-13 18:10] LABS: Glucose, Whole Blood 121 mg/dL (60-115)
[2023-06-13 21:03] LABS: Anion Gap 13 (12-20); Blood Urea Nitrogen 53 mg/dL (9-16); Calcium 7.5 mg/dL (8.4-10.2); Carbon Dioxide 22 mmol/L (22-29); Chloride 105 mmol/L (96-108); Creatinine Clr Calc Pharmacy 47.3; Estimated Glomerular Filt Rate 38; Glucose Random 258 mg/dL (60-115); Potassium 4.8 mmol/L (3.3-5.1); Sodium 135 mmol/L (135-145)
[2023-06-14] VITALS (44 sets, daily range): BP systolic 88–138; BP diastolic 57–111; PULSE 67–92; RESP 10–35; TEMP 35.8–36.6; O2SAT 90–96; BMI 37.5
[2023-06-14] MEDS: Ketorolac Tromethamine 15 MG/ML VIAL IVPUSH ×2 (00:14→05:35)
[2023-06-14 00:21] LABS: Glucose, Whole Blood 145 mg/dL (60-115)
[2023-06-14] MEDS: Morphine Sulfate 4 MG/ML CARTRIDGE IVPUSH ×6 (02:17→21:42)
[2023-06-14] MEDS: Vasopressin 20 UNIT/100 ML INFUS..BTL 12 UNIT IV ×3 (03:14→19:41)
[2023-06-14] MEDS: Norepinephrine Bitartrate/D5W 8 MG/250 ML PLAST..BAG 5.83 MG IV (03:55)
[2023-06-14 04:44] LABS: VBG Base Excess -1.2 mmol/L; VBG HCO3 25 mmol/L (22-26); VBG pCO2 47 mmHg; VBG pH 7.32 (7.32-7.43); VBG pO2 82 mmHg
[2023-06-14 04:45] LABS: Venous Blood Gas Refer to POC result
[2023-06-14 04:50] LABS: MANUAL DIFF FLAG NO
[2023-06-14 04:55] LABS: Basophils Percent Auto 0.2 % (0-2); Eosinophils Percent Auto 0.2 % (0-4); Hematocrit 29.3 % (42.0-52.0); Hemoglobin 10.1 g/dl (14.0-18.0); Imm Gran Abs Auto 0.46 X10*3/uL (0.00-0.03); Imm Gran Pct Auto 3.1 % (0.0-0.4); Lymphocytes Absolute Auto 0.4 X10*3/uL (1.2-4.9); Lymphocytes Percent Auto 2.6 % (20-40); Mean Corpuscular HGB Conc 34.5 g/dl (31.0-36.0); Mean Corpuscular Volume 98.7 fL (80.0-98.0); Mean Platelet Volume 11.8 fL (9.4-12.4); Monocytes Absolute Auto 0.9 X10*3/uL (0.1-1.2); Monocytes Percent Auto 5.9 % (2-11); Neutrophils Absolute Auto 12.9 x10*3/uL (2.0-8.3); Platelet Count 106 X10*3/uL (160-400); Red Blood Count 2.97 X10*6/uL (4.60-5.80); Red Cell Distribution Width 18.2 % (11.0-16.0); White Blood Count 14.7 X10*3/uL (4.8-10.8)
[2023-06-14 05:09] LABS: Alanine Aminotransferase 30 U/L (0-40); Albumin Level 3.8 g/dL (3.5-5.0); Alkaline Phosphatase 225 U/L (39-117); Anion Gap 13 (12-20); Aspartate Amino Transferase 90 U/L (5-37); Bilirubin Total 5.2 mg/dL (0.0-1.0); Blood Urea Nitrogen 57 mg/dL (9-16); Calcium 8.4 mg/dL (8.4-10.2); Carbon Dioxide 22 mmol/L (22-29); Chloride 102 mmol/L (96-108); Creatinine Clr Calc Pharmacy 44.1; Estimated Glomerular Filt Rate 35; Glucose Random 201 mg/dL (60-115); Magnesium 2.3 mg/dL (1.6-2.6); Phosphorus 3.7 mg/dL (2.7-4.5); Potassium 4.3 mmol/L (3.3-5.1); Sodium 133 mmol/L (135-145); Total Protein 7.4 g/dL (6.5-8.0)
[2023-06-14] MEDS: Pantoprazole Sodium 40 MG/10 ML VIAL IVPUSH (05:36)
[2023-06-14] MEDS: levoFLOXacin/D5W 500 MG/100 ML PIGGYBACK 100 MG IV (06:06)
[2023-06-14] MEDS: Albuterol/Iprat 2.5/0.5MG 3 ML AMPUL.NEB INHALE ×4 (08:10→23:37)
[2023-06-14] MEDS: Nicotine 21 MG PATCH.TD24 TRANSDERMA (08:56)
[2023-06-14] MEDS: Enoxaparin Sodium 40 MG/0.4 ML SYRINGE SUBCUT (08:56)
[2023-06-14] MEDS: methADONE HCl 20 MG/2 ML ORAL.CONC 132 MG PO (08:56)
--- NOTE | 2023-06-14 10:54 | PM.PNGS ---
Subjective Subjective Date of Service: 06/17/23 Interval history: still on BIPAP says abdl pain better Physical Exam Vital Signs: Vital Signs: Last Vital Signs Temp 96.6 F L 06/14/23 10:00 Pulse 92 06/14/23 10:00 Resp 32 H 06/14/23 10:18 BP 108/90 H 06/14/23 10:00 Pulse Ox 92 06/14/23 10:00 O2 Del Method BiPAP 06/14/23 10:00 O2 Flow Rate 4 06/13/23 14:51 FiO2 50 06/14/23 10:00 Oxygen Flow Rate 2 06/11/23 18:15 BMI result Body Mass Index 37.5 Const: Other: on BIPAP some SOB Resp: Other: some SOB Cardio: Rate: tachycardic GI: Other: drain in place, bilious, abd soft although distended Palpation (GI): no guarding and No Rebound tenderness present Objective Data Active Medications Albuterol/Ipratropium (Albuterol/Iprat 2.5/0.5mg 3 Ml Ampul.Neb) 3 ml INHALE RQ4H WHILE AWAKE [facility] Last Admin: 06/14/23 08:10 Dose: 3 ml Documented By: MARY Enoxaparin Sodium (Enoxaparin Sodium 40 Mg/0.4 Ml Syringe) 40 mg SUBCUT Q24H [facility] Last Admin: 06/14/23 08:56 Dose: 40 mg Documented By: SHI Meropenem 1 gm/ Sodium (Chloride) 100 mls @ 200 mls/hr IV Q8H [facility] Last Infusion: 06/14/23 04:35 Dose: 0 mls/hr Documented By: KULWANT Vasopressin (Vasostrict) 20 unit in 100 mls @ 12 mls/hr IV .Q8H20M [facility] Last Admin: 06/14/23 03:14 Dose: 0.04 unit/min, 12 mls/hr Documented By: KULWANT Dextrose (D10) 250 mls @ 500 mls/hr IV Q4H PRN PRN Reason: per Hypoglycemia Standing Ord. Norepinephrine Bitartrate (Levophed) 8 mg in 250 mls @ 0 mls/hr IV .Q0M [facility]; Protocol Last Titration: 06/14/23 06:06 Dose: 0 mcg/kg/min, 0 mls/hr Documented By: KULWANT Potassium Chloride/Dextrose/Sod Cl (Kcl 20 Meq In 5% Dex/0.45% Sod) 20 meq in 1,000 mls @ 80 mls/hr IVCONT .[id number] [facility] Last Admin: 06/13/23 23:28 Dose: 80 mls/hr Documented By: KULWANT Methadone HCl (Methadone Hcl 20 Mg/2 Ml Oral.Conc) 132 mg PO DAILY [facility] Last Admin: 06/14/23 08:56 Dose: 132 mg Documented By: SHI Morphine Sulfate (Morphine Sulfate 4 Mg/Ml Cartridge) 4 mg IVPUSH Q4H [facility]; Protocol Last Admin: 06/14/23 10:03 Dose: 4 mg Documented By: SHI Nicotine (Nicotine 21 Mg Patch.Td24) 21 mg TRANSDERMA DAILY [facility] Last Admin: 06/14/23 08:56 Dose: 21 mg Documented By: SHI Pantoprazole Sodium (Pantoprazole Sodium 40 Mg/10 Ml Vial) 40 mg IVPUSH DAILY@0630 [facility] Last Admin: 06/14/23 05:36 Dose: 40 mg Documented By: KULWANT Labs 06/14/23 04:36 06/14/23 04:36 Labs: Laboratory Results - last 24 hr 06/13/23 06/13/23 06/13/23 11:57 13:13 13:19 MCV MCH MCHC RDW Plt Count MPV Immature Gran % (Auto) Neut % (Auto) Lymph % (Auto) [place] % (Auto) Eos % (Auto) Baso % (Auto) Lymph # (Auto) [place] # (Auto) Eos # (Auto) Baso # (Auto) Abs Immat Gran (auto) Absolute Neuts (auto) Absolute Nucleated RBC Nucleated RBC % (auto) VBG pH VBG pCO2 VBG pO2 VBG HCO3 VBG O2 Saturation VBG Base Excess Anion Gap Estim Creat Clear Calc Estimated GFR POC Glucose 84 Random Glucose Calcium Phosphorus Magnesium Total Bilirubin AST ALT Alkaline Phosphatase Lactate Dehydrogenase 263 Total Creatine Kinase 35 L Total Protein Albumin Urine Color Dark Yellow Urine Appearance Turbid Urine pH 5.0 Ur Specific [place] 1.025 Urine Protein 30 (1+) H Urine Glucose (UA) Negative Urine Ketones Negative Urine Blood Moderate (2+) H Urine Nitrite Negative Ur Leukocyte Esterase Negative Urine RBC >20 H Urine WBC 0-5 Ur Squamous Epith Cells 0-2 Urine Bacteria None Seen Hyaline Casts 0-2 Ur Random Sodium 06/13/23 06/13/23 06/13/23 13:19 18:07 20:40 MCV MCH MCHC RDW Plt Count MPV Immature Gran % (Auto) Neut % (Auto) Lymph % (Auto) [place] % (Auto) Eos % (Auto) Baso % (Auto) Lymph # (Auto) [place] # (Auto) Eos # (Auto) Baso # (Auto) Abs Immat Gran (auto) Absolute Neuts (auto) Absolute Nucleated RBC Nucleated RBC % (auto) VBG pH VBG pCO2 VBG pO2 VBG HCO3 VBG O2 Saturation VBG Base Excess Anion Gap 13 Estim Creat Clear Calc 47.3 Estimated GFR 38 POC Glucose 121 H Random Glucose 258 H Calcium 7.5 L D Phosphorus Magnesium Total Bilirubin AST ALT Alkaline Phosphatase Lactate Dehydrogenase Total Creatine Kinase Total Protein Albumin Urine Color Urine Appearance Urine pH Ur Specific [place] Urine Protein Urine Glucose (UA) Urine Ketones Urine Blood Urine Nitrite Ur Leukocyte Esterase Urine RBC Urine WBC Ur Squamous Epith Cells Urine Bacteria Hyaline Casts Ur Random Sodium 25.0 06/14/23 06/14/23 06/14/23 00:15 04:36 04:36 MCV 98.7 H MCH 34.0 H MCHC 34.5 RDW 18.2 H Plt Count 106 L MPV 11.8 Immature Gran % (Auto) 3.1 H Neut % (Auto) 88.0 H Lymph % (Auto) 2.6 L [place] % (Auto) 5.9 Eos % (Auto) 0.2 Baso % (Auto) 0.2 Lymph # (Auto) 0.4 L [place] # (Auto) 0.9 Eos # (Auto) 0.0 Baso # (Auto) 0.0 Abs Immat Gran (auto) 0.46 H Absolute Neuts (auto) 12.9 H Absolute Nucleated RBC 0.000 Nucleated RBC % (auto) 0.0 VBG pH VBG pCO2 VBG pO2 VBG HCO3 VBG O2 Saturation VBG Base Excess Anion Gap 13 Estim Creat Clear Calc 44.1 Estimated GFR 35 POC Glucose 145 H Random Glucose 201 H Calcium 8.4 D Phosphorus 3.7 Magnesium 2.3 Total Bilirubin 5.2 H AST 90 H ALT 30 Alkaline Phosphatase 225 H Lactate Dehydrogenase Total Creatine Kinase Total Protein 7.4 Albumin 3.8 Urine Color Urine Appearance Urine pH Ur Specific [place] Urine Protein Urine Glucose (UA) Urine Ketones Urine Blood Urine Nitrite Ur Leukocyte Esterase Urine RBC Urine WBC Ur Squamous Epith Cells Urine Bacteria Hyaline Casts Ur Random Sodium 06/14/23 04:39 MCV MCH MCHC RDW Plt Count MPV Immature Gran % (Auto) Neut % (Auto) Lymph % (Auto) [place] % (Auto) Eos % (Auto) Baso % (Auto) Lymph # (Auto) [place] # (Auto) Eos # (Auto) Baso # (Auto) Abs Immat Gran (auto) Absolute Neuts (auto) Absolute Nucleated RBC Nucleated RBC % (auto) VBG pH 7.32 VBG pCO2 47 VBG pO2 82 VBG HCO3 25 VBG O2 Saturation 95.0 VBG Base Excess -1.2 Anion Gap Estim Creat Clear Calc Estimated GFR POC Glucose Random Glucose Calcium Phosphorus Magnesium Total Bilirubin AST ALT Alkaline Phosphatase Lactate Dehydrogenase Total Creatine Kinase Total Protein Albumin Urine Color Urine Appearance Urine pH Ur Specific [place] Urine Protein Urine Glucose (UA) Urine Ketones Urine Blood Urine Nitrite Ur Leukocyte Esterase Urine RBC Urine WBC Ur Squamous Epith Cells Urine Bacteria Hyaline Casts Ur Random Sodium Microbiology Microbiology Results: Microbiology 06/11/23 19:03 Blood Culture - Final Blood - Venous Escherichia coli 06/12/23 16:56 Gram Stain - Final Gallbladder Fluid Routine Culture - Preliminary Gram negative rafi 06/11/23 19:03 Blood Culture - Preliminary Blood - Venous No growth after 48 hours. 06/11/23 Unknown Urine Culture - Final Urine clean catch - Urine díaz top No growth. Procedures Date of Service Date of Service: 06/17/23 Progress Note: A&P Assessment and plan (1) Acute acalculous cholecystitis: Status: Acute Assessment and Plan: with IR drain in place antibiotics has cirrhosis, advanced liver disease with hepatocellular carcinoma requiring BIPAP ICU care no further surgical intervention planned Time Spent With Patient Time: Total time managing care of this patient today ____ minutes. Quality Stroke Does the patient have a stroke diagnosis?: No VTE Prior VTE?: No VTE Risk Level:: Medical - moderate - high VTE Device Contraindication: N/A - Device Ordered VTE Drug Contraindication: Treatment Not Indicated
--- NOTE | 2023-06-14 11:00 | MHC.CM.PN ---
Pt continues care in ICU following placement of a lana drainage tube. He is also on Bipap support. Initial d/c planning goals were for a return to home with new VNA and family support - it is unknown at this time if pt will be able to return home vs require STR for higher medical management needs. No STR referrals made at this time: CM to follow once pt is more clinically stable.
--- NOTE | 2023-06-14 11:16 | MHC.CLN ---
NUTRITION TRANSITIONED FROM BIPAP TO HIGH FLOW THIS AM. WHEN ABLE TO TAKE PO, RECOMMEND REGULAR DIET TOLERATED. MAY TAKE ENSURE TID IF DESIRED. PROVIDES 1050 KCALS, 60 G PROTEIN. FOLLOW WITH TEAM FOR DIET ADVANCEMENT.
[2023-06-14] MEDS: KCl 20 mEq in 5% Dex/0.45% Sod 20 MEQ/1,000 ML IV.SOLN 80 MEQ IVCONT (12:11)
[2023-06-14 12:59] LABS: Glucose, Whole Blood 118 mg/dL (60-115)
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
[2023-06-14] MEDS: Albumin Human 25 % 100 ML IV ×2 (13:30→14:45)
--- NOTE | 2023-06-14 17:54 | PC.NURSE ---
Patient on bipap 40% most of the day, was on Hi flow 45L 50% for one hour and was not tolerating it - going down to mid 80 and c/o of difficulty breathing. Doing well on bipap, sating 94-95%. Patient has been napping throughout the day, restless when awake. There is some swelling to the left arm, will continue monitor and keep arm elevated.
[2023-06-14 18:23] LABS: Glucose, Whole Blood 122 mg/dL (60-115)
[2023-06-14] MEDS: Lidocaine 4 % Patch ADH..PATCH 1 PATCH TRANSDERMA (23:34)
[2023-06-14] MEDS: Midazolam HCl/PF 2 MG/2 ML VIAL 1 MG IVPUSH (23:58)
[2023-06-15] VITALS (49 sets, daily range): BP systolic 87–147; BP diastolic 54–88; PULSE 63–103; RESP 12–30; TEMP 36–37.2; O2SAT 90–98; BMI 39.3
[2023-06-15] LABS: Glucose, Whole Blood 104 mg/dL (60-115)
[2023-06-15] MEDS: KCl 20 mEq in 5% Dex/0.45% Sod 20 MEQ/1,000 ML IV.SOLN 80 MEQ IVCONT (00:09)
[2023-06-15] MEDS: Morphine Sulfate 4 MG/ML CARTRIDGE IVPUSH ×3 (02:00→09:47)
[2023-06-15] MEDS: Vasopressin 20 UNIT/100 ML INFUS..BTL 12 UNIT IV (03:22)
[2023-06-15] MEDS: Morphine Sulfate 2 MG/ML CARTRIDGE IVPUSH (03:38)
[2023-06-15] MEDS: Ketamine HCl/NS 100 MG/10 ML SYRINGE 70 MG IVPUSH (05:34)
[2023-06-15 05:36] LABS: VBG Base Excess -2.6 mmol/L; VBG HCO3 24 mmol/L (22-26); VBG pCO2 50 mmHg; VBG pH 7.28 (7.32-7.43); VBG pO2 84 mmHg
[2023-06-15 05:39] LABS: Venous Blood Gas Refer to POC result
[2023-06-15] MEDS: Ketamine HCl 500 MG in 0.9 % Sodium Chloride 250 ML 5.37 MG IVCONT (05:55)
[2023-06-15] MEDS: Pantoprazole Sodium 40 MG/10 ML VIAL IVPUSH (06:09)
[2023-06-15 06:34] LABS: Basophils Absolute Auto 0.1 X10*3/uL (0.0-0.2); Basophils Percent Auto 0.3 % (0-2); Hematocrit 31.1 % (42.0-52.0); Hemoglobin 10.5 g/dl (14.0-18.0); Imm Gran Abs Auto 0.42 X10*3/uL (0.00-0.03); Imm Gran Pct Auto 1.9 % (0.0-0.4); Lymphocytes Absolute Auto 0.4 X10*3/uL (1.2-4.9); Lymphocytes Percent Auto 1.6 % (20-40); MANUAL DIFF FLAG SCAN; Mean Corpuscular HGB Conc 33.8 g/dl (31.0-36.0); Mean Corpuscular Hemoglobin 33.9 pg (27.0-33.0); Mean Corpuscular Volume 100.3 fL (80.0-98.0); Mean Platelet Volume 11.7 fL (9.4-12.4); Monocytes Absolute Auto 1.3 X10*3/uL (0.1-1.2); Monocytes Percent Auto 5.8 % (2-11); Neutrophils Absolute Auto 19.8 x10*3/uL (2.0-8.3); Neutrophils Percent Auto 90.4 % (45-73); Platelet Count 102 X10*3/uL (160-400); Red Cell Distribution Width 18.6 % (11.0-16.0); SCAN SMEAR FLAG 1; White Blood Count 21.9 X10*3/uL (4.8-10.8)
[2023-06-15 06:55] LABS: SLIDE REVIEW VERIFIED
[2023-06-15 06:56] LABS: Alanine Aminotransferase 26 U/L (0-40); Albumin Level 3.7 g/dL (3.5-5.0); Alkaline Phosphatase 224 U/L (39-117); Anion Gap 12 (12-20); Aspartate Amino Transferase 78 U/L (5-37); Bilirubin Total 5.7 mg/dL (0.0-1.0); Blood Urea Nitrogen 59 mg/dL (9-16); Calcium 8.4 mg/dL (8.4-10.2); Carbon Dioxide 23 mmol/L (22-29); Chloride 104 mmol/L (96-108); Creatinine Clr Calc Pharmacy 48.2; Estimated Glomerular Filt Rate 38; Glucose Random 121 mg/dL (60-115); Magnesium 2.3 mg/dL (1.6-2.6); Phosphorus 3.6 mg/dL (2.7-4.5); Potassium 4.9 mmol/L (3.3-5.1); Sodium 134 mmol/L (135-145); Total Protein 7.4 g/dL (6.5-8.0)
[2023-06-15] MEDS: Albuterol/Iprat 2.5/0.5MG 3 ML AMPUL.NEB INHALE ×4 (07:52→20:12)
[2023-06-15] MEDS: Nicotine 21 MG PATCH.TD24 TRANSDERMA (08:00)
[2023-06-15] MEDS: Enoxaparin Sodium 40 MG/0.4 ML SYRINGE SUBCUT (08:00)
[2023-06-15] MEDS: methADONE HCl 20 MG/2 ML ORAL.CONC 132 MG PO (08:56)
[2023-06-15] MEDS: Caspofungin Acetate 70 MG in 0.9 % Sodium Chloride 250 ML 250 MG IV (09:03)
[2023-06-15 09:15] LABS: Ammonia 54 umol/L (13-55)
[2023-06-15] MEDS: iohexoL 350 MG/ML 100 ML INFUS..BTL IV (09:52)
[2023-06-15] MEDS: vancomycin/NS 2,000 MG/500 ML PLAST..BAG 250 MG IV (11:33)
[2023-06-15 12:05] LABS: Glucose, Whole Blood 97 mg/dL (60-115)
[2023-06-15] MEDS: Rocuronium Bromide 50 MG/5 ML VIAL 80 MG IVPUSH (13:02)
[2023-06-15] MEDS: Midazolam HCl/NS 50 MG/50 ML PLAST..BAG IVCONT (13:03)
[2023-06-15] MEDS: Midazolam HCl/PF 2 MG/2 ML VIAL 4 MG IVPUSH (13:03)
[2023-06-15] MEDS: fentaNYL citrate/NS 1,000 MCG/100 ML PLAST..BAG 5 MCG IVCONT (13:15)
[2023-06-15] MEDS: Norepinephrine Bitartrate/D5W 8 MG/250 ML PLAST..BAG 36.94 MG IV (13:16)
--- NOTE | 2023-06-15 13:43 | PC.NURSE ---
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 pt and family consented. Ketamine wasted w/ ROSY Coronel. ETT 8, 22 at the lip
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
--- NOTE | 2023-06-15 15:24 | W.PM.CCHP ---
Procedures Date of Service Date of Service: 06/15/23 Central Line Placement Right IJ: Central Line Comments: Because of the combined pressors in the need for central venous pressure measurement replaced without complication a 20 cm triple-lumen central venous pressure catheter via the right internal jugular vein without complication After sterile preparation and draping and using ultrasound guidance gained easy entry to the right internal jugular vein passing retrograde with Seldinger technique a J tipped guidewire over which the triple-lumen catheter was placed documented to be in the right atrium by chest x-ray uncomplicated procedure for CVP measurement is 11 Consent for Procedure: Emergent-no informed consent obtained Time out performed: Yes Sterile Technique Used: Yes Patient placed on monitor/pulse ox: Yes prep: mask, gown and gloves Central line prep: Chlorhexidine scrub Local anesthesia used: lidocaine 1% Ultrasound used for placement: Yes Central line lumen inserted: triple Post procedure: sutured in place, good blood return, all ports aspirated, flushed, capped and sterile dressing applied Post procedure x-ray: tip of catheter in good position and no pneumothorax seen Patient tolerated procedure: well and no complications Complications: none
--- NOTE | 2023-06-15 15:27 | W.PM.CCHP ---
Procedures Date of Service Date of Service: 06/15/23 Intubation Intubation Comments: Due to what appears to be increasing aspiration via the noninvasive ventilator after explaining to the family with with all their consent and using fiberoptic guidance and with excellent visualization of the vocal cords in easy uncomplicated intubation with a 7.5 endotracheal tube at 22 cm at the lip was performed without complication chest x-ray shows just above the manuel for the for the tip Time out performed: Yes Sedative: versed Paralytic: rocuronium ET tube size: 7.5 ET tube uncuffed: No Tube secured depth (cm): 22 Intubation complications: none
[2023-06-15 18:07] LABS: Glucose, Whole Blood 71 mg/dL (60-115)
[2023-06-15] MEDS: Chlorhexidine Gluc Oral Rinse 15 ML MOUTHWASH BUCCAL (21:54)
[2023-06-15] MEDS: Norepinephrine Bitartrate/D5W 8 MG/250 ML PLAST..BAG 15.56 MG IV (23:57)
[2023-06-16] VITALS (36 sets, daily range): BP systolic 86–111; BP diastolic 46–81; PULSE 68–132; RESP 15–21; TEMP 36.3–37.5; O2SAT 92–94; BMI 39.3
[2023-06-16 00:27] LABS: Glucose, Whole Blood 53 mg/dL (60-115)
[2023-06-16] MEDS: Dextrose 50 % 25 GM/50 ML SYRINGE IVPUSH ×3 (00:29→20:29)
[2023-06-16 01:16] LABS: Glucose, Whole Blood 152 mg/dL (60-115)
[2023-06-16 01:16] LABS: Glucose, Whole Blood 124 mg/dL (60-115)
[2023-06-16 01:16] LABS: Glucose, Whole Blood 104 mg/dL (60-115)
[2023-06-16] MEDS: fentaNYL citrate/NS 1,000 MCG/100 ML PLAST..BAG 5 MCG IVCONT ×2 (02:58→20:39)
[2023-06-16] MEDS: Midazolam HCl/NS 50 MG/50 ML PLAST..BAG IVCONT (03:28)
[2023-06-16 04:53] LABS: Glucose, Whole Blood 85 mg/dL (60-115)
[2023-06-16 05:00] LABS: VBG Base Excess -2.1 mmol/L; VBG HCO3 23 mmol/L (22-26); VBG pCO2 44 mmHg; VBG pH 7.33 (7.32-7.43); VBG pO2 45 mmHg
[2023-06-16 05:01] LABS: Venous Blood Gas Refer to POC result
[2023-06-16] MEDS: Pantoprazole Sodium 40 MG/10 ML VIAL IVPUSH (05:15)
[2023-06-16 06:02] LABS: Alanine Aminotransferase 24 U/L (0-40); Albumin Level 3.1 g/dL (3.5-5.0); Alkaline Phosphatase 207 U/L (39-117); Anion Gap 15 (12-20); Aspartate Amino Transferase 85 U/L (5-37); Bilirubin Total 5.9 mg/dL (0.0-1.0); Blood Urea Nitrogen 66 mg/dL (9-16); Calcium 8.6 mg/dL (8.4-10.2); Carbon Dioxide 21 mmol/L (22-29); Chloride 105 mmol/L (96-108); Creatinine Clr Calc Pharmacy 44.5; Estimated Glomerular Filt Rate 34; Glucose Random 69 mg/dL (60-115); Magnesium 2.3 mg/dL (1.6-2.6); Phosphorus 3.3 mg/dL (2.7-4.5); Potassium 5.9 mmol/L (3.3-5.1); Sodium 135 mmol/L (135-145); Total Protein 7.3 g/dL (6.5-8.0)
[2023-06-16 06:49] LABS: Hematocrit 33.2 % (42.0-52.0); Hemoglobin 11.5 g/dl (14.0-18.0); Imm Gran Pct Auto 3.2 % (0.0-0.4); Mean Corpuscular HGB Conc 34.6 g/dl (31.0-36.0); Mean Corpuscular Hemoglobin 34.3 pg (27.0-33.0); Mean Corpuscular Volume 99.1 fL (80.0-98.0); Neutrophils Percent Auto 89.3 % (45-73); Red Blood Count 3.35 X10*6/uL (4.60-5.80); Red Cell Distribution Width 18.9 % (11.0-16.0); White Blood Count 26.3 X10*3/uL (4.8-10.8)
[2023-06-16 06:50] LABS: Basophils Absolute Auto 0.1 X10*3/uL (0.0-0.2); Basophils Percent Auto 0.4 % (0-2); Eosinophils Absolute Auto 0.1 X10*3/uL (0.0-0.4); Eosinophils Percent Auto 0.2 % (0-4); Imm Gran Abs Auto 0.83 X10*3/uL (0.00-0.03); Lymphocytes Absolute Auto 0.4 X10*3/uL (1.2-4.9); Lymphocytes Percent Auto 1.5 % (20-40); Monocytes Absolute Auto 1.4 X10*3/uL (0.1-1.2); Monocytes Percent Auto 5.4 % (2-11); NRBC Pct Auto 0.1 /100WBC (0.0-0.2); Neutrophils Absolute Auto 23.5 x10*3/uL (2.0-8.3)
[2023-06-16 06:51] LABS: MANUAL DIFF FLAG SCAN; SCAN SMEAR FLAG 1
[2023-06-16 07:19] LABS: Platelet Count 123 X10*3/uL (160-400)
[2023-06-16 07:20] LABS: SLIDE REVIEW VERIFIED
[2023-06-16 07:21] LABS: Albumin Level 3.1 g/dL (3.5-5.0); Anion Gap 12 (12-20); Blood Urea Nitrogen 67 mg/dL (9-16); Calcium 8.5 mg/dL (8.4-10.2); Carbon Dioxide 23 mmol/L (22-29); Chloride 104 mmol/L (96-108); Estimated Glomerular Filt Rate 32; Glucose Random 78 mg/dL (60-115); Magnesium 2.3 mg/dL (1.6-2.6); Phosphorus 3.4 mg/dL (2.7-4.5); Potassium 5.4 mmol/L (3.3-5.1); Sodium 134 mmol/L (135-145)
[2023-06-16 08:02] LABS: Glucose, Whole Blood 71 mg/dL (60-115)
[2023-06-16] MEDS: Albuterol/Iprat 2.5/0.5MG 3 ML AMPUL.NEB INHALE ×4 (08:30→19:22)
[2023-06-16] MEDS: Nicotine 21 MG PATCH.TD24 TRANSDERMA (08:32)
[2023-06-16] MEDS: Chlorhexidine Gluc Oral Rinse 15 ML MOUTHWASH BUCCAL ×3 (08:32→20:30)
[2023-06-16] MEDS: Enoxaparin Sodium 40 MG/0.4 ML SYRINGE SUBCUT (08:32)
--- NOTE | 2023-06-16 08:38 | MHC.CLN ---
NUTRITION CONSULT FOR TPN. 06/15 PATIENT INTUBATED, TUBE FEEDING STARTED VIA OGT, CENTRAL LINE PLACED. DID NOT TOLERATE TUBE FEEDING, OSMOLITE 1.5 AT 20 ML PER HOUR AND TF HELD. TUBE FEED RESTARTED THIS MORNING, OSMOLITE 1.5 AT RATE OF 10 ML PER HOUR. IF TOLERATED, PROVIDES 360 KCALS X 24 HOURS. FOR TPN, RECOMMEND START D15AA5 AT 30 ML PER HOUR. PROVIDES 108 G DEXTROSE, 36 G PROTEIN. NO LIPIDS. REPLETE LYTES NEEDED. CHECK TRIGLYCERIDES. WILL MONITOR CLOSELY FOR TUBE FEED TOLERANCE AND TPN ADVANCEMENT.
--- NOTE | 2023-06-16 09:08 | PHA.PROG ---
Admission Date/Time: June 12, 2023 02:15 Indication: OTHER Weight in k.5 kg Adjusted body weight in Kg: [place] body weight in Kg: Obesity Dosing Indication % IBW: 39.3 Serum Creatinine - Last 168 Hours 06/11/23 06/12/23 06/12/23 19:03 00:16 04:56 Creatinine 2.00 H 1.67 H 1.67 H 06/13/23 06/13/23 06/14/23 04:50 20:40 04:36 Creatinine 1.52 H 1.80 H 1.93 H 06/15/23 06/16/23 06/16/23 05:30 04:46 06:56 Creatinine 1.83 H 1.98 H 2.10 H Estimated CrCl and GFR - Last 168 Hours 06/11/23 06/12/23 06/12/23 19:03 00:16 04:56 Estim Creat Clear Calc 41.8 50.0 51.3 Estimated GFR 34 42 42 06/13/23 06/13/23 06/14/23 04:50 20:40 04:36 Estim Creat Clear Calc 56.3 47.3 44.1 Estimated GFR 47 38 35 06/15/23 06/16/23 06/16/23 05:30 04:46 06:56 Estim Creat Clear Calc 48.2 44.5 42.0 Estimated GFR 38 34 32 Vancomycin Loading Dose: 2000 MG Current Vancomycin Dosing Regimen: 1000 MG Q24 Vancomycin Monitoring using AUC goal of 400 - 600 range with trough as surrogate marker:474 Date and Time for next Vancomycin Level to be drawn:06/17 @0800 Pharmacist Comments on Vancomycin Plan: DUE TO POOR RENAL FUNCTION, STARTING WITH 1000 Q24 FOR DOSING AND WILL RECHECK BEFORE 3RD DOSE TO ENSURE PT IS CLEARING MEDICATION AND RENAL FUNCTION IS NOT GETTING WORSE. Vancomycin dosing will take advantage of [employer] as a clinical decision support tool that uses Bayesian modeling to calculate individual patient's pharmacokinetic parameters and forecast the patient's drug concentration time course with the target goal AUC 24 range of 400 - 600 mg/L/hr.
[2023-06-16] MEDS: Lactulose 20 GM/30 ML SOLUTION PO (09:20)
[2023-06-16] MEDS: Milk of Magnesia 30 ML ORAL.SUSP PO (09:20)
[2023-06-16] MEDS: vancomycin HCL 1,000 MG in 0.9 % Sodium Chloride 250 ML 270 MG IV ×2 (09:21→22:52)
[2023-06-16] MEDS: Caspofungin Acetate 50 MG in 0.9 % Sodium Chloride 250 ML 250 MG IV (10:10)
[2023-06-16 12:15] LABS: Glucose, Whole Blood 57 mg/dL (60-115)
[2023-06-16] MEDS: Albumin Human 25 % 100 ML IV ×2 (12:35→13:36)
[2023-06-16 12:53] LABS: Glucose, Whole Blood 121 mg/dL (60-115)
[2023-06-16 13:09] LABS: MRSA Nasal PCR NEGATIVE (Negative); SA Nasal PCR POSITIVE (Negative)
[2023-06-16 13:59] LABS: Rheumatoid Factor < 13.0 IU/mL (<15.0)
[2023-06-16] MEDS: Digoxin 0.5 MG/2 ML AMPUL 0.25 MG IVPUSH ×3 (14:03→17:07)
[2023-06-16 16:00] LABS: Glucose, Whole Blood 67 mg/dL (60-115)
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
[2023-06-16] MEDS: Dextrose 10 % 1,000 ML 20 ML IVCONT (17:03)
[2023-06-16] MEDS: Midazolam HCl/PF 2 MG/2 ML VIAL 3 MG IVPUSH (17:07)
[2023-06-16] MEDS: Norepinephrine Bitartrate/D5W 8 MG/250 ML PLAST..BAG 11.67 MG IV (17:31)
[2023-06-16] MEDS: Rocuronium Bromide 50 MG/5 ML VIAL 80 MG IVPUSH (17:39)
--- NOTE | 2023-06-16 17:55 | PC.NURSE ---
Addendum entered by Yosef Peña RN 06/16/23 18:23: pt converted to SR 80s Original Note: Pt converted from SR 70s to afib up to 140s. MD informed. Dig given w/ little to no effect. Pt shocked twice first at 75J then 100J w/ - effect, MD was at bedside. Intra-abd pressure obtained while MD at bedside, found to be around 28. IVP FREDRICK administered and intra-abd pressure reassessed at 20, md informed. Levo being titrated per protocol and md order of SBP goal >90 and MAP goal >65. TF on hold as ordered d/t high residual. laxatives administered as ordered d/t no BM for multiple days. informed multiple times of pt's hypoglycemia. D50 administered w/ + effect. fluids started as ordered. Family updated by MD at bedside this evening.
[2023-06-16 20:11] LABS: Glucose, Whole Blood 62 mg/dL (60-115)
[2023-06-16] MEDS: Parenteral Nutrition 720 ML 30 ML IV (20:30)
[2023-06-16 21:05] LABS: Glucose, Whole Blood 138 mg/dL (60-115)
[2023-06-17] VITALS (28 sets, daily range): BP systolic 0–114; BP diastolic 0–77; PULSE 0–84; RESP 0–19; TEMP 36.9–37.4; O2SAT 0–93; BMI 39.7
[2023-06-17 00:42] LABS: Glucose, Whole Blood 116 mg/dL (60-115)
[2023-06-17 04:38] LABS: VBG Base Excess -5.3 mmol/L; VBG HCO3 20 mmol/L (22-26); VBG pCO2 42 mmHg; VBG pH 7.29 (7.32-7.43); VBG pO2 76 mmHg
[2023-06-17 04:40] LABS: Venous Blood Gas Refer to POC result
[2023-06-17 04:41] LABS: Basophils Absolute Auto 0.1 X10*3/uL (0.0-0.2); Basophils Percent Auto 0.5 % (0-2); Eosinophils Absolute Auto 0.1 X10*3/uL (0.0-0.4); Eosinophils Percent Auto 0.2 % (0-4); Hematocrit 33.5 % (42.0-52.0); Hemoglobin 11.4 g/dl (14.0-18.0); Imm Gran Abs Auto 1.22 X10*3/uL (0.00-0.03); Imm Gran Pct Auto 4.6 % (0.0-0.4); Lymphocytes Absolute Auto 0.5 X10*3/uL (1.2-4.9); Lymphocytes Percent Auto 1.8 % (20-40); MANUAL DIFF FLAG SCAN; Mean Corpuscular Hemoglobin 34.2 pg (27.0-33.0); Mean Corpuscular Volume 100.6 fL (80.0-98.0); Mean Platelet Volume 11.1 fL (9.4-12.4); Monocytes Absolute Auto 1.5 X10*3/uL (0.1-1.2); Monocytes Percent Auto 5.7 % (2-11); NRBC Pct Auto 0.1 /100WBC (0.0-0.2); Neutrophils Absolute Auto 22.9 x10*3/uL (2.0-8.3); Neutrophils Percent Auto 87.2 % (45-73); Platelet Count 135 X10*3/uL (160-400); Red Blood Count 3.33 X10*6/uL (4.60-5.80); Red Cell Distribution Width 19.5 % (11.0-16.0); SCAN SMEAR FLAG 1; White Blood Count 26.3 X10*3/uL (4.8-10.8)
[2023-06-17 04:50] LABS: Glucose, Whole Blood 131 mg/dL (60-115)
[2023-06-17 05:01] LABS: SLIDE REVIEW VERIFIED
[2023-06-17 05:03] LABS: Alanine Aminotransferase 22 U/L (0-40); Albumin Level 3.3 g/dL (3.5-5.0); Alkaline Phosphatase 217 U/L (39-117); Anion Gap 14 (12-20); Aspartate Amino Transferase 105 U/L (5-37); Bilirubin Total 6.4 mg/dL (0.0-1.0); Blood Urea Nitrogen 79 mg/dL (9-16); Calcium 8.7 mg/dL (8.4-10.2); Carbon Dioxide 20 mmol/L (22-29); Chloride 105 mmol/L (96-108); Estimated Glomerular Filt Rate 20; Glucose Random 143 mg/dL (60-115); Magnesium 2.4 mg/dL (1.6-2.6); Phosphorus 4.7 mg/dL (2.7-4.5); Potassium 5.6 mmol/L (3.3-5.1); Sodium 133 mmol/L (135-145); Total Protein 6.9 g/dL (6.5-8.0); Triglycerides 61 mg/dL (<150)
[2023-06-17] MEDS: Midazolam HCl/NS 50 MG/50 ML PLAST..BAG IVCONT (05:56)
[2023-06-17] MEDS: Pantoprazole Sodium 40 MG/10 ML VIAL IVPUSH (05:57)
[2023-06-17 08:02] LABS: Glucose, Whole Blood 141 mg/dL (60-115)
[2023-06-17] MEDS: Albuterol/Iprat 2.5/0.5MG 3 ML AMPUL.NEB INHALE ×2 (08:08→11:30)
[2023-06-17] MEDS: cefTRIAXone sodium 1 GM in 0.9 % Sodium Chloride 50 ML IV (08:43)
[2023-06-17] MEDS: Enoxaparin Sodium 40 MG/0.4 ML SYRINGE SUBCUT (08:44)
[2023-06-17] MEDS: Nicotine 21 MG PATCH.TD24 TRANSDERMA (08:52)
[2023-06-17] MEDS: Lactulose 20 GM/30 ML SOLUTION PO (09:00)
[2023-06-17] MEDS: Chlorhexidine Gluc Oral Rinse 15 ML MOUTHWASH BUCCAL (09:00)
[2023-06-17 09:01] LABS: Vancomycin Random 28.5 mcg/mL (15-20)
[2023-06-17] MEDS: Norepinephrine Bitartrate/D5W 8 MG/250 ML PLAST..BAG 15.56 MG IV (09:49)
--- NOTE | 2023-06-17 10:09 | MHC.CLN ---
F/U PT REMAINS INTUBATED AND SEDATED NOT TOLERATING TUBE FEEDING AT THIS TIME-WILL CHANGE DIET TO NPO DISCUSSED AT ROUNDS WITH MD-PT MAY BE CHANGED TO STOCK MOVER PENDING FAMILY MEETING IF TPN TO CONTINUE, RECOMMEND INCREASING [id number] TO 50 ML PER HOUR TO PROVIDE 852KCALS, 180 G DEXTROSE, 60 G PROTEIN. HOLD LIPIDS DISCUSSED WITH PHARMACY; REPLETE LYTES NEEDED FOLLOWING WITH TEAM
[2023-06-17 12:11] LABS: Glucose, Whole Blood 148 mg/dL (60-115)
--- NOTE | 2023-06-17 12:32 | MHC.CM.PN ---
Pt continues on ventilatory support w/multiple organ failures. Pt has metastatic liver cancer. Family has been extensively briefed on pt's poor prognosis and are in the process of determining pt's plan of care - continuation of treatment vs [facility] OPERATOR. All discharge planning needs are temporarily on hold pending family's determination. CM to follow.
--- NOTE | 2023-06-17 13:09 | P.PNGS_ITS ---
Subjective Subjective Date of Service: 06/17/23 Interval history: On high-dose pressors Intubated, vent dependent Physical Exam Vital Signs: Vital Signs: Last Vital Signs Temp 98.4 F 06/17/23 13:00 Pulse 72 06/17/23 13:00 Resp 18 06/17/23 13:00 BP 95/57 L 06/17/23 13:00 Pulse Ox 93 06/17/23 13:00 O2 Del Method Mechanical Ventil ation 06/17/23 13:00 O2 Flow Rate 4 06/13/23 14:51 FiO2 80 06/17/23 13:00 Oxygen Flow Rate 2 06/11/23 18:15 BMI result Body Mass Index 39.7 Const: Other: Intubated, sedated Resp: Other: On ventilator GI: Other: Distended but soft no guarding Objective Data Active Medications Albuterol/Ipratropium (Albuterol/Iprat 2.5/0.5mg 3 Ml Ampul.Neb) 3 ml INHALE RQ4H WHILE AWAKE [facility] Last Admin: 06/17/23 11:30 Dose: 3 ml Documented By: MAICO Chlorhexidine Gluconate (Chlorhexidine Gluc Oral Rinse 15 Ml Mouthwash) 15 ml BUCCAL TID [facility] Last Admin: 06/17/23 09:00 Dose: 15 ml Documented By: KELLY Dextrose (Dextrose 50 % 25 Gm/50 Ml Syringe) 25 gm IVPUSH Q15M PRN PRN Reason: per Hypoglycemia Standing Ord. Last Admin: 06/16/23 12:39 Dose: 25 gm Documented By: YOLANDE Enoxaparin Sodium (Enoxaparin Sodium 40 Mg/0.4 Ml Syringe) 40 mg SUBCUT Q24H [facility] Last Admin: 06/17/23 08:44 Dose: 40 mg Documented By: KELLY Vasopressin (Vasostrict) 20 unit in 100 mls @ 12 mls/hr IV .Q8H20M [facility] Last Admin: 06/17/23 11:38 Dose: Not Given Documented By: KELLY Non-Admin Reason: Physician Held Med Dextrose (D10) 250 mls @ 500 mls/hr IV Q4H PRN PRN Reason: per Hypoglycemia Standing Ord. Norepinephrine Bitartrate (Levophed) 8 mg in 250 mls @ 0 mls/hr IV .Q0M [facility]; Protocol Last Titration: 06/17/23 12:46 Dose: 0.2 mcg/kg/min, 38.89 mls/hr Documented By: KELLY Fentanyl (Sublimaze/Ns) 1,000 mcg in 100 mls @ 0 mls/hr IVCONT .Q0M [facility]; Protocol Last Admin: 06/16/23 20:39 Dose: 50 mcg/hr, 5 mls/hr Documented By: JAMIE Nutrition (Parenteral) (Parenteral Nutrition) 720 mls @ 30 mls/hr IV .Q24H [facility]AYO; Protocol Stop: 06/17/23 20:59 Last Admin: 06/16/23 20:30 Dose: 30 mls/hr Documented By: JAMIE Dextrose (D10) 1,000 mls @ 20 mls/hr IVCONT .Q24H [facility] Last Admin: 06/16/23 17:03 Dose: 20 mls/hr Documented By: ESSENCE Ceftriaxone Sodium 1 gm/ (Sodium Chloride) 50 mls @ 100 mls/hr IV Q24H [facility] Last Infusion: 06/17/23 09:51 Dose: 0 mls/hr Documented By: KELLY Propofol (Diprivan) 1,000 mg in 100 mls @ 0 mls/hr IVCONT .Q0M [facility]; Protocol Nutrition (Parenteral) (Parenteral Nutrition) 1,200 mls @ 50 mls/hr IV .Q24H [facility]AYO; Protocol Stop: 06/18/23 20:59 Lactulose (Lactulose 20 Gm/30 Ml Solution) 20 gm PO DAILY [facility] Last Admin: 06/17/23 09:00 Dose: 20 gm Documented By: KELLY Naloxone HCl (Naloxone Hcl 0.4 Mg/Ml Vial) 0.2 mg IVPUSH Q2M PRN PRN Reason: Excessive sedation or RR < 8 Nicotine (Nicotine 21 Mg Patch.Td24) 21 mg TRANSDERMA DAILY [facility] Last Admin: 06/17/23 08:52 Dose: 21 mg Documented By: KELLY Pantoprazole Sodium (Pantoprazole Sodium 40 Mg/10 Ml Vial) 40 mg IVPUSH DAILY@0630 [facility] Last Admin: 06/17/23 05:57 Dose: 40 mg Documented By: JAMIE Pharmacy Consult (Consult Rx Parenteral Nutrition Ordering) 1 each MISCELLANE DAILY PRN PRN Reason: Consult order Labs 06/17/23 04:27 06/17/23 04:27 Labs: Laboratory Results - last 24 hr 06/15/23 06/16/23 06/16/23 15:25 13:22 15:56 MCV MCH MCHC RDW Plt Count MPV Immature Gran % (Auto) Neut % (Auto) Lymph % (Auto) [place] % (Auto) Eos % (Auto) Baso % (Auto) Lymph # (Auto) [place] # (Auto) Eos # (Auto) Baso # (Auto) Abs Immat Gran (auto) Absolute Neuts (auto) Absolute Nucleated RBC Nucleated RBC % (auto) Smear Tech's Comments VBG pH VBG pCO2 VBG pO2 VBG HCO3 VBG O2 Saturation VBG Base Excess Anion Gap Estim Creat Clear Calc Estimated GFR POC Glucose 67 Random Glucose Calcium Phosphorus Magnesium Total Bilirubin AST ALT Alkaline Phosphatase Total Protein Albumin Triglycerides Nasal Screen MRSA (PCR) NEGATIVE Nasal S. aureus Screen POSITIVE A Nasal MRSA/S.aureus Interp SEE NOTE Random Vancomycin Rheumatoid Factor < 13.0 06/16/23 06/16/23 06/17/23 20:04 21:01 00:21 MCV MCH MCHC RDW Plt Count MPV Immature Gran % (Auto) Neut % (Auto) Lymph % (Auto) [place] % (Auto) Eos % (Auto) Baso % (Auto) Lymph # (Auto) [place] # (Auto) Eos # (Auto) Baso # (Auto) Abs Immat Gran (auto) Absolute Neuts (auto) Absolute Nucleated RBC Nucleated RBC % (auto) Smear Tech's Comments VBG pH VBG pCO2 VBG pO2 VBG HCO3 VBG O2 Saturation VBG Base Excess Anion Gap Estim Creat Clear Calc Estimated GFR POC Glucose 62 138 H 116 H Random Glucose Calcium Phosphorus Magnesium Total Bilirubin AST ALT Alkaline Phosphatase Total Protein Albumin Triglycerides Nasal Screen MRSA (PCR) Nasal S. aureus Screen Nasal MRSA/S.aureus Interp Random Vancomycin Rheumatoid Factor 06/17/23 06/17/23 06/17/23 04:27 04:27 04:32 MCV 100.6 H MCH 34.2 H MCHC 34.0 RDW 19.5 H Plt Count 135 L MPV 11.1 Immature Gran % (Auto) 4.6 H Neut % (Auto) 87.2 H Lymph % (Auto) 1.8 L [place] % (Auto) 5.7 Eos % (Auto) 0.2 Baso % (Auto) 0.5 Lymph # (Auto) 0.5 L [place] # (Auto) 1.5 H Eos # (Auto) 0.1 Baso # (Auto) 0.1 Abs Immat Gran (auto) 1.22 H Absolute Neuts (auto) 22.9 H Absolute Nucleated RBC 0.020 H Nucleated RBC % (auto) 0.1 Smear Tech's Comments VERIFIED VBG pH 7.29 L VBG pCO2 42 VBG pO2 76 VBG HCO3 20 L VBG O2 Saturation 95.0 VBG Base Excess -5.3 Anion Gap 14 Estim Creat Clear Calc 28.0 Estimated GFR 20 POC Glucose Random Glucose 143 H Calcium 8.7 Phosphorus 4.7 H Magnesium 2.4 Total Bilirubin 6.4 H AST 105 H ALT 22 Alkaline Phosphatase 217 H Total Protein 6.9 Albumin 3.3 L Triglycerides 61 Nasal Screen MRSA (PCR) Nasal S. aureus Screen Nasal MRSA/S.aureus Interp Random Vancomycin Rheumatoid Factor 06/17/23 06/17/23 06/17/23 04:35 07:55 08:10 MCV MCH MCHC RDW Plt Count MPV Immature Gran % (Auto) Neut % (Auto) Lymph % (Auto) [place] % (Auto) Eos % (Auto) Baso % (Auto) Lymph # (Auto) [place] # (Auto) Eos # (Auto) Baso # (Auto) Abs Immat Gran (auto) Absolute Neuts (auto) Absolute Nucleated RBC Nucleated RBC % (auto) Smear Tech's Comments VBG pH VBG pCO2 VBG pO2 VBG HCO3 VBG O2 Saturation VBG Base Excess Anion Gap Estim Creat Clear Calc Estimated GFR POC Glucose 131 H 141 H Random Glucose Calcium Phosphorus Magnesium Total Bilirubin AST ALT Alkaline Phosphatase Total Protein Albumin Triglycerides Nasal Screen MRSA (PCR) Nasal S. aureus Screen Nasal MRSA/S.aureus Interp Random Vancomycin 28.5 H* Rheumatoid Factor 06/17/23 12:07 MCV MCH MCHC RDW Plt Count MPV Immature Gran % (Auto) Neut % (Auto) Lymph % (Auto) [place] % (Auto) Eos % (Auto) Baso % (Auto) Lymph # (Auto) [place] # (Auto) Eos # (Auto) Baso # (Auto) Abs Immat Gran (auto) Absolute Neuts (auto) Absolute Nucleated RBC Nucleated RBC % (auto) Smear Tech's Comments VBG pH VBG pCO2 VBG pO2 VBG HCO3 VBG O2 Saturation VBG Base Excess Anion Gap Estim Creat Clear Calc Estimated GFR POC Glucose 148 H Random Glucose Calcium Phosphorus Magnesium Total Bilirubin AST ALT Alkaline Phosphatase Total Protein Albumin Triglycerides Nasal Screen MRSA (PCR) Nasal S. aureus Screen Nasal MRSA/S.aureus Interp Random Vancomycin Rheumatoid Factor Microbiology Microbiology Results: Microbiology 06/15/23 13:16 Gram Stain - Final Sputum - Suctioned Sputum Culture - Preliminary Filamentous fungus 06/11/23 19:03 Blood Culture - Final Blood - Venous No growth after 5 days. Procedures Date of Service Date of Service: 06/17/23 Progress Note: A&P Assessment and plan (1) Acute acalculous cholecystitis: Status: Acute Assessment and Plan: Status post cystostomy tube by IR Scanty bilious output from the drain Now with multi organ failure Requiring high-dose pressors, ventilatory support Family wants comfort care measures only from here on Time Spent With Patient Time: Total time managing care of this patient today ____ minutes. Quality Stroke Does the patient have a stroke diagnosis?: No VTE Prior VTE?: No VTE Risk Level:: Medical - moderate - high VTE Device Contraindication: N/A - Device Ordered VTE Drug Contraindication: Treatment Not Indicated
--- NOTE | 2023-06-17 14:42 | PM.CCN ---
Critical Care Event Note Summary Date of Service: 06/17/23 Code activated: No Narrative: Overall poor prognosis for meaningful clinical recovery discussed with patient's family (both daughters) and decision has been reached to change code status to do not resuscitate. Code status changed. Family continues to discuss goals of care. Critical Care Time (minutes): 0
--- NOTE | 2023-06-17 14:53 | PM.CCN ---
Critical Care Event Note Summary Date of Service: 06/17/23 Code activated: No Narrative: Further family discussion about patient's clinical status and prognosis held by me and acura sales consultant surgeon. At this time patient's family decided to change goals of care to palliation. code status changed comfort measures only. Will proceed with terminal extubation. Critical Care Time (minutes): 0
[2023-06-17] MEDS: fentaNYL citrate/PF 100 MCG/2 ML VIAL IVPUSH (15:03)
[2023-06-17] MEDS: Midazolam HCl/PF 2 MG/2 ML VIAL IVPUSH (15:03)
[2023-06-17] MEDS: fentaNYL citrate/NS 1,000 MCG/100 ML PLAST..BAG 10 MCG IVCONT (15:08)
--- NOTE | 2023-06-17 15:24 | PM.DDS ---
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 Patient noted to have acute acalculus cholecystitis with cholangitis and gram-negative bacteremia requiring pressor support. Hospital course significant for progressive deterioration including respiratory decompensation secondary to abdominal compartment syndrome requiring intubation and ventilatory support. Patient was evaluated by General surgery and noted not to be a candidate for any procedure. Patient had cholecystostomy drain placed, however his clinical status continued to deteriorate including progression of abdominal compartment syndrome with development of acute renal failure and anuria. Multiple family meetings held to discuss patient's clinical status and overall very poor prognosis for clinically meaningful recovery. On family decided to switch goals of care to palliation. Code status was changed to comfort measures only and patient was terminal extubated. Patient passed in comfort with family at bedside on 06/17/2023 at 15:21. Additional Data Confirmation of as documented by pronouncing clinician: no pulse, no respirations, no heart sounds and pupils fixed and dilated Family: at bedside Attending physician: Manny Leggett MD
--- NOTE | 2023-06-17 16:29 | PC.NURSE ---
Assumed care of patient 07:00 10:00 MD discussed pt health status, prognosis with daughters of patient Barbara. Family states they will decide on plan of care together. 14:30 surgical MD to bedside, education provided to family on patient health status, metastatic liver cancer 14:45 pt daughters called RN to bedside and stated they want to make him comfortable. MD to bedside. MD Provided education on comfort measures, pain control, and terminal extubation. 14:50 new orders for code status change to [employer] 15:03 patient given 100 mcg fentanyl IVP, 2 mg versed IVP. Fentanyl gtt increased per MD to rate @100. 15:15 RT to bedside with RN. Education provided to family on extubation, option to stay with patient or waiting room. Per orders extubated patient 15:15. Oral suctioning provided. 15:21 MD pronouced time of . ICU Nurse hatchery manager notified. 15:47 [facility] contacted, declined patient.
[2023-06-17 21:37] LABS: Myeloperoxidase Antibody <1.0 AI; Proteinase 3 PR3 Antibodies <1.0 AI
[2023-06-18 14:54] LABS: Anti Nuclear Antibody Screen NEGATIVE (NEGATIVE)
[2023-06-19 12:03] LABS: IgA 486 mg/dL (70-320); IgG 1852 mg/dL (600-1540); IgM 111 mg/dL (50-300)
[2023-06-25 07:41] LABS: Cryoglobulin, Qual NONE DETECTED
--- NOTE | 2023-07-03 09:55 | P.CDIM_ITS ---
PROVIDER RESPONSE TEXT: To clarify, the appropriate diagnosis supported by the clinical indicators: Chronic respiratory failure with hypoxia QUERY TEXT: PHYSICIAN'S DOCUMENTATION REQUEST Date of Query: 07/03/2023 05:17 AM EDT Patient Name: Dequan Delgadillo Admit Date: 06/12/2023 Dear Manny Leggett, A review of the medical record indicates additional documentation may be needed. Please review below and update the documentation accordingly. Clinical Indicators: ED 06/11 - During the Ed stay patient became hypotensive and hypoxic placed on BIPAP given 4 liters NS Dyspnea on exertion, supplemental oxygen dependent, 40 year smoker with sleep apnea. RR 30 placed on 3 liters NC with pulse ox 91 & 89L ABG's completed ICU admission If possible, please further clarify the type and acuity of respiratory: Acute hypoxic respiratory failure Acute on chronic hypoxic respiratory failure Chronic respiratory failure with hypoxia Other please specify if known Other (explain)Clinically unable to determine (explain)Thank you, Taylro Pro, CCS, CDIS Use of terms such as suspected, likely, concern for, or probable (associated with a specific diagnosi s that is being evaluated, monitored, or treated as if it exists) are acceptable and can be coded in the inpatient se tting, when documented at the time of discharge. Please use your independent medical judgment in providing your response. THIS QUERY IS PART OF THE PERMANENT MEDICAL RECORD
== END 2023-06-17 19:45 | disposition expired | DRG 871 ==
LOC: HO.ED 06-12 02:06 → HO.EDOVER 06-12 02:23 → HO.ICU 06-12 02:32
PROVIDERS: Emergency Medicine; Internal Medicine Cardiovascular Disease; Radiology Diagnostic Radiology; Admitting Provider Nurse Practitioner Family; Emergency Provider Internal Medicine; PCP Internal Medicine Geriatric Medicine; Visit Provider Internal Medicine Pulmonary Disease
PROC: 0F9430Z Drainage of Gallbladder with Drainage Device, Percutaneous Approach (ICD-10-PCS; principal; 2023-06-12 14:30)
DX: A41.51 Sepsis due to Escherichia coli [E. coli] (principal); J69.0 Pneumonitis due to inhalation of food and vomit; R65.21 Severe sepsis with septic shock; M79.A3 Nontraumatic compartment syndrome of abdomen; F11.20 Opioid dependence, uncomplicated; C22.0 Liver cell carcinoma; E87.1 Hypo-osmolality and hyponatremia; K81.0 Acute cholecystitis; K76.6 Portal hypertension; Q21.12 Patent foramen ovale; K56.7 Ileus, unspecified; J96.11 Chronic respiratory failure with hypoxia; N17.9 Acute kidney failure, unspecified; K70.31 Alcoholic cirrhosis of liver with ascites; E86.0 Dehydration; Z66 Do not resuscitate; Z51.5 Encounter for palliative care; I48.91 Unspecified atrial fibrillation; I27.81 Cor pulmonale (chronic); I27.29 Other secondary pulmonary hypertension; K76.82 Hepatic encephalopathy; Z99.81 Dependence on supplemental oxygen; R31.0 Gross hematuria; K82.A1 Gangrene of gallbladder in cholecystitis; Z86.11 Personal history of tuberculosis; Z86.19 Personal history of other infectious and parasitic diseases; Z91.041 Radiographic dye allergy status; Z79.82 Long term (current) use of aspirin; Z79.899 Other long term (current) drug therapy
CPT/HCPCS: 36415; 71045; 71250; 74176; 75989; 76705; 80048; 80053; 80076; 80202; 80307; 81001; 82040; 82140; 82550; 82595; 82784; 82803; 82947; 83605; 83615; 83690; 83735; 83874; 83880; 84100; 84300; 84443; 84478; 84484; 85025; 85610; 86021; 86038; 86431; 87040; 87070; 87073; 87077; 87086; 87102; 87107; 87186; 87205; 87640; 87641; 93005; 94002; 94003; 94640; 94660; 94799; 99285; C1729; C1758; J0637; J0696; J1160; J1650; J1885; J1956; J2185; J2250; J2251; J2270; J3010; J3370; P9047; Q9967

== ENCOUNTER 2023-06-12 02:15 | Outpatient (BNV) | payer MEDICARE, MEDICAID, SELFPAY | END 2023-06-12 17:34 | PROVIDERS: Admitting Provider Nurse Practitioner Family; Emergency Provider Internal Medicine; Visit Provider Radiology Diagnostic Radiology | DX: K81.0 Acute cholecystitis (principal) | CPT/HCPCS: 75989 ==

== ENCOUNTER → 2023-06-12 02:15 | Outpatient (BNV) | payer MEDICARE, MEDICAID, SELFPAY | PROVIDERS: Admitting Provider Nurse Practitioner Family; Emergency Provider Internal Medicine; Visit Provider Internal Medicine Cardiovascular Disease | DX: T79.A3XA Traumatic compartment syndrome of abdomen, initial encounter (principal); I48.91 Unspecified atrial fibrillation; A41.50 Gram-negative sepsis, unspecified; K81.0 Acute cholecystitis; R10.9 Unspecified abdominal pain; I95.9 Hypotension, unspecified; R09.02 Hypoxemia; E87.1 Hypo-osmolality and hyponatremia; N17.9 Acute kidney failure, unspecified; N39.0 Urinary tract infection, site not specified; R79.89 Other specified abnormal findings of blood chemistry; I27.20 Pulmonary hypertension, unspecified | CPT/HCPCS: 31500; 36556; 99291 ==

== ENCOUNTER → 2023-06-12 02:15 | Outpatient (BNV) | payer MEDICARE, MEDICAID, SELFPAY | PROVIDERS: Admitting Provider Nurse Practitioner Family; Emergency Provider Internal Medicine; PCP Internal Medicine Geriatric Medicine; Visit Provider Internal Medicine Pulmonary Disease | DX: I50.9 Heart failure, unspecified (principal); N17.9 Acute kidney failure, unspecified; J96.00 Acute respiratory failure, unspecified whether with hypoxia or hypercapnia; T79.A3XA Traumatic compartment syndrome of abdomen, initial encounter; R78.81 Bacteremia; B96.20 Unspecified Escherichia coli [E. coli] as the cause of diseases classified elsewhere; K83.09 Other cholangitis; C79.9 Secondary malignant neoplasm of unspecified site; C22.8 Malignant neoplasm of liver, primary, unspecified as to type; I85.00 Esophageal varices without bleeding; K74.60 Unspecified cirrhosis of liver; B19.20 Unspecified viral hepatitis C without hepatic coma | CPT/HCPCS: 99239; 99499 ==

== ENCOUNTER → 2023-06-12 02:15 | Outpatient (BNV) | payer MEDICARE, MEDICAID, SELFPAY | PROVIDERS: Admitting Provider Nurse Practitioner Family; Emergency Provider Internal Medicine; PCP Internal Medicine Geriatric Medicine; Visit Provider Surgery | DX: K81.0 Acute cholecystitis (principal) | CPT/HCPCS: 99223; 99232 ==